=== PATIENT | male | born 1950 | race Caucasian/White ===

== ENCOUNTER → 2016-04-18 | Outpatient (CLI) | payer OTHER, MEDICARE ==
[~2016-04-18] MED LIST: CIPR-250 PO; GABA300C3 PO; NORC5TAB PO; OMEP20CA3 PO; PARO-39 PO; PRAD150C PO; TYLE325T5 PO; VITAPOW38 PO; Vitamin d OR; calcium OR; multivitamin OR; vitamin B12 OR
--- NOTE | 2016-04-18 15:30 | REP ---
MR LUMBAR SPINE WITHOUT AND WITH CONTRAST: HISTORY: Spondylosis. CONTRAST: ProHance 22 mL. COMPARISON: 06/12/2015. Decreased signal intensity on T2-weighted images is present in the L1-2 through L4-5 intervertebral discs. The discs are decreased in height. These findings are consistent with disc degeneration. A diffuse disc bulge is present at the L1-2 level. There is minimal compression of the thecal sac. The L1 nerves exit the neural foramina without compression. A diffuse disc bulge is present at the L2-3 level. There is minimal compression of the thecal sac. There is hypertrophy of the posterior articulating facets. The L2 nerves exit the neural foramina without compression. A left laminectomy defect is present. Enhancing scar tissue is present at the laminectomy site and in the left lateral aspect of the spinal canal. The scar tissue involves the left L3 nerve. A diffuse disc bugle is present at the L3-4 level. There is minimal compression of the thecal sac. There is hypertrophy of the posterior articulating facets. The L3 nerves exit the neural foramina without compression. A diffuse disc bulge is present at the L4-5 level. There is minimal compression of the thecal sac. There is hypertrophy of the posterior articulating facets. The L4 nerves exit the neural foramina without compression. There is no disc bulge or herniation at the L5-S1 level. The L5 nerves exit the neural foramina without compression. The left L5 and S1 nerves are conjoined. The conus medullaris is normal in appearance terminating at the level of the L1-2 intervertebral disc. A hemangioma is present in the L1 vertebral body. Increased signal intensity on T2-weighted images is present in the endplates of the L2 and 3 vertebral bodies. This represents degenerative change. IMPRESSION: 1. Diffuse disc bulges at the L1-2, L3-4, and L4-5 levels with minimal thecal sac compression. 2. Diffuse disc bulge at the L2-3 level with minimal thecal sac compression. A left laminectomy defect is present. Scar tissues involves the left L3 nerve. The postoperative change is a new finding. Signed by Evert Campa MD 04/18/2016 03:34 P
== END ==
LOC: M RAD 13:48
PROVIDERS: ATTEND Neurological Surgery
DX: M47.16 Other spondylosis with myelopathy, lumbar region (principal)

== ENCOUNTER → 2016-05-11 | Outpatient (CLI) | payer MEDICARE ==
--- NOTE | 2016-05-11 12:51 | REP ---
Clinical: Partial left retinal artery occlusion. Technique: Dutton scale and color Doppler evaluation using linear high frequency transducer Findings: Two-dimensional dutton scale and color images demonstrate normal arterial lumen with laminar flow and no appreciable narrowing. Color Doppler interrogation demonstrates normal arterial wave patterns and velocities with no significant spectral broadening. Normal flow direction is appreciated in the bilateral vertebral arteries. RIGHT (cm/s) LEFT (cm/s) ICA peak systolic velocity 45.2 47.8 ICA diastolic velocity 10.9 16.5 ECA peak systolic velocity 41.8 73.5 CCA peak systolic velocity 85.4 101.6 ICA/CCA ratio 0.5 0.4 Impression: No hemodynamically significant areas of narrowing or stenosis appreciated. Based on set standards narrowing falls within the normal range. Signed by Benjy Crenshaw MD 05/11/2016 12:43 P
== END ==
LOC: M RAD 10:29
PROVIDERS: ATTEND Ophthalmology
DX: H34.212 Partial retinal artery occlusion, left eye (principal)

== ENCOUNTER 2019-12-17 10:53 | Inpatient (IN) | payer MEDICARE ==
[2019-12-17] VITALS (7 sets, daily range): BP systolic 121–136; BP diastolic 58–65
[~2019-12-17] VITALS: Ht 167.6 cm; Wt 117.3 kg
[~2019-12-17 10:53] MED LIST changes: +GABA-843 PO; -GABA300C3 PO; +NORC1TAB7 PO; -NORC5TAB PO; +OMEP1CAP73 PO; -OMEP20CA3 PO; -PARO-39 PO; +PARO20TA4 PO; -PRAD150C PO; +PRAD150C6 PO
[2019-12-17 11:22] LABS: BASO % 0.2 % (0.0-1.0); EOS # 0.1 10^3/uL (0.0-0.5); EOS % 0.7 % (0.0-3.0); HEMATOCRIT 30.1 % (42.0-52.0); HEMOGLOBIN 8.9 g/dl (13.5-17.5); LYMPH # 0.7 10^3/uL (1.5-5.0); LYMPH % 7.8 % (24.0-44.0); MEAN CORPUSCULAR HEMOGLOBIN 25.6 pg (27.0-33.0); MEAN CORPUSCULAR HGB CONC 29.6 g/dl (32.0-36.5); MEAN CORPUSCULAR VOLUME 86.5 fl (80.0-96.0); MONO # 0.6 10^3/uL (0.0-0.8); MONO % 6.2 % (0.0-5.0); NEUTROPHILS # 7.7 10^3/uL (1.5-8.5); NEUTROPHILS % 84.4 % (36.0-66.0); PLATELET COUNT, AUTOMATED 269 10^3/uL (150-450); RED BLOOD COUNT 3.48 10^6/uL (4.30-6.10); WHITE BLOOD COUNT 9.1 10^3/uL (4.0-10.0)
--- NOTE | 2019-12-17 11:25 | REP ---
INDICATION: Syncope/near-syncope. COMPARISON: 06/09/2015. TECHNIQUE: Single frontal portable view of the chest is performed. FINDINGS: There is no acute infiltrate or pulmonary edema. Heart is upper limits of normal in size. There is calcification of the thoracic aorta. The mediastinal silhouette is otherwise unremarkable. IMPRESSION: No acute infiltrate. <Electronically signed by Laith Dutton > 12/17/19 [id number]
[2019-12-17] MEDS ORDERED: ATROPINE SULF 1MG/10ML SYRINGE (J0461) As Ordered ONE (11:32)
[2019-12-17 11:35] LABS: INR 1.77
[2019-12-17 11:36] LABS: PARTIAL THROMBOPLASTIN TIME 27.5 SECONDS (24.2-38.5)
[2019-12-17] MEDS ORDERED: DOBUTamine HCL 500,000 MCG in IV 1 EA IV SCH (11:45)
[2019-12-17] MEDS ORDERED: LR 1,000 ML IV SCH (11:45)
[2019-12-17] MEDS ORDERED: ISOS30TA4 PO (11:59)
[2019-12-17] MEDS ORDERED: XARE20TA PO (11:59)
[2019-12-17] MEDS ORDERED: ATOR40TA75 PO (11:59)
[2019-12-17] MEDS ORDERED: CLOP75TA2 PO (11:59)
[2019-12-17] MEDS ORDERED: METO1TAB32 PO (11:59)
[2019-12-17] MEDS ORDERED: NITR4TASL SL (11:59)
[2019-12-17] MEDS ORDERED: PARO20TA3 PO (11:59)
[2019-12-17] MEDS ORDERED: GABA-843 PO ×2 (11:59)
[2019-12-17] MEDS ORDERED: FLINCHW11 PO (11:59)
[2019-12-17] MEDS ORDERED: MEMA1TAB3 PO (11:59)
[2019-12-17] MEDS ORDERED: AMLO1TAB24 PO (11:59)
[2019-12-17] MEDS ORDERED: PANT20TA51 PO (11:59)
[2019-12-17 12:15] LABS: FREE T4 1.06 NG/DL (0.76-1.46); THYROID STIMULATING HORMONE 1.25 uIU/ML (0.358-3.740)
[2019-12-17] MEDS ORDERED: MIDAZOLAM INJ 2MG/2ML VIAL (J2250 PER 1MG) As Ordered ONE (13:30)
[2019-12-17] MEDS ORDERED: LIDOCAINE 2% 100MG/5ML SDV (FOR ANES.) As Ordered ONE (13:31)
[2019-12-17] MEDS ORDERED: fentaNYL 100 MCG/2 ML INJECTION (J3010) As Ordered ONE (13:31)
[2019-12-17] MEDS ORDERED: propofoL 500 MG/50 ML VIAL As Ordered ONE (13:31)
[2019-12-17] MEDS ORDERED: propofoL 200 MG/20 ML VIAL As Ordered ONE ×2 (13:32→16:04)
[2019-12-17] MEDS ORDERED: LIDOCAINE 1% SDV 30ML VIAL As Ordered ONE (15:10)
[2019-12-17] MEDS ORDERED: ceFAZolin 2 GM/D5W 50 ML IV BAG (J0690 PER 500MG) As Ordered ONE (15:10)
[2019-12-17] MEDS ORDERED: PHENYLephrine HCL 500 MCG/5 ML (100MCG/ML) SYRINGE (J2370) As Ordered ONE (15:50)
[2019-12-17] MEDS ORDERED: ACETAMINOPHEN TAB 650MG DOSE (2X325MG) PO PRN (16:15)
[2019-12-17] MEDS ORDERED: KETOROLAC 30 MG/ML 1ML VIAL IV PRN (16:15)
[2019-12-17] MEDS: LR 500 ML IV SCH ×4 (17:00→19:35)
[2019-12-17] MEDS ORDERED: ONDANSETRON 4MG/2ML VIAL As Ordered ONE (17:12)
--- NOTE | 2019-12-17 17:21 | REP ---
INDICATION: S/P PACEMAKER INSERTION. COMPARISON: 12/17/2019 at 11:12 a.m. TECHNIQUE: AP portable upright semi-erect chest. FINDINGS: There is a new single lead pacer over the left upper chest with skin lidia and the lead extending into the right ventricle. There is no effusion or acute infiltrate heart size exaggerated by lordotic AP portable technique. Lung parks without infiltrate effusion or evidence of edema. IMPRESSION: 1. Single lead pacer over the left upper chest without effusion or pneumothorax on the left side. Pacer lead tip in the right ventricle. 2. No cardiomegaly edema effusion or acute infiltrate. <Electronically signed by Senthil Mejia > 12/17/19 [id number]
[2019-12-17] MEDS ORDERED: ONDANSETRON 4MG/2ML VIAL IV PRN (17:30)
[2019-12-17] MEDS ORDERED: fentaNYL 100 MCG/2 ML INJECTION (J3010) IV PRN (17:30)
[2019-12-17 17:36] LABS: HEMATOCRIT 22.8 % (42.0-52.0)
[2019-12-17] MEDS ORDERED: GABAPENTIN 300 MG CAP PO PRN (17:45)
[2019-12-17 17:46] LABS: HEMOGLOBIN 6.9 g/dl (13.5-17.5)
--- NOTE | 2019-12-17 17:55 | HPEPDOC ---
General Date of Admission 12/17/19 Date of Service: Dec 17, 2019 Chief Complaint The patient is a 69-year-old male admitted with a reason for visit of Symptomatic Bradycardia. Source: Patient Exam Limitations: No limitations Timing/Duration: 4-6 hours Severity: Moderate History of Present Illness Patient is 69 years old male with past medical history of gastric bypass in 2009, atrial fibrillation, hypertension, hyperlipidemia, coronary artery diseases with stents placement 3 weeks ago was admitted to the hospital for pacemaker placement due to hemoglobin block and bradycardia of 30. Dr. Rolle performed procedure, after the procedure patient developed hematemesis. Patient was found to have hemoglobin of 8.9, hematocrit of 30.1. Patient was on the xarelto, aspirin and Plavix after stents placement. Home Medications Scheduled Amlodipine Besylate (Amlodipine Besylate) 5 Mg Tablet, 5 MG PO QHS, (Reported) Atorvastatin Calcium (Atorvastatin Calcium) 40 Mg Tablet, 40 MG PO QHS, (Reported) Clopidogrel Bisulfate (Clopidogrel) 75 Mg Tablet, 75 MG PO DAILY, (Reported) Gabapentin (Gabapentin) 300 Mg Capsule, 300 MG PO QHS, (Reported) Isosorbide Mononitrate (Isosorbide Mononitrate ER) 30 Mg Tab.er.24h, 30 MG PO DAILY, (Reported) Memantine HCl (Memantine HCl) 5 Mg Tablet, 5 MG PO BID, (Reported) Metoprolol Succinate (Metoprolol Succinate) 25 Mg Tab.er.24h, 12.5 MG PO QAM, (Reported) Pantoprazole Sodium (Pantoprazole Sodium) 20 Mg Tablet.dr, 20 MG PO QHS, (Reported) Paroxetine HCl (Paroxetine HCl) 20 Mg Tablet, 20 MG PO DAILY, (Reported) Pedi Multivit No.7/Folic Acid (Flintstones Tab Chew) 100 Mcg Tab.chew, 1 CHW PO DAILY, (Reported) Rivaroxaban (Xarelto) 20 Mg Tablet, 20 MG PO QHS, (Reported) Scheduled PRN Gabapentin (Gabapentin) 300 Mg Capsule, 300 MG PO DAILY PRN for PAIN, (Reported) Nitroglycerin (Nitrostat) 0.4 Mg Tab.subl, 0.4 MG SL NITRO PRN for CHEST PAIN, (Reported) Allergies Coded Allergies: No Known Allergies (Unverified , 12/17/19) Past Medical History Medical History gastric bypass in 2009, atrial fibrillation, hypertension, hyperlipidemia, coronary artery diseases with stents placement 3 weeks ago Surgical History 1. Gastric bypass in 2009. 2. Cholecystectomy in 2005. 3. Appendectomy in 2002. 4. Umbilical hernia repair in the . 5. Bilateral cataract surgery in 2014. 6. He has had multiple surgeries for cleft palate. Cardiac Stents placement in November 2019 Family History I personally reviewed family history and found not pertinent Social History * Smoker: Denies Alcohol: Denies Drugs: denies A-FIB/CHADSVASC A-FIB History Current/History of A-Fib/PAF?: Yes Current PO Anticoag Therapy: Yes Review of Systems Constitutional: Denies: Chills, Fever Eyes: Denies: Pain ENT: Denies: Head Aches Skin: Denies: Rash Pulmonary: Denies: Dyspnea, Cough Cardiovascular: Denies: Chest Pain, Palpitations Gastrointestinal: Reports: Nausea, Vomiting, Hematochezia Genitourinary: Denies: Dysuria Hematologic: Denies: Bruising Endocrine: Denies: Polydipsia, Polyphagia Musculoskeletal: Denies: Neck Pain Neurological: Denies: Weakness Psych: Reports: Mood Normal Physical Examination General Exam: Positive: Alert, Cooperative ENT Exam: Positive: Atraumatic Neck Exam: Positive: Supple; Negative: JVD Chest Exam: Positive: Clear to auscultation Heart Exam: Positive: Irregular Rhythm Telemetry: Positive: Atrial fibrillation Abdomen Exam: Positive: Normal bowel sounds Extremity Exam: Negative: Clubbing, Cyanosis Skin Exam: Positive: Nl turgor and temperature Neuro Exam: Positive: Cranial Nerves 3-12 NL Psych Exam: Positive: Mental status NL Vital Signs Vital Signs Date Time Temp Pulse Resp B/P (MAP) Pulse Ox O2 Delivery O2 Flow Rate FiO2 12/17/19 17:27 71 18 126/60 (82) 97 Nasal Cannula 3 12/17/19 17:00 97.4 Laboratory Data Labs 24H Laboratory Tests 2 12/17/19 11:08: Immature Granulocyte % (Auto) 0.7, Neutrophils (%) (Auto) 84.4H, Lymphocytes (%) (Auto) 7.8L, Monocytes (%) (Auto) 6.2H, Eosinophils (%) (Auto) 0.7, Basophils (%) (Auto) 0.2, Neutrophils # (Auto) 7.7, Lymphocytes # (Auto) 0.7L, Monocytes # (Auto) 0.6, Eosinophils # (Auto) 0.1, Basophils # (Auto) 0.0, Nucleated Red Blood Cells % (auto) 0.0, Magnesium Level 2.0, Thyroid Stimulating Hormone (TSH) 1.250, Free Thyroxine 1.06 12/17/19 11:12: Prothrombin Time 21.0H, Prothromb Time International Ratio 1.77, Activated Partial Thromboplast Time 27.5, Mix PTT Patient/Normal 1:1 12/17/19 11:13: POC Troponin I (Misc) 0.02 12/17/19 11:25: POC Glucose (Misc Panel) 122H, POC Sodium (Misc Panel) 141, POC Potassium (Misc Panel) 4.7, POC Chloride (Misc Panel) 106, POC Total CO2 (Misc Panel) 24.0, POC Blood Urea Nitrogen (Misc Panel 30H, POC Ionized Calcium (Misc Panel) 4.7, POC Creatinine (Misc Panel) 1.0, POC Hematocrit (Misc Panel) 31.0L 12/17/19 11:29: POC Lactate (Misc Panel) 1.46 12/17/19 11:52: Coronavirus (COVID-19)(PCR) NEGATIVE CBC/BMP Laboratory Tests 12/17/19 11:08 Assessment/Plan Patient is 69 years old male with past medical history of gastric bypass in 2009, atrial fibrillation, hypertension, hyperlipidemia, coronary artery diseases with stents placement 3 weeks ago was admitted to the hospital for pacemaker placement due to hemoglobin block and bradycardia of 30. Dr. Rolle performed procedure, after the procedure patient developed hematemesis. Patient was found to have hemoglobin of 8.9, hematocrit of 30.1. Patient was on the xarelto, aspirin and Plavix after stents placement. Problems (1) GI bleed Status: Acute Problem Text: Most likely secondary to triple therapy with xarelto, aspirin and Plavix H&H every 6 hours IV fluid 2 units of blood transfusion Nothing by mouth for now Aspirin, xarelto and Plavix on hold PPI IV (2) Lumbar radiculopathy Status: Acute Problem Text: Continue home meds (3) AV block Status: Acute Problem Text: placed Pacemaker Heart rate under control for now Telemetry (4) Permanent atrial fibrillation Status: Chronic Problem Text: Oral targeted anticoagulation on hold due to GI bleed Heart rate under control (5) Coronary artery disease Status: Chronic Problem Text: Status post cardiac stent placement 3 weeks ago Continue statin Aspirin, Plavix on hold due to acute GI bleed Appreciate/agree with rotary furnace operator consult Plan / VTE VTE Prophylaxis Ordered?: No VTE Exclusion Pharmacological: Active Bleeding CHANDNI BELTRAN DO Dec 17, 2019 17:54
[2019-12-17] MEDS ORDERED: NITROGLYCERIN 0.4 MG SUBL TABLET SL PRN (18:00)
[2019-12-17] MEDS: ATORVASTATIN 20 MG TAB PO SCH (21:00)
[2019-12-17] MEDS: GABAPENTIN 300 MG CAP PO SCH (21:00)
[2019-12-17] MEDS: PANTOPRAZOLE 40MG VIAL (C9113 PER 1) IV SCH (21:51)
[2019-12-17] MEDS: NS 1,000 ML IV SCH (21:51)
[2019-12-17 22:15] LABS: BASO % 0.2 % (0.0-1.0); EOS % 0.1 % (0.0-3.0); HEMATOCRIT 26.2 % (42.0-52.0); LYMPH # 1.1 10^3/uL (1.5-5.0); MEAN CORPUSCULAR HGB CONC 30.5 g/dl (32.0-36.5); MEAN CORPUSCULAR VOLUME 85.1 fl (80.0-96.0); MONO # 0.8 10^3/uL (0.0-0.8); MONO % 7.2 % (0.0-5.0); NEUTROPHILS # 8.9 10^3/uL (1.5-8.5); NEUTROPHILS % 81.9 % (36.0-66.0); PLATELET COUNT, AUTOMATED 220 10^3/uL (150-450); RED BLOOD COUNT 3.08 10^6/uL (4.30-6.10); WHITE BLOOD COUNT 10.9 10^3/uL (4.0-10.0)
[2019-12-17 22:47] LABS: ALBUMIN 2.6 GM/DL (3.2-5.2); ALT/SGPT 15 U/L (12-78); BILIRUBIN,TOTAL 1.2 MG/DL (0.2-1.0); BLOOD UREA NITROGEN 44 MG/DL (7-18); CALCIUM LEVEL 7.9 MG/DL (8.8-10.2); CARBON DIOXIDE LEVEL 25 MEQ/L (21-32); CHLORIDE LEVEL 112 MEQ/L (98-107); CREATININE FOR GFR 1.02 MG/DL (0.70-1.30); GLOMERULAR FILTRATION RATE > 60.0 (>49); GLUCOSE, FASTING 116 MG/DL (70-100); MAGNESIUM LEVEL 1.9 MG/DL (1.8-2.4); POTASSIUM SERUM 4.7 MEQ/L (3.5-5.1); SODIUM LEVEL 142 MEQ/L (136-145); TOTAL PROTEIN 5.4 GM/DL (6.4-8.2)
[2019-12-17] MEDS: ceFAZolin SOD 1 GM in D5W MINI-BAG PLUS 50 ML IV SCH (22:54)
[2019-12-18] VITALS (18 sets, daily range): BP systolic 119–178; BP diastolic 57–95
[2019-12-18 03:14] LABS: HEMATOCRIT 25.2 % (42.0-52.0); HEMOGLOBIN 7.7 g/dl (13.5-17.5)
[2019-12-18] MEDS: NS 1,000 ML IV SCH (05:09)
[2019-12-18] MEDS: ceFAZolin SOD 1 GM in D5W MINI-BAG PLUS 50 ML IV SCH ×2 (06:25→15:35)
--- NOTE | 2019-12-18 07:41 | CR.PDOC ---
General Surgery Consultation Date of Consultation 12/18/19 History and Physical CONSULT REPORT FOR: Dr. Rolle (cardiology), hospitalist service REASON FOR CONSULTATION: Patient is a 69 year old male who was found to have symptomatic bradycardia and had a pacemaker placed. While he was brought in the recovery room he had about 50 mls of hematemesis of (fresh blood and clots). He reports he was feeling "sick" the whole morning and felt better after he vomitted blood. He denies any prior episodes of similar symptoms. He has a history of gastric bypass about 5 years ago. He had an upper endoscopy done in 2016 showing some edema at the gastrojejunostomy but no ulcerations. He is maintained on aspirin, plavix and xarelto for his atrial fibrillation. HISTORY OF PRESENT ILLNESS: PAST MEDICAL HISTORY: 1. . PAST SURGICAL HISTORY: INCLUDES: 1. . PREVIOUS ANESTHESIA REACTIONS: ALLERGIES: Please see below. FAMILY HISTORY: . HOME MEDICATIONS: Please see below. REVIEW OF SYSTEMS: GENERAL: [Denies chills, reports weight gain, reports feeling febrile yesterday]. HEENT: [Denies blurred vision and double vision. Denies ear symptoms. Denies hoarseness]. NECK: Denies any neck pain]. CARDIOVASCULAR: [Denies chest pain and palpitations]. MUSCULOSKELETAL: [Denies arthralgias, back pain and thrombophlebitis]. SKIN: [Denies rash]. NEUROLOGIC: [Denies headache, stroke and transient ischemic attack]. PSYCHIATRIC: [Denies anxiety and depression]. ENDOCRINE: [Denies thyroid disease]. HEMATOLOGY/ONCOLOGY: [Denies bleeding or clotting disorder]. HEART: [Denies any chest pains, palpitations, paroxysmal dyspnea, orthopnea]. PULMONARY: [Denies chronic cough, dyspnea and wheezing]. GASTROINTESTINAL: [Denies rectal bleeding, family history of colon cancer, constipation, diarrhea, dysphagia, heartburn and jaundice]. GENITOURINARY: [Denies dysuria, frequency, hematuria and nocturia]. ENDOCRINE: [Denies polydipsia, polyphagia, polyuria, heat or cold intolerance]. INFECTIOUS: [Denies any recent upper respiratory tract infection, UTI, need for use of antibiotics]. NUTRITION: [Reports good appetite]. PHYSICAL EXAMINATION: VITALS SIGNS: Please see below. GENERAL APPEARANCE:[Patient seen, laying in bed, awake, alert, and oriented. Comfortable, in no acute distress]. SKIN: [Warm and moist]. HEENT: [Normocephalic, atraumatic. Margaret palpebral conjunctiva, anicteric sclerae. Lips and mucosa appear moist]. NECK: [Supple, no thyromegaly. No obvious jugular venous distention]. LUNGS: [Clear to auscultation bilaterally. No wheezing appreciated]. HEART: [No chest wall abnormalities. Regular rate and rhythm with no murmurs appreciated]. ABDOMEN: Abdomen is , soft, . [No hepatosplenomegaly. No umbilical or groin herniations, nondistended. No noticeable rebound or guarding. No grimacing with palpation. No rebound tenderness. No masses appreciated]. EXTREMITIES: [Extremities have no deformities. No edema identified] ANCILLARIES: . LABORATORY DATA: Please see below. IMAGING STUDIES: . IMPRESSION AND PLAN: hematemesis. Upper gastrointestinal bleeding gasric bypass status symptomatic bradycardia Patient received 3 u prbc overnight, hemodynamically stable. Will bring him to OR for diagnostic and possibly therapeutic upper gastrointestinal endoscopy. Vital Signs Vital Signs Date Time Temp Pulse Resp B/P (MAP) Pulse Ox O2 Delivery O2 Flow Rate FiO2 12/18/19 05:02 98.7 75 140/65 96 Nasal Cannula 3.0 12/18/19 04:00 16 I&Os I&O- Last 24 Hours up to 6 AM 12/18/19 06:00 Intake Total 2165 ml Output Total 1880 ml Balance 285 ml Laboratory Data Labs 24H Laboratory Tests 2 12/17/19 11:08: Immature Granulocyte % (Auto) 0.7, Neutrophils (%) (Auto) 84.4H, Lymphocytes (%) (Auto) 7.8L, Monocytes (%) (Auto) 6.2H, Eosinophils (%) (Auto) 0.7, Basophils (%) (Auto) 0.2, Neutrophils # (Auto) 7.7, Lymphocytes # (Auto) 0.7L, Monocytes # (Auto) 0.6, Eosinophils # (Auto) 0.1, Basophils # (Auto) 0.0, Nucleated Red Blood Cells % (auto) 0.0, Magnesium Level 2.0, Thyroid Stimulating Hormone (TSH) 1.250, Free Thyroxine 1.06 12/17/19 11:12: Prothrombin Time 21.0H, Prothromb Time International Ratio 1.77, Activated Partial Thromboplast Time 27.5, Mix PTT Patient/Normal 1:1 12/17/19 11:13: POC Troponin I (Misc) 0.02 12/17/19 11:25: POC Glucose (Misc Panel) 122H, POC Sodium (Misc Panel) 141, POC Potassium (Misc Panel) 4.7, POC Chloride (Misc Panel) 106, POC Total CO2 (Misc Panel) 24.0, POC Blood Urea Nitrogen (Misc Panel 30H, POC Ionized Calcium (Misc Panel) 4.7, POC Creatinine (Misc Panel) 1.0, POC Hematocrit (Misc Panel) 31.0L 12/17/19 11:29: POC Lactate (Misc Panel) 1.46 12/17/19 11:52: Coronavirus (COVID-19)(PCR) NEGATIVE 12/17/19 22:03: Immature Granulocyte % (Auto) 0.6, Neutrophils (%) (Auto) 81.9H, Lymphocytes (%) (Auto) 10.0L, Monocytes (%) (Auto) 7.2H, Eosinophils (%) (Auto) 0.1, Basophils (%) (Auto) 0.2, Neutrophils # (Auto) 8.9H, Lymphocytes # (Auto) 1.1L, Monocytes # (Auto) 0.8, Eosinophils # (Auto) 0.0, Basophils # (Auto) 0.0, Nucleated Red Blood Cells % (auto) 0.0, Anion Gap 5L, Glomerular Filtration Rate > 60.0, Calcium Level 7.9L, Magnesium Level 1.9, Total Bilirubin 1.2H, Aspartate Amino Transf (AST/SGOT) 17, Alanine Aminotransferase (ALT/SGPT) 15, Alkaline Phosphatase 52, Total Protein 5.4L, Albumin 2.6L, Albumin/Globulin Ratio 0.9 CBC/BMP Laboratory Tests 12/17/19 11:08 12/17/19 17:28 12/17/19 22:03 12/18/19 03:05 Home Medications Scheduled Amlodipine Besylate (Amlodipine Besylate) 5 Mg Tablet, 5 MG PO QHS, (Reported) Atorvastatin Calcium (Atorvastatin Calcium) 40 Mg Tablet, 40 MG PO QHS, (Reported) Clopidogrel Bisulfate (Clopidogrel) 75 Mg Tablet, 75 MG PO DAILY, (Reported) Gabapentin (Gabapentin) 300 Mg Capsule, 300 MG PO QHS, (Reported) Isosorbide Mononitrate (Isosorbide Mononitrate ER) 30 Mg Tab.er.24h, 30 MG PO DAILY, (Reported) Memantine HCl (Memantine HCl) 5 Mg Tablet, 5 MG PO BID, (Reported) Metoprolol Succinate (Metoprolol Succinate) 25 Mg Tab.er.24h, 12.5 MG PO QAM, (Reported) Pantoprazole Sodium (Pantoprazole Sodium) 20 Mg Tablet.dr, 20 MG PO QHS, (Reported) Paroxetine HCl (Paroxetine HCl) 20 Mg Tablet, 20 MG PO DAILY, (Reported) Pedi Multivit No.7/Folic Acid (Flintstones Tab Chew) 100 Mcg Tab.chew, 1 CHW PO DAILY, (Reported) Rivaroxaban (Xarelto) 20 Mg Tablet, 20 MG PO QHS, (Reported) Scheduled PRN Gabapentin (Gabapentin) 300 Mg Capsule, 300 MG PO DAILY PRN for PAIN, (Reported) Nitroglycerin (Nitrostat) 0.4 Mg Tab.subl, 0.4 MG SL NITRO PRN for CHEST PAIN, (Reported) Allergies Coded Allergies: No Known Allergies (Unverified , 12/17/19) BETH HURLEY MD Dec 18, 2019 07:41
--- NOTE | 2019-12-18 08:36 | REP ---
INDICATION: Post pacemaker. COMPARISON: Comparison chest x-ray December 17, 2019. TECHNIQUE: Two views.. FINDINGS: A unipolar pacemaker is again seen in the right heart view of the left side. Skin lidia seen adjacent to the power plant. There is no evidence of pneumothorax or hydrothorax. Cardiomegaly persists unchanged. The aorta is calcific and tortuous. Monitoring electrodes and oxygen delivery tubing is seen. No infiltrate or effusion is seen. IMPRESSION: Status post transvenous pacemaker insertion. No complication seen. Cardiomegaly.. <Electronically signed by Al Wolfe > 12/18/19 0814
[2019-12-18] MEDS: D5W/0.45% SODIUM CHLORIDE 1,000 ML IV SCH ×2 (08:47→18:56)
[2019-12-18] MEDS: PANTOPRAZOLE 40MG VIAL (C9113 PER 1) IV SCH ×2 (08:51→21:47)
[2019-12-18] MEDS: PARoxetine 20 MG TAB PO SCH (08:51)
[2019-12-18 09:04] LABS: BASO % 0.3 % (0.0-1.0); EOS # 0.1 10^3/uL (0.0-0.5); EOS % 0.5 % (0.0-3.0); HEMATOCRIT 27.5 % (42.0-52.0); HEMOGLOBIN 8.6 g/dl (13.5-17.5); LYMPH # 1.2 10^3/uL (1.5-5.0); LYMPH % 12.8 % (24.0-44.0); MEAN CORPUSCULAR HEMOGLOBIN 26.4 pg (27.0-33.0); MEAN CORPUSCULAR HGB CONC 31.3 g/dl (32.0-36.5); MEAN CORPUSCULAR VOLUME 84.4 fl (80.0-96.0); MONO # 0.9 10^3/uL (0.0-0.8); MONO % 9.7 % (0.0-5.0); NEUTROPHILS % 75.8 % (36.0-66.0); PLATELET COUNT, AUTOMATED 210 10^3/uL (150-450); RED BLOOD COUNT 3.26 10^6/uL (4.30-6.10); WHITE BLOOD COUNT 9.2 10^3/uL (4.0-10.0)
[2019-12-18 09:22] LABS: BLOOD UREA NITROGEN 32 MG/DL (7-18); CALCIUM LEVEL 8.1 MG/DL (8.8-10.2); CARBON DIOXIDE LEVEL 26 MEQ/L (21-32); CHLORIDE LEVEL 112 MEQ/L (98-107); CREATININE FOR GFR 0.88 MG/DL (0.70-1.30); GLOMERULAR FILTRATION RATE > 60.0 (>49); GLUCOSE, FASTING 90 MG/DL (70-100); POTASSIUM SERUM 4.1 MEQ/L (3.5-5.1); SODIUM LEVEL 143 MEQ/L (136-145)
--- NOTE | 2019-12-18 10:45 | IPNPDOC ---
Text Note Date of Service The patient was seen on 12/18/19. NOTE Subjective: Patient received 3 units of blood transfusion since last evening. Patient stated that he feels better. Patient continues to have bowel movement with blood. Objective: GENERAL APPEARANCE: NAD HEENT: no scleral icterus, no JVD, EOMI CARDIOVASCULAR: S1S2, pacemaker in place LUNGS: CTA ABDOMEN: soft & not tender w palpitation MUSCULOSKELETAL: no cyanosis, no swelling INTEGUMENT: no generalized palor NEUROLOGICAL: cranial nerve function from 2-12 intact intact, follows commands, speech not dysarthric Patient is 69 years old male with past medical history of gastric bypass in 2009, atrial fibrillation, hypertension, hyperlipidemia, coronary artery d iseases with stents placement 3 weeks ago was admitted to the hospital for pacemaker placement due to hemoglobin block and bradycardia of 30. Dr. Rolle performed procedure, after the procedure patient developed hematemesis. Patient was found to have hemoglobin of 8.9, hematocrit of 30.1. Patient was on the xarelto, aspirin and Plavix after stents placement. Problems (1) GI bleed Most likely secondary to triple therapy with xarelto, aspirin and Plavix H&H every 6 hours IV fluid Total 3 units of blood transfusion. Hemoglobin stable Nothing by mouth for now. Dr. Medina planned EGD today Aspirin, xarelto and Plavix on hold PPI IV (2) Lumbar radiculopathy Continue home meds (3) AV block placed Pacemaker Heart rate under control for now Telemetry (4) Permanent atrial fibrillation Oral targeted anticoagulation on hold due to GI bleed Heart rate under control (5) Coronary artery disease Status post cardiac stent placement 3 weeks ago Continue statin Aspirin, Plavix on hold due to acute GI bleed Appreciate/agree with leasing agent consult Felix VALLEJO, I+O Felix VALLEJO, I+O Laboratory Tests 12/17/19 11:08 12/17/19 17:28 12/17/19 22:03 12/18/19 03:05 12/18/19 08:40 Vital Signs Date Time Temp Pulse Resp B/P (MAP) Pulse Ox O2 Delivery O2 Flow Rate FiO2 12/18/19 10:00 63 92 Room Air 12/18/19 08:07 98.1 18 152/95 (114) 2.0 I&O- Last 24 Hours up to 6 AM 12/18/19 05:59 Intake Total 1665 ml Output Total 1880 ml Balance -215 ml CHANDNI BELTRAN DO Dec 18, 2019 10:45
--- NOTE | 2019-12-18 11:34 | ECGEPIP ---
[facility] - ED Test Date: 2019-12-17 Pat Name: BRUNO CADE Department: Room: - Gender: Male Director Of Digital Technology: RONALD : 1950 Requested By: JESSE MARINO Order Number: [id number] Reading MD: Renan Romero Measurements Intervals [place] Rate: 53 P: [place]: 0 QRS: 62 QRSD: 87 T: 51 QT: 421 QTc: 398 Interpretive Statements ATRIAL FIBRILLATION WITH SLOW VENTRICULAR RESPONSE SIMILAR TO 06/09/15 Electronically Signed on 12-18-2019 11:33:46 EST by Renan Romero
--- NOTE | 2019-12-18 13:05 | RO ---
DATE OF OPERATION: 12/17/2019 PREOPERATIVE DIAGNOSIS: High-grade atrioventricular (AV) block/chronic atrial fibrillation. POSTOPERATIVE DIAGNOSIS: High-grade atrioventricular (AV) block/chronic atrial fibrillation. PROCEDURE: Implantation of single-chamber ventricular demand pacemaker. IMPLANTING ANVILSMITH: Dr. Doroteo Rolle ANESTHESIOLOGIST: Dr. Helio Mitchell TYPE OF ANESTHESIA: Monitored local anesthesia. 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 Culver for chronic hypertensive heart disease complicated by abnormal EKG and permanent atrial fibrillation. Several months ago, he began having effort-related chest discomfort and underwent testing leading to cardiac catheterization proving high-grade single vessel coronary disease which was successfully stented three weeks ago. He has been on a combination of Xarelto, aspirin, and Plavix. Presents to the emergency room today by ambulance having been found collapsed from the toilet this morning. EMS at the scene recorded heart rates in the 30s per minute. Upon his arrival in our emergency room, he was alert and oriented with heart rate initially 63 beats per minute with blood pressure 155/70 but intermittently was dropping his rate into the low 40s and upper 30s. In the absence of any clear triggering mechanism, Dr. Serrano (covering for Dr. Culver) recommended referral to our pacemaker service. The patient had been NPO from the night before and had last taken his combination anticoagulant/antiplatelet therapy the night before. OTHER PAST MEDICAL HISTORY: Includes longstanding obesity, status post gastric bypass surgery 2009; prior gastritis with upper GI endoscopy March 2014 documenting a hiatal hernia with gastric bypass with small sized pouch, intact staple line with slight gastrojejunal erythema and swelling but no evidence of any bleeding. This pleasant, obese, late middle-aged male lay comfortably. Heart rate at the time of my examination was in the 60s and the regular blood pressure was 155/70 supine, respiratory rate was 16, O2 saturation was 99% on room air. He was afebrile. Weight: 259 pounds. Height: 66 inches. Appeared slightly pale but no icterus. Normal oral moisture. Trachea midline. Neck veins were 2-3 cm above the sternal angle. Normal carotid upstrokes with variable volume related to his arrhythmia. No bruits. Increased anteroposterior chest diameter with symmetrical air entry for both lung parks with no current abnormal adventitious sounds. Apical impulse not palpable. Heart sounds were variable because of his arrhythmia. He has an audible systolic ejection murmur that varied related to his arrhythmia. No diastolic murmur. His abdomen was soft and nontender with no obvious hepatosplenomegaly. Has pitting edema two-thirds up both lower legs with dilated superficial venules. Pedal pulses were symmetrical and palpable. Portable upright chest x-rays in the emergency room showed heart size upper limits of normal with some calcification of the thoracic aorta but normal pulmonary vasculature, clear lung parks with no acute infiltrate or pleural effusion. EKG showed underlying atrial fibrillation with controlled ventricular response averaging in the 60s. There were low voltages with persistent S-waves in v5 and v6 in keeping with his body habitus. No evidence of prior infarction. Subtle infra-apical ST scooping but no significant change from the past. Blood work showed a hemoglobin of 8.9 but the patient adamantly denied any recent GI bleeding including melena. White blood cell count and platelet counts were normal. PT/INR was elevated at 21/1.77. Normal PTT. Chemistry confirmed electrolyte balance with BUN of 30, creatinine of 1.0; random glucose was normal. Ultra sensitive TSH was normal at 1.25. Magnesium was normal at 2.0. Troponin-I level was negative. DESCRIPTION OF PROCEDURE: With the patient in a fasting state, having signed informed consent, and having received Ancef 2 grams IV premedication, he was taken to the operating theater. Numerous skin electrodes were applied to facilitate continuous electrocardiographic monitoring. The left subclavian region was prepped and draped in the usual fashion, and the skin was infiltrated with 1% Xylocaine. The left subclavian vein was catheterized using the micropuncture technique. A 5-cm linear incision was made several centimeters below and parallel to the left clavicle. Dissection was carried down to the level of the pectoralis fascia and a pocket was fashioned below the level of the incision line. A single bipolar, screw-in active fixation pacing lead was then positioned to the right ventricular apex under fluoroscopic and electrocardiographic control. The right ventricular lead ([employer], model number [id number], serial number [id number]) measurements were focal and simulation threshold of 1.0V/0.4 ms/impedance 650 ohms. The R wave amplitudes measured 12.0 mV. This lead was secured in position with a sleep suture at its insertion site. It was then connected to a single-chamber pulse generator ([employer], model number [id number], serial number [id number]) and appropriate VVI pacing was documented. The pulse generator was placed in the pocket and secured in position with a suture through the right upper-hand corner of the epoxy header. The subcutaneous tissues were approximated using a running chromic suture and the skin was closed using lidia. A dry dressing was applied and the patient was returned to the recovery room in good condition. Despite the patient's combination Xarelto, aspirin and Plavix, estimated blood loss was no more than 5-10 mL. No apparent complications in the operating room. Postoperative upright chest x-ray confirmed stable lead position with no pneumothorax. His postoperative EKG showed atrial fibrillation with a controlled ventricular response. His device appropriately sensing his spontaneous activity and currently inhibited. Within a short time of his arrival in the emergency room, patient had a bout of hematemesis with clot of at least 50 mL. In light of his combination of anticoagulant and antiplatelet therapy, precaution was taken ahead of time to arrange for blood bank typing and crossing. Associated with his hematemesis, his blood pressure dipped to 88/60. He responded well to a bolus of 500 mL of Ringer's lactate and we requested two units of packed red blood cells promptly. At this point, consultations were placed with general surgery - Dr. Medina - as well as the hospitalist service. Dr. Serrano was notified of his problems. The patient was transferred in a stable position to the intensive care unit for close observation. Dr. Medina and the hospitalist service will be caring for his medical problems. We will continue to check his pacemaker and have ordered Ancef 1 gram IV every 8 hours for three doses. MTDD
[2019-12-18] MEDS ORDERED: fentaNYL 100 MCG/2 ML INJECTION (J3010) As Ordered ONE (13:19)
[2019-12-18] MEDS ORDERED: LIDOCAINE 2% 100MG/5ML SDV (FOR ANES.) As Ordered ONE (13:19)
[2019-12-18] MEDS ORDERED: propofoL 200 MG/20 ML VIAL As Ordered ONE (13:19)
[2019-12-18] MEDS ORDERED: MIDAZOLAM 5MG/ML 1ML VIAL (J2250 PER 1MG) As Ordered ONE (13:19)
[2019-12-18] MEDS ORDERED: CETACAINE SPRAY 5GM As Ordered ONE (13:43)
[2019-12-18] MEDS ORDERED: EPINEPHrine 1MG/10ML SYRINGE 1.5IN As Ordered ONE (14:17)
[2019-12-18] MEDS ORDERED: SUCCINYLCHOLINE 100 MG/5 ML SYRINGE (J0330) As Ordered ONE (14:24)
[2019-12-18] MEDS ORDERED: ROCURONIUM BROMIDE 50 MG/5 ML VIAL As Ordered ONE (14:24)
[2019-12-18] MEDS ORDERED: dexameTHASONE 4 MG/ML 1ML VIAL (J1100 PER 1MG) As Ordered ONE (14:31)
[2019-12-18] MEDS ORDERED: ONDANSETRON 4MG/2ML VIAL As Ordered ONE (14:31)
[2019-12-18] MEDS ORDERED: SUGAMMADEX SODIUM 500 MG/5 ML VIAL (BRIDION) As Ordered ONE (14:36)
[2019-12-18] MEDS ORDERED: ceFAZolin 1GM VIAL (J0690 PER 500MG) As Ordered ONE (15:22)
[2019-12-18] MEDS ORDERED: LR 1,000 ML IV SCH (16:00)
[2019-12-18] MEDS ORDERED: ONDANSETRON 4MG/2ML VIAL IV PRN (16:00)
[2019-12-18] MEDS ORDERED: METOCLOPRAMIDE INJ 10MG/2ML VIAL (J2765 PER 1) IV PRN (16:00)
[2019-12-18] MEDS ORDERED: fentaNYL 100 MCG/2 ML INJECTION (J3010) IV PRN (16:00)
--- NOTE | 2019-12-18 16:53 | CR ---
DATE OF CONSULTATION: 12/17/2019 REFERRING PHYSICIAN: Dr. Allen REASON FOR CONSULTATION: Bradycardia and syncope. HISTORY OF PRESENT ILLNESS: Mr. Villa presented to emergency room by ambulance earlier today after he suffered near syncopal event at home. He woke up with the sensation of urgency, went to the bathroom and had a bowel movement; and after he stood up from toilet and was walking back towards his bedroom had near syncopal event. His called ambulance; and on arrival, he was found to be quite bradycardic with recorded heart rate in the 30s and underlying atrial fibrillation. On the way to the hospital, his condition stabilized; and while in the emergency room, he was running relatively bradycardic with heart rate around 50 beats per minute with atrial fibrillation. Then he had yet an another near syncope during which his heart rate slowed down into 30s. Subsequently, it was felt that bradycardia is likely responsible for his hypotension and he was taken to the OR by Dr. Rolle and a single chamber pacemaker was implanted. In the recovery period though, he had yet another near syncopal event; this time with pacemaker already in place. It was followed by hemoptysis or possibly emesis with a significant amount of blood. At this point, the patient admitted that this morning the bowel movement looked very dark to him. He cannot provide much additional details. His admission hemoglobin was 8.9 and dropped down to 6.9; and at this point, it became obvious that the near syncopal events were likely related to blood loss rather than bradycardia, even though it likely was contributing as well. When I saw the patient in the recovery room, he felt comfortable. He denies any chest discomfort. He denies any sensation of palpitations, denies any dyspnea. He has not noted any consistent melena, even though he does watch his bowel movements regularly. He denies any prior episodes of hematemesis or hemoptysis. PAST MEDICAL HISTORY: 1. Coronary artery disease. He had cardiac catheterization on November 24 and received drug-eluting stent to right coronary artery for single vessel CAD. He had low normal left ventricular systolic function and high LVEDP. 2. Hypertension. 3. Dyslipidemia. 4. Obstructive sleep apnea. 5. Chronic atrial fibrillation. 6. History of morbid obesity with history of bariatric surgery. 7. Gastroesophageal reflux disease (GERD). 8. Anxiety. 9. History of melanoma. SURGICAL HISTORY: Positive for appendectomy, bariatric surgery, cleft palate repair, and hernia repair and currently a pacemaker implant earlier today. SOCIAL HISTORY: The patient is , never smoked, as noted lives with his , no significant alcohol use. FAMILY HISTORY: His mother of cancer and father of kidney disease. REVIEW OF SYSTEMS: As per history of present illness, otherwise negative. He specifically denies any prior obvious bleeding events. He has not had any recent chest pains and coronary intervention. No prior history of syncope or near syncope. No fever, chills, nausea or vomiting. The rest as per history of present illness or negative. OUTPATIENT MEDICATIONS: Aspirin 81 mg a day, Plavix 75 mg a day, Xarelto 20 mg a day, Paxil 20 mg a day, Prilosec 20 mg a day, Toprol XL 12.5 mg a day, Namenda 5 mg daily, isosorbide mononitrate 50 mg daily, Neurontin 300 mg daily, vitamin D3, atorvastatin 40 mg daily and amlodipine 5 mg daily. PHYSICAL EXAMINATION: The patient is an obese, elderly man who appears approximately his age. On my examination, he was completely flat in bed, look comfortable. Denies any symptoms. Vital signs: Blood pressure 121/58, heart rate in 70s, atrial fibrillation with occasional pacing, saturation was 96% on 3 liters oxygen by nasal cannula. Weight was recorded in the emergency room of 117.3 kg. He was alert, oriented and appropriate. I did not appreciate any jugular venous pressure elevation. Lungs were reasonably clear. He had bandaged pacemaker site under his left clavicle with a sling on left upper extremity. Heart examination otherwise irregularly irregular rhythm. I did not appreciate any distinct murmur or gallop. Lungs were clear with good air movement. Abdomen obese, but soft without obvious tenderness. No peripheral edema Peripheral pulses palpable. Neurologically, he was intact. LABORATORY DATA: Complete blood count (CBC) on admission revealed hemoglobin 8.9 which subsequently dropped to 6.9, but at 10 o'clock shortly before my dictation. It is up again to 8.0 after transfusions. WBC count was 9.0 and platelet count 269,000. TSH 1.2, magnesium 2.0, INR 1.8. Chest x-ray: Otherwise for pacemaker placement, reveals appropriate position of the lead and no evidence for pneumothorax. ECG revealed atrial fibrillation with right bundle branch block, non-specific repolarization abnormalities. ASSESSMENT AND PLAN: Mr. Villa is a 69-year-old man who has recent history of intervention with drug-eluting stent to right coronary artery and chronic atrial fibrillation. He was on an outpatient basis on combination of aspirin, Plavix and Xarelto. Apparently, he presented with near syncope and was found to be simultaneously bradycardic, as well as having most likely GI bleed. I suspect peptic ulcer disease considering history of bariatric surgery. At this point, his antiplatelet medications and Xarelto will be held at least until tomorrow, and then it can be decided when to restart it. My recommendation would be to restart Plavix first, as soon as possible, while his hemoglobin stabilizes and possibly after endoscopy is performed and appropriate. The Xarelto can be held for several days until it is safe to restart anticoagulation with only single antiplatelet agent. Otherwise, his current medications can be continued. He received 2 units of blood and he can receive more if hemoglobin becomes unstable. Otherwise, I do not have any further recommendations. Obviously, he will be monitored overnight and complete blood count (CBC) will be followed closely. I spoke about the patient with Dr. Allen and I also spoke with Dr. Culver, who is his regular assistant media buyer and will see the patient in follow up tomorrow. VAUGHN
[2019-12-18] MEDS: SUCRALFATE 1 GM TAB PO SCH ×2 (17:15→21:47)
[2019-12-18 17:28] LABS: HEMATOCRIT 31.2 % (42.0-52.0); HEMOGLOBIN 9.8 g/dl (13.5-17.5)
[2019-12-18] MEDS ORDERED: lisinopriL 20 MG TAB PO ONE (19:00)
[2019-12-18 21:01] LABS: HEMATOCRIT 27.8 % (42.0-52.0); HEMOGLOBIN 8.4 g/dl (13.5-17.5)
[2019-12-18] MEDS: GABAPENTIN 300 MG CAP PO SCH (21:47)
[2019-12-18] MEDS: ATORVASTATIN 20 MG TAB PO SCH (21:47)
[2019-12-18] MEDS: amLODIPine 5 MG TAB PO SCH (21:50)
[2019-12-19 02:00] VITALS: BP 126/55
[2019-12-19 03:11] LABS: HEMOGLOBIN 7.9 g/dl (13.5-17.5)
[2019-12-19 03:36] VITALS: O2SAT 100
[2019-12-19] MEDS: D5W/0.45% SODIUM CHLORIDE 1,000 ML IV SCH ×3 (03:57→16:30)
[2019-12-19 06:00] VITALS: BP 124/57
[2019-12-19 06:26] LABS: BLOOD UREA NITROGEN 24 MG/DL (7-18); CALCIUM LEVEL 7.9 MG/DL (8.8-10.2); CARBON DIOXIDE LEVEL 28 MEQ/L (21-32); CHLORIDE LEVEL 113 MEQ/L (98-107); CREATININE FOR GFR 0.93 MG/DL (0.70-1.30); GLOMERULAR FILTRATION RATE > 60.0 (>49); GLUCOSE, FASTING 127 MG/DL (70-100); POTASSIUM SERUM 4.4 MEQ/L (3.5-5.1); SODIUM LEVEL 143 MEQ/L (136-145)
[2019-12-19] MEDS: lisinopriL 20 MG TAB PO SCH (09:00)
[2019-12-19] MEDS: PANTOPRAZOLE 40MG VIAL (C9113 PER 1) IV SCH ×2 (09:08→21:47)
[2019-12-19] MEDS: SUCRALFATE 1 GM TAB PO SCH ×4 (09:13→21:47)
[2019-12-19] MEDS: PARoxetine 20 MG TAB PO SCH (09:13)
[2019-12-19] MEDS: METOPROLOL SUCC *XL* 12.5MG PER 1/2 TAB (TopROL *XL*) PO SCH (09:18)
[2019-12-19 09:42] LABS: BASO % 0.1 % (0.0-1.0); EOS % 0.2 % (0.0-3.0); HEMOGLOBIN 8.7 g/dl (13.5-17.5); LYMPH # 1.1 10^3/uL (1.5-5.0); LYMPH % 9.1 % (24.0-44.0); MEAN CORPUSCULAR HEMOGLOBIN 26.3 pg (27.0-33.0); MEAN CORPUSCULAR VOLUME 87.6 fl (80.0-96.0); MONO # 0.5 10^3/uL (0.0-0.8); MONO % 4.1 % (0.0-5.0); NEUTROPHILS # 10.1 10^3/uL (1.5-8.5); NEUTROPHILS % 85.7 % (36.0-66.0); PLATELET COUNT, AUTOMATED 269 10^3/uL (150-450); RED BLOOD COUNT 3.31 10^6/uL (4.30-6.10); WHITE BLOOD COUNT 11.8 10^3/uL (4.0-10.0)
[2019-12-19 09:47] LABS: CALCIUM LEVEL 8.3 MG/DL (8.8-10.2); CREATININE FOR GFR 1.29 MG/DL (0.70-1.30); GLOMERULAR FILTRATION RATE 58.8 (>49); POTASSIUM SERUM 4.1 MEQ/L (3.5-5.1)
[2019-12-19 10:00] VITALS: BP 128/59
--- NOTE | 2019-12-19 11:31 | IPN ---
DATE: 12/19/2019 SUBJECTIVE: The patient had EGD yesterday that revealed a bleeding ulcer. He has been feeling well though. Since his last bowel movement that was yesterday, he denies having additional one. Denies any nausea. There has been no vomiting. He also denies any chest pain or shortness of breath. OBJECTIVE: VITAL SIGNS: Blood pressure 124/57. Heart rate has been in the 60s and 70s atrial fibrillation. He is afebrile. Oxygen saturation 100% on 1 L of oxygen by nasal cannula. Weight has not been recorded yet this morning. GENERAL APPEARANCE: He is alert, oriented, and appropriate. NECK: Jugular venous pressure (JVP) does not look high. LUNGS: Clear with good air movement. HEART: Reveals irregularly irregular rhythm without gallop, rub, or murmur. There is a dressing over his pacemaker in the left subclavian pocket. ABDOMEN: Obese, but soft without obvious tenderness. EXTREMITIES: Free of edema. Peripheral pulses are palpable. NEUROLOGIC: He is intact. LABORATORY DATA: His hemoglobin has been monitored throughout day and night. Yesterday he received a total of three units of packed red blood cells. At 5:20 yesterday afternoon, his hemoglobin was 9.8 then dipped down to 8.4 and then 7.9 this morning. He is scheduled to have another one at 9 o'clock this morning. Basic metabolic panel is essentially normal. ASSESSMENT AND PLAN: The patient is a 69-year-old man who has chronic atrial fibrillation and underwent intervention to the right coronary artery with a drug-eluting stent three weeks ago. He was on a combination of aspirin, Plavix, and Xarelto, and presented with a syncopal event that likely was a combination of bradycardia and gastrointestinal (GI) bleeding. Esophagogastroduodenoscopy (EGD) yesterday revealed a bleeding ulcer. Currently, he has been off anticoagulation and off antiplatelet agents second day. I am really worried, because his coronary stent was very recently, but because his hemoglobin is still dropping, I do not believe that we can restart Plavix yet. But once the hemoglobin stabilizes, it will be imperative to restart his Plavix as soon as possible. I am hopeful that we will be able to do it later today and/or tomorrow, but if his hemoglobin continues to drop, then we will to have no choice but to wait. I expressed this concern to the patient. I also stressed to him that he cannot flush any bowel movements, and he has to report every single bowel movement that he has to the nursing staff. He is eager to go home because he has been feeling well, but I explained to him that this is still a very unstable situation, and we will have to monitor him for at least a few more days. I will be off as of this afternoon and Dr. Culver will be covering the service. VAUGHN
--- NOTE | 2019-12-19 12:47 | ROOR ---
Patient Name: Christian Villa Procedure Date: 12/18/2019 12:32 PM Date of : 1950 Age: 69 Room: Main OR Gender: Male Note Status: Finalized Procedure: Upper GI endoscopy Indications: Hematemesis, Melena Providers: Vicente Medina MD Referring MD: 2. Inpatient 2. Inpatient Requesting Provider: Medicines: Monitored Anesthesia Care Complications: No immediate complications. Procedure: Pre-Anesthesia Assessment: - Prior to the procedure, a History and Physical was performed, and patient medications and allergies were reviewed. The patient is competent. The risks and benefits of the procedure and the sedation options and risks were discussed with the patient. All questions were answered and informed consent was obtained. Patient identification and proposed procedure were verified by the physician, the nurse and the cellophane worker in the procedure room. Mental Status Examination: alert and oriented. Airway Examination: normal oropharyngeal airway and neck mobility. Respiratory Examination: clear to auscultation. CV Examination: irregularly irregular rate and rhythm. Prophylactic Antibiotics: The patient does not require prophylactic antibiotics. Prior Anticoagulants: The patient has taken Xarelto (rivaroxaban), last dose was 2 days prior to procedure. ASA Grade Assessment: IV - A patient with severe systemic disease that is a constant threat to life. After reviewing the risks and benefits, the patient was deemed in satisfactory condition to undergo the procedure. The anesthesia plan was to use monitored anesthesia care (MAC). Immediately prior to administration of medications, the patient was re-assessed for adequacy to receive sedatives. The heart rate, respiratory rate, oxygen saturations, blood pressure, adequacy of pulmonary ventilation, and response to care were monitored throughout the procedure. The physical status of the patient was re-assessed after the procedure. The Endoscope was introduced through the mouth, and advanced to the efferent jejunal loop. The upper GI endoscopy was performed with moderate difficulty due to excessive bleeding. Successful completion of the procedure was aided by General Endotracheal anesthesia used. The patient tolerated the procedure fairly well. Findings: There is no endoscopic evidence of bleeding, areas of erosion or mucosal abnormalities in the entire esophagus. Localized moderate inflammation with hemorrhage characterized by congestion (edema), erosions and deep ulcerations was found in the gastric fundus. To stop active bleeding, one hemostatic clip was successfully placed (MR conditional). Bleeding worsened with clip as the tissues are quite friable around the ulcer. Area was successfully injected with 10 mL of a 1:10,000 solution of epinephrine for hemostasis. Estimated blood loss: 30 mL requiring treatment with epinephrine. A single diminutive sessile polyp with bleeding was found in the gastric fundus. For hemostasis, one hemostatic clip was successfully placed (MR conditional). Bleeding had stopped at the end of the procedure. The examined jejunum was normal. No signs of inflammation, ulcers at the small bowel side of gastrojejunostomy Impression: - Chronic gastritis with hemorrhage. Clip (MR conditional) was placed. Injected. - A single gastric polyp. Clip (MR conditional) was placed. - Normal examined jejunum. - No specimens collected. Recommendation: - Admit the patient to hospital [facility] for ongoing care. - Monitor for recurrent bleeding, Area is quite friable and irritated. May need per diem interpreter help if with recurrenct bleeding as ulcerated/inflamed area not amenable to clip placement. Vicente Medina MD Vicente Medina MD 12/19/2019 12:47:20 PM Electronically signed by Vicente Medina MD Number of Addenda: 0 Note Initiated On: 12/18/2019 12:32 PM Estimated Blood Loss: Estimated blood loss: 30 mL.
--- NOTE | 2019-12-19 13:29 | IPNPDOC ---
Text Note Date of Service The patient was seen on 12/19/19. NOTE Subjective: Patient stated that he is doing fine today, he didn't have bowel movements yet Objective: GENERAL APPEARANCE: NAD HEENT: no scleral icterus, no JVD, EOMI CARDIOVASCULAR: S1S2, pacemaker in place LUNGS: CTA ABDOMEN: soft & not tender w palpitation MUSCULOSKELETAL: no cyanosis, no swelling INTEGUMENT: no generalized palor NEUROLOGICAL: cranial nerve function from 2-12 intact intact, follows commands, speech not dysarthric Patient is 69 years old male with past medical history of gastric bypass in 2009, atrial fibrillation, hypertension, hyperlipidemia, coronary artery diseases with stents placement 3 weeks ago was admitted to the hospital for pacemaker placement due to hemoglobin block and bradycardia of 30. Dr. Rolle performed procedure, after the procedure patient developed hematemesis. Patient was found to have hemoglobin of 8.9, hematocrit of 30.1. Patient was on the xarelto, aspirin and Plavix after stents placement. Problems (1) GI bleed Most likely secondary to triple therapy with xarelto, aspirin and Plavix H&H every 6 hours Total 3 units of blood transfusion. Hemoglobin stable Dr. Medina performed EGD on 01/02. Patient was found to have Chronic gastritis with hemorrhage. Clip (MR conditional) was placed. Injected. - A single gastric polyp. Clip (MR conditional) was placed. Hemoglobin stable Aspirin, xarelto and Plavix on hold Continue with PPI IV (2) Lumbar radiculopathy Continue home meds (3) AV block placed Pacemaker Heart rate under control for now Telemetry (4) Permanent atrial fibrillation Oral targeted anticoagulation on hold due to GI bleed Heart rate under control (5) Coronary artery disease Status post cardiac stent placement 3 weeks ago Continue statin Aspirin, Plavix on hold due to acute GI bleed Appreciate/agree with nurse emergency room consult Acute blood loss anemia Secondary to GI bleed See above VS,Donibone, I+O VS, Fishbone, I+O Laboratory Tests 12/18/19 17:21 12/18/19 20:45 12/19/19 03:05 12/19/19 05:29 12/19/19 09:06 Vital Signs Date Time Temp Pulse Resp B/P (MAP) Pulse Ox O2 Delivery O2 Flow Rate FiO2 12/19/19 10:00 97.5 60 18 128/59 (82) 100 Room Air 12/19/19 06:00 1.0 I&O- Last 24 Hours up to 6 AM 12/19/19 06:00 Intake Total 3380 ml Output Total 1650 ml Balance 1730 ml CHANDNI BELTRAN DO Dec 19, 2019 13:29
[2019-12-19 14:00] VITALS: BP 130/59
[2019-12-19 15:34] LABS: HEMATOCRIT 25.9 % (42.0-52.0); HEMOGLOBIN 7.8 g/dl (13.5-17.5)
[2019-12-19 20:23] LABS: HEMATOCRIT 28.2 % (42.0-52.0); HEMOGLOBIN 8.3 g/dl (13.5-17.5)
[2019-12-19] MEDS: ATORVASTATIN 20 MG TAB PO SCH (21:47)
[2019-12-19] MEDS: GABAPENTIN 300 MG CAP PO SCH (21:47)
[2019-12-19] MEDS: amLODIPine 5 MG TAB PO SCH (21:48)
[2019-12-19 22:00] VITALS: BP 129/56
[2019-12-20] VITALS (15 sets, daily range): BP systolic 118–178; BP diastolic 53–154; O2SAT 96–98
--- NOTE | 2019-12-20 01:50 | ECGEPIP ---
[facility] Test Date: 2019-12-18 Pat Name: BRUNO CADE Department: Room: [place] [address] Gender: Male Payroll And Benefits Specialist: : 1950 Requested By: Doroteo Rolle Order Number: [id number] Reading MD: Jl Worley Measurements Intervals [place] Rate: 65 P: RI: 0 QRS: -3 QRSD: 103 T: -17 QT: 399 QTc: 415 Interpretive Statements ATRIAL FIBRILLATION Low QRS complex voltage in the limb leads Similar to tracing done 12-17-19 but with evidence of two paced beats Electronically Signed on 12-20-2019 1:49:45 EST by Jl Worley
[2019-12-20 02:37] LABS: HEMATOCRIT 24.1 % (42.0-52.0); HEMOGLOBIN 7.2 g/dl (13.5-17.5)
[2019-12-20] MEDS: D5W/0.45% SODIUM CHLORIDE 1,000 ML IV SCH ×2 (05:15→21:34)
[2019-12-20 05:40] LABS: HEMATOCRIT 25.6 % (42.0-52.0); HEMOGLOBIN 7.7 g/dl (13.5-17.5); MEAN CORPUSCULAR HEMOGLOBIN 26.6 pg (27.0-33.0); MEAN CORPUSCULAR HGB CONC 30.1 g/dl (32.0-36.5); MEAN CORPUSCULAR VOLUME 88.6 fl (80.0-96.0); PLATELET COUNT, AUTOMATED 225 10^3/uL (150-450); RED BLOOD COUNT 2.89 10^6/uL (4.30-6.10)
[2019-12-20 06:00] LABS: BLOOD UREA NITROGEN 27 MG/DL (7-18); CALCIUM LEVEL 7.9 MG/DL (8.8-10.2); CARBON DIOXIDE LEVEL 26 MEQ/L (21-32); CHLORIDE LEVEL 114 MEQ/L (98-107); CREATININE FOR GFR 1.12 MG/DL (0.70-1.30); GLOMERULAR FILTRATION RATE > 60.0 (>49); GLUCOSE, FASTING 109 MG/DL (70-100); MAGNESIUM LEVEL 2.1 MG/DL (1.8-2.4); POTASSIUM SERUM 4.3 MEQ/L (3.5-5.1); SODIUM LEVEL 144 MEQ/L (136-145)
[2019-12-20 08:22] LABS: HEMATOCRIT 28.3 % (42.0-52.0); HEMOGLOBIN 8.4 g/dl (13.5-17.5)
[2019-12-20] MEDS ORDERED: ISOVUE-300 61% 50ML VIAL As Ordered ONE ×3 (09:05→10:24)
[2019-12-20] MEDS ORDERED: LIDOCAINE 1% MDV 20ML VIAL As Ordered ONE (09:06)
[2019-12-20] MEDS ORDERED: fentaNYL 100 MCG/2 ML INJECTION (J3010) As Ordered ONE (09:36)
[2019-12-20] MEDS: SUCRALFATE 1 GM TAB PO SCH ×4 (10:47→21:32)
--- NOTE | 2019-12-20 10:55 | IPNPDOC ---
Text Note Date of Service The patient was seen on 12/20/19. NOTE Patient has another bloody bowel movement last night and his hemoglobin and h ematocrit dropped this morning although he remains hemodynamically stable. Patient denies any chest pain, shortness of breath, abdominal discomfort. His anticoagulation remains on hold. I have spoken to our interventional radiologist for possible angiogram and embolization of the bleeding vessel to the gastric pouch ulcer. My concern at this time is that he has a fresh cardiac stent and we should not be holding his antiplatelets for so long or else will clot. If we are not able to stop the rodríguez gema pouch bleeding, suggest transfer to higher level center that he may need revision of his gastric pouch from his gastric bypass to resect that the ulcer or a more advanced endoscopic skills for stopping the ulcer bleeding. VS,Fishbone, I+O VS, Fishbone, I+O Laboratory Tests 12/19/19 14:59 12/19/19 20:00 12/20/19 02:28 12/20/19 05:24 12/20/19 07:44 Vital Signs Date Time Temp Pulse Resp B/P (MAP) Pulse Ox O2 Delivery O2 Flow Rate FiO2 12/20/19 10:30 61 18 100 Nasal Cannula 2 12/20/19 09:23 97.8 12/20/19 06:00 149/75 (99) I&O- Last 24 Hours up to 6 AM 12/20/19 06:00 Intake Total 3020 ml Output Total 1700 ml Balance 1320 ml BETH HURLEY MD Dec 20, 2019 10:55
--- NOTE | 2019-12-20 11:38 | IPNPDOC ---
Text Note Date of Service The patient was seen on 12/20/19. NOTE Subjective: Patient developed bowel movement with blood. Patient denies any f ever, chills, chest pain or palpitations Objective: GENERAL APPEARANCE: NAD HEENT: no scleral icterus, no JVD, EOMI CARDIOVASCULAR: S1S2, pacemaker in place LUNGS: CTA ABDOMEN: soft & not tender w palpitation MUSCULOSKELETAL: no cyanosis, no swelling INTEGUMENT: no generalized palor NEUROLOGICAL: cranial nerve function from 2-12 intact intact, follows commands, speech not dysarthric Patient is 69 years old male with past medical history of gastric bypass in 2009, atrial fibrillation, hypertension, hyperlipidemia, coronary artery diseases with stents placement 3 weeks ago was admitted to the hospital for pacemaker placement due to hemoglobin block and bradycardia of 30. Dr. Rolle performed procedure, after the procedure patient developed hematemesis. Patient was found to have hemoglobin of 8.9, hematocrit of 30.1. Patient was on the xarelto, aspirin and Plavix after stents placement. Problems (1) GI bleed Most likely secondary to triple therapy with xarelto, aspirin and Plavix H&H every [address] Medina performed EGD on 01/02. Patient was found to have Chronic gastritis with hemorrhage. Clip (MR conditional) was placed. Injected. - A single gastric polyp. Clip (MR conditional) was placed. Hemoglobin stable Aspirin, xarelto and Plavix on hold Today patient developed bloody bowel movement. IR gastric arteriogram with possible embolization Continue with PPI IV (2) Lumbar radiculopathy Continue home meds (3) AV block placed Pacemaker Heart rate under control for now Telemetry (4) Permanent atrial fibrillation Oral targeted anticoagulation on hold due to GI bleed Heart rate under control (5) Coronary artery disease Status post cardiac stent placement 3 weeks ago Continue statin Aspirin, Plavix on hold due to acute GI bleed Appreciate/agree with chiller tender consult Acute blood loss anemia Secondary to GI bleed See above VS,Judithe, I+O VS, Judithe, I+O Laboratory Tests 12/19/19 14:59 12/19/19 20:00 12/20/19 02:28 12/20/19 05:24 12/20/19 07:44 Vital Signs Date Time Temp Pulse Resp B/P (MAP) Pulse Ox O2 Delivery O2 Flow Rate FiO2 12/20/19 11:05 63 18 99 Nasal Cannula 2 12/20/19 09:23 97.8 12/20/19 06:00 149/75 (99) I&O- Last 24 Hours up to 6 AM 12/20/19 06:00 Intake Total 3020 ml Output Total 1700 ml Balance 1320 ml CHANDNI BELTRAN DO Dec 20, 2019 11:38
--- NOTE | 2019-12-20 12:09 | POST-OPPD ---
Postoperative Procedure Note Date Of Procedure: Dec 20, 2019 Time Of Procedure: 12:08 PREOPERATIVE DIAGNOSIS:gastric ulcer. GI bleed refractory to clip. POSTOPERATIVE DIAGNOSIS: same FINDINGS: left gastric artery arises off celiac artery. Replaced left hepatic artery arises off left gastric artery. PROCEDURE: successful left gastric artery embolization with sparing of left hepatic artery. SURGEON: Corie ANESTHESIA: local ESTIMATED BLOOD LOSS: < 5 ml COMPLICATIONS: none POSTOPERATIVE CONDITION: stable NERIS BERMUDEZ MD Dec 20, 2019 12:09
[2019-12-20] MEDS: PANTOPRAZOLE 40MG VIAL (C9113 PER 1) IV SCH ×2 (13:43→21:32)
[2019-12-20] MEDS: PARoxetine 20 MG TAB PO SCH (13:43)
[2019-12-20] MEDS: lisinopriL 20 MG TAB PO SCH (13:44)
[2019-12-20] MEDS: METOPROLOL SUCC *XL* 12.5MG PER 1/2 TAB (TopROL *XL*) PO SCH (13:54)
[2019-12-20 14:24] LABS: HEMATOCRIT 25.8 % (42.0-52.0); HEMOGLOBIN 7.8 g/dl (13.5-17.5)
[2019-12-20] MEDS ORDERED: ACETAMINOPHEN TAB 650MG DOSE (2X325MG) PO ONE (17:30)
[2019-12-20] MEDS: GABAPENTIN 300 MG CAP PO SCH (21:32)
[2019-12-20] MEDS: ATORVASTATIN 20 MG TAB PO SCH (21:32)
[2019-12-20] MEDS: amLODIPine 5 MG TAB PO SCH (21:33)
[2019-12-21 06:00] VITALS: BP 138/72
[2019-12-21 06:50] LABS: HEMATOCRIT 28.8 % (42.0-52.0); HEMOGLOBIN 8.9 g/dl (13.5-17.5); MEAN CORPUSCULAR HEMOGLOBIN 27.4 pg (27.0-33.0); MEAN CORPUSCULAR HGB CONC 30.9 g/dl (32.0-36.5); MEAN CORPUSCULAR VOLUME 88.6 fl (80.0-96.0); PLATELET COUNT, AUTOMATED 226 10^3/uL (150-450); RED BLOOD COUNT 3.25 10^6/uL (4.30-6.10); WHITE BLOOD COUNT 9.4 10^3/uL (4.0-10.0)
[2019-12-21 07:11] LABS: BLOOD UREA NITROGEN 19 MG/DL (7-18); CALCIUM LEVEL 8.3 MG/DL (8.8-10.2); CARBON DIOXIDE LEVEL 27 MEQ/L (21-32); CHLORIDE LEVEL 114 MEQ/L (98-107); CREATININE FOR GFR 0.82 MG/DL (0.70-1.30); GLOMERULAR FILTRATION RATE > 60.0 (>49); GLUCOSE, FASTING 104 MG/DL (70-100); MAGNESIUM LEVEL 1.9 MG/DL (1.8-2.4); POTASSIUM SERUM 4.1 MEQ/L (3.5-5.1); SODIUM LEVEL 146 MEQ/L (136-145)
[2019-12-21] MEDS: PARoxetine 20 MG TAB PO SCH (09:36)
[2019-12-21] MEDS: SUCRALFATE 1 GM TAB PO SCH ×4 (09:36→21:45)
[2019-12-21] MEDS: PANTOPRAZOLE 40MG VIAL (C9113 PER 1) IV SCH ×2 (09:36→21:46)
[2019-12-21] MEDS: lisinopriL 20 MG TAB PO SCH (09:38)
[2019-12-21] MEDS: D5W/0.45% SODIUM CHLORIDE 1,000 ML IV SCH (10:06)
[2019-12-21] MEDS: METOPROLOL SUCC *XL* 12.5MG PER 1/2 TAB (TopROL *XL*) PO SCH (10:06)
[2019-12-21 14:00] VITALS: BP 117/58
--- NOTE | 2019-12-21 14:54 | IPNPDOC ---
Text Note Date of Service The patient was seen on 12/21/19. NOTE Subjective: No any acute events overnight. Patient developed few bowel movements with black stool. Objective: GENERAL APPEARANCE: NAD HEENT: no scleral icterus, no JVD, EOMI CARDIOVASCULAR: S1S2, pacemaker in place LUNGS: CTA ABDOMEN: soft & not tender w palpitation MUSCULOSKELETAL: no cyanosis, no swelling INTEGUMENT: no generalized palor NEUROLOGICAL: cranial nerve function from 2-12 intact intact, follows commands, speech not dysarthric Patient is 69 years old male with past medical history of gastric bypass in 2009, atrial fibrillation, hypertension, hyperlipidemia, coronary artery diseases with stents placement 3 weeks ago was admitted to the hospital for pacemaker placement due to hemoglobin block and bradycardia of 30. Dr. Rolle performed procedure, after the procedure patient developed hematemesis. Patient was found to have hemoglobin of 8.9, hematocrit of 30.1. Patient was on the xarelto, aspirin and Plavix after stents placement. Problems (1) GI bleed Most likely secondary to triple therapy with xarelto, aspirin and Plavix H&H every [address] Medina performed EGD on 01/02. Patient was found to have Chronic gastritis with hemorrhage. Clip (MR conditional) was placed. Injected. - A single gastric polyp. Clip (MR conditional) was placed. Hemoglobin stable IR gastric arteriogram with embolization was done on 12/20/19 Hemoglobin stable and improved I talked Dr. Culver, he recommended to start Plavix Continue with PPI IV (2) Lumbar radiculopathy Continue home meds (3) AV block placed Pacemaker Heart rate under control for now Telemetry (4) Permanent atrial fibrillation Oral targeted anticoagulation on hold due to GI bleed Heart rate under control (5) Coronary artery disease Status post cardiac stent placement 3 weeks ago Continue statin Plavix restarted Acute blood loss anemia Secondary to GI bleed See above VS,Fishbone, I+O VS, Fishbone, I+O Laboratory Tests 12/21/19 06:10 Vital Signs Date Time Temp Pulse Resp B/P (MAP) Pulse Ox O2 Delivery O2 Flow Rate FiO2 12/21/19 14:00 97.8 70 20 117/58 (77) 100 Room Air 12/20/19 12:06 2 I&O- Last 24 Hours up to 6 AM 12/21/19 05:59 Intake Total 1750 ml Output Total 1300 ml Balance 450 ml CHANDNI BELTRAN DO Dec 21, 2019 14:54
[2019-12-21] MEDS: CLOPIDOGREL 75 MG TAB PO SCH (16:46)
--- NOTE | 2019-12-21 16:47 | ECGEPIP ---
[facility] - ED Test Date: 2019-12-17 Pat Name: BRUNO CADE Department: Room: [place] [address] Gender: Male Range Rider: AIDAN : 1950 Requested By: Doroteo Rolle Order Number: [id number] Reading MD: Elsa Alvarez Measurements Intervals [place] Rate: 70 P: [place]: 0 QRS: -16 QRSD: 88 T: 1 QT: 375 QTc: 405 Interpretive Statements ATRIAL FIBRILLATION baseline artifact may affect interpretation ABNORMAL RHYTHM ECG INCREASED RATE 12/17/19 Electronically Signed on 12-21-2019 16:47:13 EST by Elsa Alvarez
[2019-12-21 17:00] VITALS: O2SAT 99
[2019-12-21] MEDS: ATORVASTATIN 20 MG TAB PO SCH (21:45)
[2019-12-21] MEDS: GABAPENTIN 300 MG CAP PO SCH (21:46)
[2019-12-21] MEDS: amLODIPine 5 MG TAB PO SCH (21:48)
[2019-12-21 22:00] VITALS: BP 122/58; O2SAT 99
[2019-12-22 06:00] VITALS: BP 152/71
[2019-12-22 06:57] LABS: HEMATOCRIT 28.4 % (42.0-52.0); HEMOGLOBIN 8.4 g/dl (13.5-17.5); MEAN CORPUSCULAR HEMOGLOBIN 26.7 pg (27.0-33.0); MEAN CORPUSCULAR HGB CONC 29.6 g/dl (32.0-36.5); MEAN CORPUSCULAR VOLUME 90.2 fl (80.0-96.0); PLATELET COUNT, AUTOMATED 235 10^3/uL (150-450); RED BLOOD COUNT 3.15 10^6/uL (4.30-6.10); WHITE BLOOD COUNT 7.5 10^3/uL (4.0-10.0)
[2019-12-22 07:11] LABS: BLOOD UREA NITROGEN 15 MG/DL (7-18); CALCIUM LEVEL 8.5 MG/DL (8.8-10.2); CARBON DIOXIDE LEVEL 28 MEQ/L (21-32); CHLORIDE LEVEL 112 MEQ/L (98-107); CREATININE FOR GFR 0.89 MG/DL (0.70-1.30); GLOMERULAR FILTRATION RATE > 60.0 (>49); GLUCOSE, FASTING 92 MG/DL (70-100); MAGNESIUM LEVEL 1.9 MG/DL (1.8-2.4); POTASSIUM SERUM 4.2 MEQ/L (3.5-5.1); SODIUM LEVEL 145 MEQ/L (136-145)
[2019-12-22] MEDS: PANTOPRAZOLE 40MG VIAL (C9113 PER 1) IV SCH ×2 (10:00→22:00)
[2019-12-22] MEDS: SUCRALFATE 1 GM TAB PO SCH ×4 (10:01→21:59)
[2019-12-22] MEDS: lisinopriL 20 MG TAB PO SCH (10:01)
[2019-12-22] MEDS: PARoxetine 20 MG TAB PO SCH (10:01)
[2019-12-22] MEDS: CLOPIDOGREL 75 MG TAB PO SCH (10:01)
[2019-12-22] MEDS: METOPROLOL SUCC *XL* 12.5MG PER 1/2 TAB (TopROL *XL*) PO SCH (10:03)
[2019-12-22 11:45] VITALS: O2SAT 97
--- NOTE | 2019-12-22 12:15 | IPNPDOC ---
Text Note Date of Service The patient was seen on 12/22/19. NOTE Subjective: No any acute events overnight. Patient did not have any bowel mov ements. No any signs of bleeding Objective: GENERAL APPEARANCE: NAD HEENT: no scleral icterus, no JVD, EOMI CARDIOVASCULAR: S1S2, pacemaker in place LUNGS: CTA ABDOMEN: soft & not tender w palpitation MUSCULOSKELETAL: no cyanosis, no swelling INTEGUMENT: no generalized palor NEUROLOGICAL: cranial nerve function from 2-12 intact intact, follows commands, speech not dysarthric Patient is 69 years old male with past medical history of gastric bypass in 2009, atrial fibrillation, hypertension, hyperlipidemia, coronary artery diseases with stents placement 3 weeks ago was admitted to the hospital for pacemaker placement due to hemoglobin block and bradycardia of 30. Dr. Rolle performed procedure, after the procedure patient developed hematemesis. Patient was found to have hemoglobin of 8.9, hematocrit of 30.1. Patient was on the xarelto, aspirin and Plavix after stents placement. Problems (1) GI bleed Most likely secondary to triple therapy with xarelto, aspirin and Plavix H&H every [address] Medina performed EGD on 01/02. Patient was found to have Chronic gastritis with hemorrhage. Clip (MR conditional) was placed. Injected. - A single gastric polyp. Clip (MR conditional) was placed. Hemoglobin stable IR gastric arteriogram with embolization was done on 12/20/[address] Culver, he recommended to start Plavix Continue with PPI IV (2) Lumbar radiculopathy Continue home meds (3) AV block placed Pacemaker Heart rate under control for now Telemetry (4) Permanent atrial fibrillation Oral targeted anticoagulation on hold due to GI bleed Heart rate under control (5) Coronary artery disease Status post cardiac stent placement 3 weeks ago Continue statin Plavix restarted Acute blood loss anemia Secondary to GI bleed See above VS,Fishbone, I+O VS, Fishbone, I+O Laboratory Tests 12/22/19 05:38 Vital Signs Date Time Temp Pulse Resp B/P (MAP) Pulse Ox O2 Delivery O2 Flow Rate FiO2 12/22/19 10:03 65 12/22/19 10:01 157/71 12/22/19 06:00 97.8 18 99 Room Air 12/20/19 12:06 2 I&O- Last 24 Hours up to 6 AM 12/22/19 06:00 Intake Total 1200 ml Output Total 1375 ml Balance -175 ml CHANDNI BELTRAN DO Dec 22, 2019 12:15
[2019-12-22 13:49] VITALS: BP 168/56
[2019-12-22 15:32] VITALS: BP 138/70
[2019-12-22] MEDS: ATORVASTATIN 20 MG TAB PO SCH (21:59)
[2019-12-22 22:00] VITALS: BP 167/56; O2SAT 100
[2019-12-22] MEDS: amLODIPine 5 MG TAB PO SCH (22:00)
[2019-12-22] MEDS: GABAPENTIN 300 MG CAP PO SCH (22:00)
[2019-12-23 00:15] VITALS: BP 169/74
[2019-12-23] MEDS ORDERED: amLODIPine 5 MG TAB PO ONE (00:30)
[2019-12-23 06:00] VITALS: BP 153/74
[2019-12-23 06:17] LABS: HEMATOCRIT 27.4 % (42.0-52.0); HEMOGLOBIN 8.3 g/dl (13.5-17.5); MEAN CORPUSCULAR HEMOGLOBIN 26.9 pg (27.0-33.0); MEAN CORPUSCULAR HGB CONC 30.3 g/dl (32.0-36.5); MEAN CORPUSCULAR VOLUME 88.7 fl (80.0-96.0); PLATELET COUNT, AUTOMATED 235 10^3/uL (150-450); RED BLOOD COUNT 3.09 10^6/uL (4.30-6.10); WHITE BLOOD COUNT 6.9 10^3/uL (4.0-10.0)
[2019-12-23 06:43] LABS: BLOOD UREA NITROGEN 17 MG/DL (7-18); CARBON DIOXIDE LEVEL 30 MEQ/L (21-32); CHLORIDE LEVEL 110 MEQ/L (98-107); CREATININE FOR GFR 0.84 MG/DL (0.70-1.30); GLOMERULAR FILTRATION RATE > 60.0 (>49); GLUCOSE, FASTING 92 MG/DL (70-100); POTASSIUM SERUM 4.1 MEQ/L (3.5-5.1); SODIUM LEVEL 145 MEQ/L (136-145)
[2019-12-23 06:44] LABS: CALCIUM LEVEL 8.6 MG/DL (8.8-10.2)
[2019-12-23] MEDS: amLODIPine 5 MG TAB PO SCH ×2 (07:10→21:40)
[2019-12-23 09:30] VITALS: O2SAT 98
[2019-12-23] MEDS: PANTOPRAZOLE 40MG VIAL (C9113 PER 1) IV SCH ×2 (09:54→21:40)
[2019-12-23] MEDS: PARoxetine 20 MG TAB PO SCH (09:54)
[2019-12-23] MEDS: CLOPIDOGREL 75 MG TAB PO SCH (09:55)
[2019-12-23] MEDS: SUCRALFATE 1 GM TAB PO SCH ×4 (09:55→21:39)
[2019-12-23] MEDS: METOPROLOL SUCC *XL* 25MG TAB (TopROL *XL*) PO SCH (09:57)
[2019-12-23] MEDS: lisinopriL 20 MG TAB PO SCH (09:57)
--- NOTE | 2019-12-23 10:08 | IPN ---
DATE: 12/18/2019 SUBJECTIVE: Mr. Christian Villa was seen in the evening of 12/18/2019. He was supine in bed in no acute distress and his nurse was at bedside. He denies any complaint of chest pain, shortness of breath, palpitations, orthopnea, or paroxysmal nocturnal dyspnea (PND). He denies any abdominal pain. He was initially admitted on 12/17/2019, with symptomatic sick sinus syndrome. He was markedly bradycardic. He had a permanent pacemaker implanted by Dr. Rolle on 12/17/2019, without any problems, but then developed gastrointestinal (GI) bleed. He was transfused three units of packed red blood cells and had gastroscopy done on 12/18/2019. According to the nurse, earlier today, he had one glenn stool. His gastroscopy revealed chronic gastritis with bleed and clip was placed. A simple gastric polyp was also noted. Otherwise, unremarkable. Prior to coming to the hospital, the patient was on aspirin, Plavix, and Xarelto. He recently had a drug-eluting stent implanted in the month of November to the right coronary artery (RCA). The left ventricular ejection fraction (LVEF) was normal. The plan was to stop the aspirin within four weeks. He has been on Xarelto for his underlying atrial fibrillation. OBJECTIVE: GENERAL APPEARANCE: The patient is alert and oriented, in no acute distress. VITAL SIGNS: Stable. Blood pressure when I saw him was noted to be 162/72 with a pulse of 75, respirations 18-20, and his maximum temperature was 98.3 degrees Fahrenheit with O2 saturation of 97% on 1 L nasal cannula. HEAD: Atraumatic. NECK: Supple without jugular venous distention (JVD). LUNGS: Did not reveal any wheezing or crackles. HEART: Revealed irregular heart sounds without gallops. The point of maximal impulse (PMI) is not displaced. There is no rub. ABDOMEN: Soft, obese, and nontender. EXTREMITIES: Revealed no pedal edema. NEUROLOGIC: Negative for focal deficits. LABORATORY DATA: CBC done earlier today revealed a hemoglobin of 9.8 with a hematocrit of 31.2. BMP on 12/18/2019, revealed a sodium of 143, potassium 4.1, chloride 112, CO2 of 26, BUN 32, creatinine 0.8, GFR more than 60, fasting glucose 90, calcium 8.1, and magnesium 2.0. ASSESSMENT/PLAN: Mr. Christian Villa appears to be stable, status post permanent pacemaker implantation for symptomatic bradycardia and status post transfusion of packed red blood cells for upper gastrointestinal (GI) bleed. He is planning to have blood work done tomorrow and if it remains stable, we will start him on his Plavix and we will hold on the aspirin for now, as well as the Xarelto, providing that there is no recurrence of bleeding. Otherwise, he appears to be stable. We will monitor closely his input and output to prevent congestive heart failure due to left ventricular diastolic dysfunction. I have decreased his IV fluids from 100 mL/hour to 80 mL/hour. He is planning to have his BMP done in the a.m. of 12/19/2019. VAUGHN
--- NOTE | 2019-12-23 10:29 | IRPN ---
[facility] IR Progress Note IR Progress Note DATE: Dec 23, 2019 FOLLOW-UP: Day 4 status post gastric artery embolization for gastric ulcer bleeding refractory to endoscopic clipping. Patient now has brown stools. No further melena. No hematemesis. No dizziness. Patient eating drinking well. No pain. Patient moving around. ON EXAMINATION: Vital signs temperature 90.8 pulse 61 blood pressure 153/74 sats 99 on room air. Abdomen: nondistended. Soft nontender. Right groin access site, soft. No palpable mass. No significant hematoma. Labs: 12/23/2019 hemoglobin 8.3 stable WBC 6.9 hematocrit 27.4 platelets 235 sodium 145 potassium 4.1 BUN 17 creatinine 0.84 GFR greater than 60 Medication: Plavix received yesterday IMPRESSION: 69-year-old male with history of gastric bypass and recent gastric ulcer refractory bleeding despite endoscopic clipping. Patient's bleeding has stopped post IR embolization. Patient will be followed up in clinic in 2 weeks. Thank you for this referral Allergies Coded Allergies: No Known Allergies (Unverified , 12/17/19) Current Medications Current Medications Medications (Trade) Dose Ordered Sig/Mack Route PRN Reason Start Time Stop Time Status Last Admin Dose Admin Acetaminophen (Tylenol Tab) 650 mg Q4HP PRN PO MILD PAIN or TEMP > 101 12/17/19 16:15 Amlodipine Besylate (Norvasc) 5 mg BID PO 12/23/19 07:00 12/23/19 07:10 Amlodipine Besylate (Norvasc) 5 mg QHS PO 12/18/19 21:00 12/23/19 06:51 DC 12/22/19 22:00 Atorvastatin Calcium (Lipitor) 40 mg QHS PO 12/17/19 21:00 12/22/19 21:59 Cefazolin Sodium 1 gm/Dextrose 50 ml @ 100 mls/hr Q8H IV 12/17/19 23:00 12/18/19 15:29 DC 12/18/19 15:35 Clopidogrel Bisulfate (PLAVix) 75 mg DAILY PO 12/21/19 09:00 12/23/19 09:55 Dextrose/Sodium Chloride 1,000 ml @ 80 mls/hr [id number] IV 12/18/19 19:00 12/21/19 12:25 DC 12/21/19 10:06 Dextrose/Sodium Chloride 1,000 ml @ 100 mls/hr Q10H IV 12/18/19 08:45 12/18/19 18:59 DC 12/18/19 18:56 Dobutamine HCl 634141 mcg/IV Miscellaneous Supplies 250 ml @ 17.16 mls/ hr [id number] IV 12/17/19 11:45 12/17/19 16:46 DC 12/17/19 11:42 Fentanyl Citrate (Sublimaze) 25 mcg Q5MP PRN IV PAIN LEVEL 5-10 12/17/19 17:30 12/17/19 18:30 DC Fentanyl Citrate (Sublimaze) 25 mcg Q5MP PRN IV PAIN LEVEL 5-10 12/18/19 16:00 12/18/19 17:00 DC Gabapentin (Neurontin) 300 mg DAILY PRN PO PAIN 12/17/19 17:45 Gabapentin (Neurontin) 300 mg QHS PO 12/17/19 21:00 12/22/19 22:00 Home Med (Med Rec Complete!) ASDIRECTED XX 12/17/19 12:00 12/17/19 12:01 DC Ketorolac Tromethamine (ToRADol) 30 mg Q6HP PRN IV MILD/MODERATE PAIN (PS 1-7) 12/17/19 16:15 12/17/19 17:04 DC Lactated Ringer's 500 ml @ 999 mls/hr Q31M IV 12/17/19 17:00 12/17/19 19:44 DC Lactated Ringer's 1,000 ml @ 100 mls/hr Q10H IV 12/18/19 16:00 12/18/19 17:00 DC Lactated Ringer's 1,000 ml @ 999 mls/hr Q1H1M IV 12/17/19 11:45 12/17/19 16:51 DC 12/17/19 11:43 Lisinopril (Prinivil) 20 mg DAILY PO 12/19/19 09:00 12/23/19 09:57 Metoclopramide HCl (REGLAN INJection) 10 mg Q6HP PRN IV NAUSEA OR VOMITING 12/18/19 16:00 12/18/19 17:00 DC Metoprolol Succinate (TopROL XL) 12.5 mg QAM PO 12/19/19 09:00 12/22/19 16:38 DC 12/22/19 10:03 Metoprolol Succinate (TopROL XL) 25 mg QAM PO 12/23/19 09:00 12/23/19 09:57 Nitroglycerin (Nitrostat (1/ 150)) 0.4 mg ASDIRECTED PRN SL CHEST PAIN 12/17/19 18:00 Ondansetron HCl (ZOFRAN INJection) 4 mg Q4HP PRN IV NAUSEA OR VOMITING 12/17/19 17:30 12/17/19 18:30 DC 12/17/19 17:20 Ondansetron HCl (ZOFRAN INJection) 4 mg Q4HP PRN IV NAUSEA OR VOMITING 12/18/19 16:00 12/18/19 17:00 DC Pantoprazole Sodium (Protonix) 40 mg BID IV 12/17/19 21:00 12/23/19 09:54 Paroxetine HCl (PAXil) 20 mg DAILY PO 12/18/19 09:00 12/23/19 09:54 Sodium Chloride 1,000 ml @ 100 mls/hr Q10H IV 12/17/19 17:27 12/18/19 08:39 DC 12/18/19 05:09 Sucralfate (Carafate) 1 gm QID PO 12/18/19 17:00 12/23/19 09:55 VS,Felix, I+O VS, Felix, I+O Laboratory Tests 12/23/19 05:42 Vital Signs Date Time Temp Pulse Resp B/P (MAP) Pulse Ox O2 Delivery O2 Flow Rate FiO2 12/23/19 09:57 65 12/23/19 09:57 152/71 12/23/19 06:00 98.0 20 99 Room Air 12/20/19 12:06 2 I&O- Last 24 Hours up to 6 AM 12/23/19 06:00 Intake Total 1220 ml Output Total 750 ml Balance 470 ml NERIS BERMUDEZ MD Dec 23, 2019 10:29
--- NOTE | 2019-12-23 12:16 | POST-OPPD ---
Postoperative Procedure Note Date Of Procedure: Dec 20, 2019 Time Of Procedure: 16:00 FULL PROCEDURE REPORT. IR Celiac artery catheterization and angiography. IR Superselective left gastric artery catheterization and angiography. Clinical Information:Gastric ulcer with bleeding and melena refractory to endoscopic clipping with ongoing transfusion requirements. Physician: Dr. Fontenot. Procedure: The patient was advised of the benefits, risks, and alternatives of the procedure and informed consent was obtained. A time out was performed with verification of the patient's name, MRN, site of procedure, and type of procedure to be performed. The patient was positioned in the supine position on the angiographic table. The site was prepped and draped in the usual sterile fashion. Moderate sedation was not performed. The physician spent 120 minutes of continuous [id number] time with the patient. A real time trader radiograph reveals endoscopically placed clip projecting over the GE junction. Lidocaine was used for local anesthesia. The right common femoral artery was accessed, under ultrasound guidance with a microintroducer set. A short 0.018" Ventura wire was inserted and the needle was exchanged for a 4 Fr microintroducer sheath. The guidewire and dilator were removed and a 0.035" Bentson wire was placed into abdominal aorta. A 5 Fr sheath was placed over the wire. A SOS catheter was then advanced over the wire under fluoroscopic guidance and used to catheterize the celiac artery. A celiac arteriogram was performed and this demonstrates patent celiac artery branching into common hepatic and splenic artery. Post gastroduodenal artery, the proper hepatic artery gives rise to main right hepatic artery. Patent left gastric artery arising off the celiac artery coursing towards the stomach. The catheter in conjunction with the wire was used to catheterize the left gastric artery. 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 Right gastric artery arising off the base of the left hepatic artery. Left gastric artery coursing to the region of the clips. A microcatheter and microwire were inserted through the diagnostic catheter and used to superselectively catheterize the left gastric artery. An arteriogram was performed and this demonstrates the origin of the replaced left hepatic artery coursing to the left hepatic lobe. The main branch of the left gastric artery is seen coursing to the region of the gastric clip. Catheter and wire were then used to superselectively catheterize the second-orde r branch of the left gastric artery sparing the replaced left hepatic artery. An arteriogram was performed and this demonstrates successful catheterization of the second order branch of the left gastric artery coursing to this endoscopically placed clip with sparing of the origin of the replaced right hepatic artery. 2 mm coil was then placed in this branch of the left gastric artery. The catheter was retracted back to the proximal left gastric artery and a post embolization follow-up arteriogram was performed and this demonstrates successful occlusion of this branch of the left gastric artery. There is preserved flow in the replaced left hepatic artery. The microcatheter in conjunction with the wire was used to superselectively catheterize the right gastric artery. An arteriogram was performed and this demonstrates a collateral from the proximal right gastric artery supplying the region of the endoscopic clip. Under fluoroscopy guidance, Gelfoam embolization was performed through this collateral branches. A 2 mm coil was placed in this collateral branch. Injection of contrast confirmed adequate embolization of this collateral branch. Catheter, wire and sheath were removed, pressure held and hemostasis achieved. A sterile dressing was applied to the site. The patient tolerated the procedure well and was returned to the PRU in stable condition. EBL: < 5 mL. Complications:None. Impression: 1. 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 2. Successful left gastric artery embolization with sparing of replaced left hepatic artery. 3. Patient to follow-up in IR clinic in 2 weeks. Thank you for this referral. Cc NERIS Almaguer MD Dec 23, 2019 12:16
[2019-12-23 14:00] VITALS: BP 152/71
--- NOTE | 2019-12-23 14:42 | IPN ---
DATE: 12/21/2019 SUBJECTIVE: Mr. Christian Villa was seen yesterday in the evening and also this morning. He was laying supine in bed, in no acute distress. He was initially admitted with high-grade heart block, symptomatic with near syncope and had a permanent pacemaker implanted on 12/17/2019. While he was better, he developed a lower GI bleed and had gastroscopy done that revealed chronic gastritis with bleeding and clip was placed, but he continues to have bleeding and he was brought back to the OR yesterday with Dr. Fontenot and the patient had embolization done of the left gastric artery. He was transfused another unit of packed red blood cells on 12/21/2019. He denies any chest pain, shortness of breath, or palpitations. He is looking forward to going home. He had one melena earlier today. He has no focal manifestation. OBJECTIVE: GENERAL APPEARANCE: The patient is alert and oriented, very pleasant. VITAL SIGNS: Earlier this morning revealed a blood pressure of 117/58 with a pulse of 70, respirations 20, and his maximum temperature was 97.8 degrees Fahrenheit with an oxygen saturation of 100% on room air. HEAD: Atraumatic. NECK: Supple without any jugular venous distention (JVD). LUNGS: Clear bilaterally to auscultation without any wheezing or crackles. HEART: Revealed irregular heart sounds without gallops. The point of maximal impulse (PMI) is not displaced. There is no rub. ABDOMEN: Soft, obesity, and nontender. EXTREMITIES: Revealed no pedal edema. NEUROLOGIC: Negative for focal deficits. LABORATORY DATA: CBC done today revealed a WBC of 9.4, hemoglobin 8.9, hematocrit 28.8, and platelets 226,000. Hemoglobin and hematocrit done on 12/20/2019 prior to his blood transfusion was 7.8 and 259 respectively. BMP done today revealed a sodium of 146, potassium 4.1, chloride 114, CO2 of 27, BUN 19, creatinine 0.82, GFR more than 60, fasting glucose 104, calcium 8.3, and magnesium 1.9. ASSESSMENT: Mr. Christian Villa seems to be stable from a cardiac standpoint even without his dual-antiplatelet therapy and his anticoagulation therapy. He had revascularization done for his coronary artery disease about one month ago, and he was discharged home on Plavix as well as aspirin, and he has been on Xarelto as anticoagulation therapy for his atrial fibrillation. The plan was to discontinue the aspirin after a month. He has not been taking them for almost a week and today, he will be restarted on the Plavix. We will not restart the aspirin. If he continues to be stable, we will restart his anticoagulation therapy when cleared by gastroenterology (GI) and interventional radiologist. Instead of Xarelto, I would prefer to discharge him on Eliquis, lower bleeding risk. It was a pleasure to participate in the care of Mr. Christian Villa for his underlying cardiac condition. I will continue to monitor along with you. The case was discussed earlier today with his hospitalist. VAUGHN
--- NOTE | 2019-12-23 16:17 | IPNPDOC ---
Text Note Date of Service The patient was seen on 12/23/19. NOTE Subjective: No any acute events overnight. Yesterday, patient have bowel move ments without blood Objective: GENERAL APPEARANCE: NAD HEENT: no scleral icterus, no JVD, EOMI CARDIOVASCULAR: S1S2, pacemaker in place LUNGS: CTA ABDOMEN: soft & not tender w palpitation MUSCULOSKELETAL: no cyanosis, no swelling INTEGUMENT: no generalized palor NEUROLOGICAL: cranial nerve function from 2-12 intact intact, follows commands, speech not dysarthric Patient is 69 years old male with past medical history of gastric bypass in 2009, atrial fibrillation, hypertension, hyperlipidemia, coronary artery diseases with stents placement 3 weeks ago was admitted to the hospital for pacemaker placement due to hemoglobin block and bradycardia of 30. Dr. Rolle performed procedure, after the procedure patient developed hematemesis. Patient was found to have hemoglobin of 8.9, hematocrit of 30.1. Patient was on the xarelto, aspirin and Plavix after stents placement. Problems (1) GI bleed Most likely secondary to triple therapy with xarelto, aspirin and Plavix H&H every [address] Medina performed EGD on 01/02. Patient was found to have Chronic gastritis with hemorrhage. Clip (MR conditional) was placed. Injected. - A single gastric polyp. Clip (MR conditional) was placed. Hemoglobin stable IR gastric arteriogram with embolization was done on 12/20/[address] Culver, he recommended to start Plavix Continue with PPI IV (2) Lumbar radiculopathy Continue home meds (3) AV block placed Pacemaker Heart rate under control for now Telemetry (4) Permanent atrial fibrillation Oral targeted anticoagulation on hold due to GI bleed Heart rate under control (5) Coronary artery disease Status post cardiac stent placement 3 weeks ago Continue statin Plavix restarted Acute blood loss anemia Secondary to GI bleed See above VS,Fishbone, I+O VS, Fishbone, I+O Laboratory Tests 12/23/19 05:42 Vital Signs Date Time Temp Pulse Resp B/P (MAP) Pulse Ox O2 Delivery O2 Flow Rate FiO2 12/23/19 09:57 65 12/23/19 09:57 152/71 12/23/19 06:00 98.0 20 99 Room Air 12/20/19 12:06 2 I&O- Last 24 Hours up to 6 AM 12/23/19 06:00 Intake Total 1220 ml Output Total 750 ml Balance 470 ml CHANDNI BELTRAN DO Dec 23, 2019 16:17
[2019-12-23] MEDS: ATORVASTATIN 20 MG TAB PO SCH (21:39)
[2019-12-23] MEDS: GABAPENTIN 300 MG CAP PO SCH (21:40)
[2019-12-23 22:00] VITALS: BP 150/78
[2019-12-24 00:08] VITALS: O2SAT 95
[2019-12-24 06:00] VITALS: BP 113/66
[2019-12-24 06:09] LABS: HEMOGLOBIN 7.9 g/dl (13.5-17.5); MEAN CORPUSCULAR HEMOGLOBIN 26.9 pg (27.0-33.0); MEAN CORPUSCULAR HGB CONC 30.4 g/dl (32.0-36.5); MEAN CORPUSCULAR VOLUME 88.4 fl (80.0-96.0); PLATELET COUNT, AUTOMATED 229 10^3/uL (150-450); RED BLOOD COUNT 2.94 10^6/uL (4.30-6.10); WHITE BLOOD COUNT 7.2 10^3/uL (4.0-10.0)
[2019-12-24 06:36] LABS: BLOOD UREA NITROGEN 16 MG/DL (7-18); CALCIUM LEVEL 8.3 MG/DL (8.8-10.2); CARBON DIOXIDE LEVEL 30 MEQ/L (21-32); CHLORIDE LEVEL 110 MEQ/L (98-107); GLOMERULAR FILTRATION RATE > 60.0 (>49); GLUCOSE, FASTING 99 MG/DL (70-100); POTASSIUM SERUM 3.8 MEQ/L (3.5-5.1); SODIUM LEVEL 144 MEQ/L (136-145)
[2019-12-24] MEDS: PANTOPRAZOLE 40MG VIAL (C9113 PER 1) IV SCH (08:20)
[2019-12-24] MEDS: CLOPIDOGREL 75 MG TAB PO SCH (08:23)
[2019-12-24] MEDS: SUCRALFATE 1 GM TAB PO SCH (08:23)
[2019-12-24] MEDS: METOPROLOL SUCC *XL* 25MG TAB (TopROL *XL*) PO SCH (08:23)
[2019-12-24 08:24] VITALS: BP 113/64
[2019-12-24] MEDS: amLODIPine 5 MG TAB PO SCH (08:24)
[2019-12-24] MEDS: lisinopriL 20 MG TAB PO SCH (08:24)
[2019-12-24] MEDS: PARoxetine 20 MG TAB PO SCH (08:24)
[2019-12-24 09:00] VITALS: O2SAT 96
[2019-12-24] MEDS ORDERED: IRON POLYSAC (NIFEREX) 150 MG CAP PO SCH (09:00)
--- NOTE | 2019-12-24 09:23 | IPN ---
DATE: 12/22/2019 SUBJECTIVE: Mr. Villa was seen earlier this morning, he was laying supine in bed, in no acute distress at rest. He said he feels great. He did not have any bowel movements today. There is no report of bleeding. He denies any chest pain, shortness of breath, palpitations, or orthopnea. There is no focal manifestation. Yesterday, we had restarted his Plavix/clopidogrel. OBJECTIVE: GENERAL: The patient is alert and oriented, in no acute distress at rest. VITAL SIGNS: When I saw him earlier today revealed a blood pressure of 152/71 with a pulse rate of 62, respirations 18, and his maximum temperature is 98.3 degrees Fahrenheit with an oxygen saturation of 99% on room air. He has a negative fluid balance of 595 mL. HEAD: Atraumatic. NECK: Supple. No jugular venous distention (JVD) appreciated. LUNGS: Did not reveal any wheezing or crackles. HEART: Revealed irregularly irregular heart sounds without gallops. The point of maximal impulse (PMI) is not displaced. There is no rub. I could not appreciate any murmurs. ABDOMEN: Soft and nontender. EXTREMITIES: Revealed no pedal edema. NEUROLOGIC: Negative for focal deficits. LABORATORY DATA: CBC done today revealed a WBC of 7.5, hemoglobin 8.4, hematocrit 28.4, and platelets 235,000. BMP revealed a sodium of 145, potassium 4.2, chloride 112, CO2 of 28, BUN 15, creatinine 0.89, GFR more than 60, fasting glucose 92, calcium 8.5, and magnesium 1.9. ASSESSMENT AND PLAN: 1. Mr. Christian Villa seems to be stable from a cardiac point of view, as well as gastrointestinal (GI) point of view. It does not seem that he is having any active bleed. His hemoglobin and hematocrit remain stable since yesterday and he has not passed any melena. We will continue to monitor him. If this remains stable, the bleeding, we can restart him on his novel oral anticoagulant (NOAC), but I would prefer to start him on Eliquis at 5 mg p.o. twice a day instead of the Xarelto. This will be discussed with his hospitalist. 2. History of coronary artery disease (CAD) and recent percutaneous transluminal coronary angioplasty (PTCA)/drug-eluting stent (EILEEN) about four weeks ago. He is back on his Plavix and the plan, as mentioned above, is to start his NOAC, but preferably Eliquis at 5 mg p.o. twice a day instead of the Xarelto. We will stay away from the aspirin. 3. Atrial fibrillation with underlying sick sinus syndrome, symptomatic and patient had a permanent pacemaker implanted on 12/17/2019. Will call Dr. Rolle upon discharge for follow-up on the surgical wound. Then, I will continue to monitor him at our device clinic in [place], [place]. 4. History of hypertension and today, I have increased his beta-gabriela up to 25 mg p.o. daily from 12.5 mg p.o. daily. 5. Hyperlipidemia, on a statin. 6. Obesity. The patient is aware of his body habitus. He is looking forward to losing a few pounds. It was a pleasure to participate in the care of Mr. Christian Villa for his underlying cardiac condition. I will continue to monitor him along with you. Dr. Serrano will probably see him tomorrow 12/23/2019. VAUGHN
--- NOTE | 2019-12-24 09:26 | IPN ---
DATE: 12/24/2019 SUBJECTIVE: Mr. Villa has been feeling well. He denies any chest pain, palpitations, or shortness of breath. He has been walking around without difficulty. He reported that he has normal brown colored stools. He has not had any melena since his initial presentation. OBJECTIVE: VITAL SIGNS: Blood pressure 113/66, but occasionally gets into 150s. He has been afebrile. Saturation 100% on room air. Heart rate from 60s to 70s mostly atrial fibrillation with occasional on-demand ventricular pacing. GENERAL: He is alert, oriented, and appropriate. The jugular venous pressure (JVP) is not high. LUNGS: Clear. HEART: Reveals irregular rhythm. No obvious gallop or rub is noted. There is a newly implanted pacemaker in the left subclavian pocket. The lidia look intact without any signs of infection. ABDOMEN: Obese, but soft. EXTREMITIES: Free of edema. NEUROLOGIC: He is intact. LABORATORY DATA: Basic metabolic panel is normal. CBC reveals hemoglobin 7.9, which is down slightly from 8.3 yesterday, and platelet count 229,000. ASSESSMENT AND PLAN: Mr. Villa is a 69-year-old man who has chronic atrial fibrillation and has been chronically on Xarelto. He also received two stents to the right coronary artery approximately four weeks ago. He presented with syncope that initially was felt to be bradycardia related, but it then became obvious that he had a gastrointestinal (GI) bleed and endoscopy revealed peptic ulcer disease. He received a total of four units of packed red blood cells and it appears that his hemoglobin has been relatively stable. Plavix was already restarted, but he has been off aspirin and Xarelto. He reports normal colored stools. Consequently, I do believe that it is likely okay to discharge the patient home with frequent monitoring of CBC. I will arrange for outpatient follow-up with Dr. Culver next week. I do not believe that he can be restarted on either aspirin or Xarelto yet because the bleeding risk is just too high. Otherwise, his chronic medications can be continued. VAUGHN
[2019-12-24] MEDS ORDERED: OMEP40CA97 PO (10:51)
[2019-12-24] MEDS ORDERED: SUCR1TA PO (10:51)
[2019-12-24] MEDS ORDERED: LISI-538 PO (10:52)
[2019-12-24] MEDS ORDERED: NIFE15CA PO (10:52)
[2019-12-24] MEDS ORDERED: METO1TAB32 PO (10:52)
[2019-12-24] MEDS ORDERED: FERR325T3 PO (11:05)
--- NOTE | 2019-12-24 16:31 | DS.PDOC ---
Discharge Summary General Date of Admission Dec 17, 2019 at 17:27 Date of Discharge 12/24/19 Discharge Summary PROCEDURES PERFORMED DURING STAY: [None]. ADMITTING DIAGNOSES: GI bleed AV block Permanent atrial fibrillation Coronary artery disease Acute blood loss anemia DISCHARGE DIAGNOSES: GI bleed AV block Permanent atrial fibrillation Coronary artery disease Acute blood loss anemia COMPLICATIONS/CHIEF COMPLAINT: Symptomatic Bradycardia. HISTORY OF PRESENT ILLNESS: Patient is 69 years old male with past medical history of gastric bypass in 2010, atrial fibrillation, hypertension, hyperlipidemia, coronary artery diseases with stents placement 3 weeks ago was admitted to the hospital for pacemaker placement due to hemoglobin block and bradycardia of 30. Dr. Rolle performed procedure, after the procedure patient developed hematemesis. Patient was found to have hemoglobin of 8.9, hematocrit of 30.1. Patient was on the xarelto, aspirin and Plavix after stents placement. HOSPITAL COURSE: During hospital stay following issues addressed (1) GI bleed Most likely secondary to triple therapy with xarelto, aspirin and Plavix H&H every [address] Medina performed EGD on 01/02. Patient was found to have Chronic gastritis with hemorrhage. Clip (MR conditional) was placed. Injected. - A single gastric polyp. Clip (MR conditional) was placed. Hemoglobin stable IR gastric arteriogram with embolization was done on 12/20/[address] Culver, he recommended to start Plavix Continue with PPI IV (2) Lumbar radiculopathy Continue home meds (3) AV block placed Pacemaker Heart rate under control for now Telemetry (4) Permanent atrial fibrillation Oral targeted anticoagulation on hold due to GI bleed Heart rate under control (5) Coronary artery disease Status post cardiac stent placement 3 weeks ago Continue statin Plavix restarted Acute blood loss anemia Secondary to GI bleed See above DISCHARGE MEDICATIONS: Please see below. ALLERGIES: Please see below. PHYSICAL EXAMINATION ON DISCHARGE: VITAL SIGNS: Please see below. GENERAL APPEARANCE: NAD HEENT: no scleral icterus, no JVD, EOMI CARDIOVASCULAR: S1S2, pacemaker in place LUNGS: CTA ABDOMEN: soft & not tender w palpitation MUSCULOSKELETAL: no cyanosis, no swelling INTEGUMENT: no generalized palor NEUROLOGICAL: cranial nerve function from 2-12 intact intact, follows commands, speech not dysarthric LABORATORY DATA: Please see below. PROGNOSIS: Fair ACTIVITY: [As tolerated]. Diet: Cardiac DISCHARGE PLAN: Follow-up with voltage regulator assembler, hydrocrane operator and PCP DISPOSITION: 01 Home, Self-Care. DISCHARGE CONDITION: [Stable]. TIME SPENT ON DISCHARGE: Greater than 40 minutes. Vital Signs/I&Os Vital Signs Date Time Temp Pulse Resp B/P (MAP) Pulse Ox O2 Delivery O2 Flow Rate FiO2 12/24/19 09:00 96 Room Air 12/24/19 08:24 68 113/64 12/24/19 06:00 97.6 17 12/20/19 12:06 2 I&O- Last 24 Hours up to 6 AM 12/24/19 05:59 Intake Total 1200 ml Output Total 1650 ml Balance -450 ml Laboratory Data Labs 24H Laboratory Tests 2 12/24/19 05:29: Nucleated Red Blood Cells % (auto) 0.0, Anion Gap 4L, Glomerular Filtration Rate > 60.0, Calcium Level 8.3L, Magnesium Level 2.0 CBC/BMP Laboratory Tests 12/24/19 05:29 Discharge Medications Scheduled Amlodipine Besylate (Amlodipine Besylate) 5 Mg Tablet, 5 MG PO QHS, (Reported) Atorvastatin Calcium (Atorvastatin Calcium) 40 Mg Tablet, 40 MG PO QHS, (Reported) Clopidogrel Bisulfate (Clopidogrel) 75 Mg Tablet, 75 MG PO DAILY, (Reported) Ferrous Sulfate (Ferrous Sulfate) 325 Mg Tablet.dr, 1 TAB PO BID Gabapentin (Gabapentin) 300 Mg Capsule, 300 MG PO QHS, (Reported) Isosorbide Mononitrate (Isosorbide Mononitrate ER) 30 Mg Tab.er.24h, 30 MG PO DAILY, (Reported) Lisinopril (Lisinopril) 20 Mg Tablet, 20 MG PO DAILY Memantine HCl (Memantine HCl) 5 Mg Tablet, 5 MG PO BID, (Reported) Metoprolol Succinate (Metoprolol Succinate) 25 Mg Tab.er.24h, 25 MG PO QAM Omeprazole (Omeprazole) 40 Mg Capsule.dr, 40 MG PO DAILY Paroxetine HCl (Paroxetine HCl) 20 Mg Tablet, 20 MG PO DAILY, (Reported) Pedi Multivit No.7/Folic Acid (Flintstones Tab Chew) 100 Mcg Tab.chew, 1 CHW PO DAILY, (Reported) Sucralfate (Sucralfate) 1 Gm Tablet, 1 GM PO QID Scheduled PRN Gabapentin (Gabapentin) 300 Mg Capsule, 300 MG PO DAILY PRN for PAIN, (Reported) Nitroglycerin (Nitrostat) 0.4 Mg Tab.subl, 0.4 MG SL NITRO PRN for CHEST PAIN, (Reported) Allergies Coded Allergies: No Known Allergies (Unverified , 12/17/19) CHANDNI BELTRAN DO Dec 24, 2019 16:31
== END 2019-12-24 13:15 | disposition home or self-care (01) | DRG 270 ==
LOC: EDBD 10:53 → M ED 10:53 → M SDC 10:54 → ENRESERV 11:57 → M ED INP 13:15 → M PCU 13:15 → M ICU 17:00 → M SDC 17:26 → M ICU 17:27 → M MSPAV 12-18 13:07
PROVIDERS: ADMIT Internal Medicine; ATTEND Internal Medicine
PROC: 0JH604Z Insertion of Pacemaker, Single Chamber into Chest Subcutaneous Tissue and Fascia, Open Approach (ICD-10-PCS; 2019-12-17)
PROC: 02HK3JZ Insertion of Pacemaker Lead into Right Ventricle, Percutaneous Approach (ICD-10-PCS; 2019-12-17)
PROC: 30233N1 Transfusion of Nonautologous Red Blood Cells into Peripheral Vein, Percutaneous Approach (ICD-10-PCS; 2019-12-17)
PROC: 0W3P8ZZ Control Bleeding in Gastrointestinal Tract, Via Natural or Artificial Opening Endoscopic (ICD-10-PCS; 2019-12-18)
PROC: B40BYZZ Plain Radiography of Other Intra-Abdominal Arteries using Other Contrast (ICD-10-PCS; 2019-12-20)
PROC: 04L Lower Arteries, Occlusion (ICD-10-PCS; principal; 2019-12-20 09:00)
DX: I49.5 Sick sinus syndrome (principal); K29.51 Unspecified chronic gastritis with bleeding; I48.21 Permanent atrial fibrillation; D68.32 Hemorrhagic disorder due to extrinsic circulating anticoagulants; I44.2 Atrioventricular block, complete; D62 Acute posthemorrhagic anemia; Z68.41 Body mass index [BMI] 40.0-44.9, adult; I10 Essential (primary) hypertension; E78.5 Hyperlipidemia, unspecified; F41.9 Anxiety disorder, unspecified; K21.9 Gastro-esophageal reflux disease without esophagitis; G47.33 Obstructive sleep apnea (adult) (pediatric); M54.16 Radiculopathy, lumbar region; K31.7 Polyp of stomach and duodenum; R55 Syncope and collapse; I25.10 Atherosclerotic heart disease of native coronary artery without angina pectoris; Z95.5 Presence of coronary angioplasty implant and graft; Z98.84 Bariatric surgery status; Z90.49 Acquired absence of other specified parts of digestive tract; Z98.41 Cataract extraction status, right eye; Z98.42 Cataract extraction status, left eye; Z79.02 Long term (current) use of antithrombotics/antiplatelets; Z79.01 Long term (current) use of anticoagulants; Z79.899 Other long term (current) drug therapy; Z85.820 Personal history of malignant melanoma of skin; Z20.828 Contact with and (suspected) exposure to other viral communicable diseases; E66.9 Obesity, unspecified

== ENCOUNTER 2019-12-31 10:13 | Inpatient (IN) | payer MEDICARE ==
[~2019-12-31] VITALS: Ht 167.6 cm; Wt 119.5 kg
[~2019-12-31 10:13] MED LIST changes: +AMLO1TAB24 PO; +ATOR40TA75 PO; +CLOP75TA2 PO; +FERR325T3 PO; +FLINCHW11 PO; +ISOS30TA4 PO; +LISI-538 PO; +MEMA1TAB3 PO; +METO1TAB32 PO; +NIFE15CA PO; +NITR4TASL SL; +OMEP40CA97 PO; +PANT20TA51 PO; +PARO20TA3 PO; +SUCR1TA PO; +XARE20TA PO
[2019-12-31] MEDS ORDERED: NS 1,000 ML IV ONE (11:30)
[2019-12-31] MEDS ORDERED: LISI-538 PO (11:53)
[2019-12-31] MEDS ORDERED: FERR1TAB8 PO (11:53)
[2019-12-31] MEDS ORDERED: SUCR1TAB56 PO (11:53)
[2019-12-31 11:56] LABS: BASO % 0.1 % (0.0-1.0); EOS # 0.1 10^3/uL (0.0-0.5); EOS % 1.3 % (0.0-3.0); HEMATOCRIT 28.8 % (42.0-52.0); HEMOGLOBIN 8.5 g/dl (13.5-17.5); LYMPH # 0.7 10^3/uL (1.5-5.0); LYMPH % 6.6 % (24.0-44.0); MEAN CORPUSCULAR HEMOGLOBIN 26.6 pg (27.0-33.0); MEAN CORPUSCULAR HGB CONC 29.5 g/dl (32.0-36.5); MEAN CORPUSCULAR VOLUME 90.3 fl (80.0-96.0); MONO # 0.9 10^3/uL (0.0-0.8); MONO % 8.5 % (0.0-5.0); NEUTROPHILS # 8.3 10^3/uL (1.5-8.5); NEUTROPHILS % 82.7 % (36.0-66.0); PLATELET COUNT, AUTOMATED 372 10^3/uL (150-450); RED BLOOD COUNT 3.19 10^6/uL (4.30-6.10); WHITE BLOOD COUNT 10.1 10^3/uL (4.0-10.0)
[2019-12-31] MEDS ORDERED: METO1TAB32 PO (11:56)
[2019-12-31] MEDS ORDERED: PANT40TA29 PO (11:56)
[2019-12-31 12:09] LABS: INR 1.11; PROTHROMBIN TIME 14.5 SECONDS (12.5-14.3)
[2019-12-31 12:26] LABS: ALBUMIN 3.3 GM/DL (3.2-5.2); ALT/SGPT 20 U/L (12-78); BILIRUBIN,DIRECT 0.2 MG/DL (0.0-0.2); BILIRUBIN,TOTAL 0.5 MG/DL (0.2-1.0); BLOOD UREA NITROGEN 17 MG/DL (7-18); CALCIUM LEVEL 8.9 MG/DL (8.8-10.2); CARBON DIOXIDE LEVEL 30 MEQ/L (21-32); CHLORIDE LEVEL 112 MEQ/L (98-107); CREATININE FOR GFR 1.06 MG/DL (0.70-1.30); GLOMERULAR FILTRATION RATE > 60.0 (>49); GLUCOSE, FASTING 97 MG/DL (70-100); LIPASE 79 U/L (73-393); POTASSIUM SERUM 4.1 MEQ/L (3.5-5.1); SODIUM LEVEL 145 MEQ/L (136-145); TOTAL PROTEIN 6.6 GM/DL (6.4-8.2)
[2019-12-31] MEDS ORDERED: ISOVUE-370 76% 100ML VIAL As Ordered ONE (12:51)
[2019-12-31] MEDS ORDERED: PANTOPRAZOLE 40MG VIAL (C9113 PER 1) IV ONE (13:15)
--- NOTE | 2019-12-31 13:26 | REP ---
INDICATION: shortness of breath COMPARISON: 12/18/2019. TECHNIQUE: PA/Lateral FINDINGS: Lungs: There is mild bibasilar atelectasis/infiltrate. Heart: There is mild cardiomegaly. Mediastinum: There is calcification of the thoracic aorta. The mediastinal silhouette is unchanged. Pleural angles: There small bilateral pleural effusions.. Bones and soft tissues: There are degenerative changes of the spine without compression deformity. There is a left single lead pacemaker again noted. IMPRESSION: Mild cardiomegaly. Mild bibasilar atelectasis/infiltrate with small bilateral effusions. <Electronically signed by Laith Dutton > 12/31/19 [id number]
[2019-12-31] MEDS: PANTOPRAZOLE SODIUM 40 MG in D5W 50 ML IV SCH ×2 (14:15→20:29)
[2019-12-31] MEDS ORDERED: NS 1,000 ML IV SCH (14:35)
[2019-12-31] MEDS ORDERED: ACETAMINOPHEN TAB 650MG DOSE (2X325MG) PO PRN (14:45)
--- NOTE | 2019-12-31 15:05 | REP ---
INDICATION: hx of internal bleeding, distension/abd pain COMPARISON: 02/08/2006. TECHNIQUE: CT Scan of the abdomen and pelvis was performed with intravenous administration of 100 cc of Isovue 370, without oral contrast. FINDINGS: Lung bases: There are small bilateral pleural effusions right greater than left. There adjacent bibasilar patchy densities compatible with bibasilar atelectasis/infiltrate. Liver: Normal Gallbladder: Prior cholecystectomy. Spleen: Normal. Adrenals: There is a 1.6 cm left adrenal adenoma unchanged since prior CT. Pancreas: Normal. Kidneys: Normal. Small and large bowel: Diverticula are noted of the left and sigmoid colon without acute diverticulitis. There has been prior gastric surgery. Free fluid: None. Abdominal aorta: No aneurysm or dissection. Adenopathy: None. Appendix: Prior appendectomy. Osseous structures: There are degenerative changes of the spine without compression deformity. Pelvis: No mass. IMPRESSION: Small bilateral pleural effusions with adjacent bibasilar atelectasis/infiltrate. No acute abnormalities in the abdomen or pelvis. <Electronically signed by Laith Dutton > 12/31/19 [id number]
[2019-12-31] MEDS ORDERED: LABETALOL 100MG/20ML VIAL IV STA ×2 (15:55→18:38)
[2019-12-31 17:03] VITALS: BP 154/68
--- NOTE | 2019-12-31 17:34 | HPEPDOC ---
General Date of Admission Dec 31, 2019 Date of Service: Dec 31, 2019 Attending Physician: CARLOTTA HIDALGO MD Chief Complaint The patient is a 69-year-old male admitted with a reason for visit of Gi Blee mainor. History of Present Illness Christian Villa is a 69 y/o male presenting with blood in his stool of 4 days duration. Patient's PMH is significant for a gastric bypass in 2009, atrial fibrillation, HTN, HLD, CAD with stent placement 4 weeks ago. Pt was recently admitted (12/17/19-12/24/19) in which a pacemaker was placed due to symptomatic bradycardia and an EGD was done which showed areas of erosion, localized moderate inflammation with hemorrhage and deep ulcerations in gastric fundus. Clip (MR conditional) was placed. An angiography with coiling of a gastric artery was also done during this admission for persistent bleed. Pt admits to dark stool starting 4 days ago progressing to black currently with bright red blood when wiping this morning. Pt states he suddenly felt weak at a doctor's appointment this morning which prompted his ED visit. He also admits to feeling faint, light headed, dizzy, blurry vision, SOB on exertion, and palpitations over the past few days. He notes he has had some leg swelling since his recent hospital discharge, but it has improved. Pt was found to have a hemoglobin of 8.5 and Hct of 28.8 on arrival to ED. Pt was given an IV Bolus of NS, Pantoprazole sodium 40mg IV, and 3 units of packed RBCs were ordered. Home Medications Scheduled Amlodipine Besylate (Amlodipine Besylate) 5 Mg Tablet, 5 MG PO QHS, (Reported) Atorvastatin Calcium (Atorvastatin Calcium) 40 Mg Tablet, 40 MG PO QHS, (Reported) Clopidogrel Bisulfate (Clopidogrel) 75 Mg Tablet, 75 MG PO DAILY, (Reported) Ferrous Sulfate (Ferrous Sulfate) 325 Mg Tablet, 325 MG PO DAILY, (Reported) Gabapentin (Gabapentin) 300 Mg Capsule, 300 MG PO QHS, (Reported) Lisinopril (Lisinopril) 20 Mg Tablet, 20 MG PO DAILY, (Reported) Memantine HCl (Memantine HCl) 5 Mg Tablet, 5 MG PO BID, (Reported) Metoprolol Succinate (Metoprolol Succinate) 25 Mg Tab.er.24h, 25 MG PO DAILY, (Reported) Pantoprazole Sodium (Pantoprazole Sodium) 40 Mg Tablet., 40 MG PO DAILY, (R eported) Paroxetine HCl (Paroxetine HCl) 20 Mg Tablet, 20 MG PO DAILY, (Reported) Pedi Multivit No.7/Folic Acid (Flintstones Tab Chew) 100 Mcg Tab.chew, 1 CHW PO DAILY, (Reported) Sucralfate (Sucralfate) 1 Gm Tablet, 1 GM PO ACHS, (Reported) Scheduled PRN Gabapentin (Gabapentin) 300 Mg Capsule, 300 MG PO DAILY PRN for PAIN, (Reported) Nitroglycerin (Nitrostat) 0.4 Mg Tab.subl, 0.4 MG SL NITRO PRN for CHEST PAIN, (Reported) Allergies Coded Allergies: No Known Allergies (Unverified , 12/17/19) Past Medical History Medical History Medical History: gastric bypass in 2009, atrial fibrillation, HTN, HLD, CAD with stent placement 4 weeks ago, symptomatic bradycardia requiring pacemaker implantation Surgical History Surgical History: Cardiac stents placed in Nov 2019 Gastric bypass in 2009 Cholecystectomy in 2005 Appendectomy in 2002 Umbilical hernia repair in Bilateral cataract surgery in 2014 Multiple surgeries for cleft palate Lower back surgery Family History Pt unable to recall full family hx. Father was on dialysis and mother had HTN. Social History Smoking - denies Alcohol - occasionally Recreational drug use - denies Marital - to and has 3 children Review of Systems Other systems Review of systems: General: Admits to 10lb weight gain since discharge from hospital last week. Denies fever, chills. . HEENT: Admits to blurry vision. Denies sinus congestion, sore throat, trouble swallowing, ear pain and ear drainage. Skin: Denies rashes or wounds. Lungs: Admits to SOB on standing and walking. Denies cough and wheezing. Cardiac: Admits to palpitations. Denies chest pain. GI: Admits to dark, black stool, bright red blood when wiping. Denies nausea, vomiting, constipation and diarrhea. : Denies dysuria, frequency or blood in urine. MSK: Admits to bilateral swelling of LE. Denies pain in joints. Neurological: Admits to lightheadedness, dizziness and blurry vision. Denies numbness or tingling in UE and LE, headaches. Physical Examination Other physical findings Physical examination: General exam: alert, oriented, cooperative and talkative. Skin: no rashes or wounds. ENT Exam: PERRL. conjunctival pallor noted. no scleral icterus noted. Cardiac: S1S2 RRR, no murmurs, rubs or gallops. Lungs: Clear to auscultation in all lung parks. No wheezing or rales appreciated. Abdomen: obese, soft and nontender to palpation. Bowel sounds heard in all 4 quadrants. MSK: bilateral +1 piting edema of LE up to the mid calf. no cyanosis. Neuro exam: alert and oriented x3, EOM intact, CN 2-12 intact. No dysarthria. Psych: normal mood and affect Vital Signs Vital Signs Date Time Temp Pulse Resp B/P (MAP) Pulse Ox O2 Delivery O2 Flow Rate FiO2 12/31/19 13:28 12/31/19 13:27 69 71 65 12/31/19 10:14 98.6 16 98 Room Air Laboratory Data Labs 24H Laboratory Tests 2 12/31/19 11:36: Immature Granulocyte % (Auto) 0.8, Neutrophils (%) (Auto) 82.7H, Lymphocytes (%) (Auto) 6.6L, Monocytes (%) (Auto) 8.5H, Eosinophils (%) (Auto) 1.3, Basophils (%) (Auto) 0.1, Neutrophils # (Auto) 8.3, Lymphocytes # (Auto) 0.7L, Monocytes # (Auto) 0.9H, Eosinophils # (Auto) 0.1, Basophils # (Auto) 0.0, Nucleated Red Blood Cells % (auto) 0.0, Prothrombin Time 14.5H, Prothromb Time International Ratio 1.11, Activated Partial Thromboplast Time 32.0, Anion Gap 3L, Glomerular Filtration Rate > 60.0, Calcium Level 8.9, Total Bilirubin 0.5, Direct Bilirubin 0.2, Aspartate Amino Transf (AST/SGOT) 13, Alanine Aminotransferase (ALT/SGPT) 20, Alkaline Phosphatase 96, Total Protein 6.6, Albumin 3.3, Albumin/Globulin Ratio 1.0, Lipase 79, Coronavirus (COVID-19)(PCR) NEGATIVE CBC/BMP Laboratory Tests 12/31/19 11:36 Assessment/Plan Assessment/Plan: Mr. Villa is a 69 year old male with PMH including gastric bypass, symptomatic bradycardia requiring a pacemaker placement 1 week ago, CAD requiring stent placement 4 weeks ago, atrial fibrillation, HTN, and HLD. Pt is presenting with dark red blood in stool suggesting an upper GI bleed. Pt admits to dizziness, lightheadedness, SOB on walking and standing, and palpitations. Pt is found to have hemoglobin of 8.4 and hematocrit of 28.8 on arrival to ED. 1. Suspected upper GI Bleed: - GI consulted (Dr. Sotomayor) for evaluation and possible EGD - NPO pending GI recommendations, IV maintenance fluids - trend H&H - Protonix drip initiated, oral carafate when diet is started 2. Acute symptomatic anemia on chronic iron deficient anemia - secondary to above suspected GI bleed - transfuse 3 units packed RBCs - continue ferrous sulfate 325 mg tablet BID for chronic iron deficient anemia 3. SOB, likely due to acute symptomatic anemia -expect improvement with PRBC transfusion -CXR showed mild cardiomegaly, mild bibasilar atelectasis/infiltrate with small bilateral effusions -continue to monitor for fluid overload while patient is on IV maintenance fluids 4. Afib w/ pacemaker -previously on Xarelto, discontinued during recent admission for GI bleed -hold metoprolol in the setting of acute GI bleed 5. CAD w/ stent placement - Recent stent placed approx 4 weeks ago at [facility] - continue clopidogrel bisulfate 75 mg PO daily - contraindicated to hold Plavix w/ history of recent stent placement 6. HTN - continue lisinopril 20mg tablet PO daily - continue amlodipine besylate 5 mg tablet PO QHS 7. HLD - continue Atorvastatin Calcium 40mg tablet PO QHS 8. Lumbar radiculopathy - hold gabapentin 9. Unspecified dementia - hold Memantine 10. Unspecified mood disorder: - hold Paroxetine DVT PROPHYLAXIS: TEDS & SCDS, no chemical prophylaxis due to GI bleed DISPOSITION: pending clinical improvement and GI evaluation Plan / VTE VTE Prophylaxis Ordered?: Yes GME ATTESTATION GME ATTESTATION My faculty preceptor for this patient encounter was physically present during the encounter and was fully available. All aspects of the patient interview, examination, medical decision making process, and medical care plan development were reviewed and approved by the faculty preceptor. The faculty preceptor is aware and concurs with the plan as stated in the body of this note and will attest to such by his/her cosignature. ATTENDING NOTE I, Carlotta Hidalgo, have independently examined this patient and performed my own physical exam, as well as reviewed the documentation and edited where necessary. I have discussed in detail with the resident / student the findings and plan of treatment as documented by the resident / student and edited their note. I agree with their findings and treatment plan and have edited their documentation. I will continue to follow the patient during this hospital stay. RONDA PETERS S-3 Dec 31, 2019 15:53 CARLEY ZACARIAS D.O. Dec 31, 2019 18:10 CARLOTTA HIDALGO MD Dec 31, 2019 18:18
[2019-12-31] MEDS ORDERED: amLODIPine 5 MG TAB PO SCH (17:45)
[2019-12-31 17:47] VITALS: BP 191/79
[2019-12-31] MEDS: lisinopriL 20 MG TAB PO SCH (18:04)
[2019-12-31] MEDS: amLODIPine 5 MG TAB PO SCH (18:04)
[2019-12-31 18:32] VITALS: BP 207/80
[2019-12-31 19:55] VITALS: BP 190/82
[2019-12-31 20:00] VITALS: BP 190/82
[2019-12-31] MEDS: ATORVASTATIN 20 MG TAB PO SCH (20:29)
[2019-12-31] MEDS: SUCRALFATE 1 GM TAB PO SCH (20:29)
--- NOTE | 2019-12-31 21:09 | ECGEPIP ---
[facility] - ED Test Date: 2019-12-31 Pat Name: BRUNO CADE Department: Room: - Gender: Male Medical Transcription Supervisor: savita : 1950 Requested By: KAREY Kendrick PA-C Order Number: [id number] Reading MD: Jl Worley Measurements Intervals [place] Rate: 63 P: [place]: 0 QRS: -72 QRSD: 169 T: 74 QT: 437 QTc: 448 Interpretive Statements ELECTRONIC VENTRICULAR PACEMAKER underlying rhythm is atrial fibrillation as previous noted in 12-18-19 tracing Electronically Signed on 12-31-2019 21:08:42 EST by Jl Worley
[2019-12-31] MEDS: IPRATROPIUM 0.5MG/ALBUTEROL 2.5MG INH SOL UD 3ML (DUONEB) NEB PRN (23:22)
[2019-12-31 23:28] LABS: HEMATOCRIT 30.2 % (42.0-52.0)
[2020-01-01] VITALS (9 sets, daily range): BP systolic 138–195; BP diastolic 68–91
[2020-01-01] MEDS: PANTOPRAZOLE SODIUM 40 MG in D5W 50 ML IV SCH ×3 (01:39→11:51)
[2020-01-01 06:07] LABS: HEMATOCRIT 30.4 % (42.0-52.0); HEMOGLOBIN 9.3 g/dl (13.5-17.5); MEAN CORPUSCULAR HEMOGLOBIN 27.2 pg (27.0-33.0); MEAN CORPUSCULAR HGB CONC 30.6 g/dl (32.0-36.5); MEAN CORPUSCULAR VOLUME 88.9 fl (80.0-96.0); PLATELET COUNT, AUTOMATED 344 10^3/uL (150-450); RED BLOOD COUNT 3.42 10^6/uL (4.30-6.10); WHITE BLOOD COUNT 10.2 10^3/uL (4.0-10.0)
[2020-01-01 06:34] LABS: BLOOD UREA NITROGEN 11 MG/DL (7-18); CALCIUM LEVEL 8.4 MG/DL (8.8-10.2); CARBON DIOXIDE LEVEL 26 MEQ/L (21-32); CHLORIDE LEVEL 110 MEQ/L (98-107); CREATININE FOR GFR 0.95 MG/DL (0.70-1.30); GLOMERULAR FILTRATION RATE > 60.0 (>49); GLUCOSE, FASTING 93 MG/DL (70-100); MAGNESIUM LEVEL 1.9 MG/DL (1.8-2.4); POTASSIUM SERUM 3.7 MEQ/L (3.5-5.1); SODIUM LEVEL 142 MEQ/L (136-145)
[2020-01-01] MEDS: SUCRALFATE 1 GM TAB PO SCH ×4 (07:59→20:38)
[2020-01-01] MEDS: CLOPIDOGREL 75 MG TAB PO SCH (08:02)
[2020-01-01] MEDS: lisinopriL 20 MG TAB PO SCH (08:02)
[2020-01-01] MEDS: FERROUS SULFATE 325MG TAB PO SCH (08:02)
[2020-01-01] MEDS: IPRATROPIUM 0.5MG/ALBUTEROL 2.5MG INH SOL UD 3ML (DUONEB) NEB PRN ×3 (08:06→22:21)
[2020-01-01] MEDS ORDERED: FUROSEMIDE 20MG/2ML VIAL (J1940) IV ONE (08:30)
--- NOTE | 2020-01-01 11:05 | HPEPDOC ---
[facility] Medical History & Physical Date of Admission Dec 31, 2019 Date of Service: Dec 31, 2019 Attending Physician: CARLOTTA HIDALGO MD History and Physical CHIEF COMPLAINT: short of breath, lightheaded, blood in stool HISTORY OF PRESENT ILLNESS: Christian Villa is a 69 y/o male presenting with blood in his stool of 4 days duration. Patient's PMH is significant for a gastric bypass in 2009, atrial fibrillation, HTN, HLD, CAD with stent placement 4 weeks ago. Pt was recently admitted (12/17/19-12/24/19) in which a pacemaker was placed due to symptomatic bradycardia and an EGD was done which showed areas of erosion, localized moderate inflammation with hemorrhage and deep ulcerations in gastric fundus. Clip (MR conditional) was placed. An angiography with coiling of a gastric artery was also done during this admission for persistent bleed. Pt admits to dark stool starting 4 days ago progressing to black currently with bright red blood when wiping this morning. Pt states he suddenly felt weak at a doctor's appointment this morning which prompted his ED visit. He also admits to feeling faint, light headed, dizzy, blurry vision, SOB on exertion, and palpitations over the past few days. He notes he has had some leg swelling since his recent hospital discharge, but it has improved. Pt was found to have a hemoglobin of 8.5 and Hct of 28.8 on arrival to ED. Pt was given an IV Bolus of NS, Pantoprazole sodium 40mg IV, and 3 units of packed RBCs were ordered. PAST MEDICAL HISTORY: 1. Atrial fibrillation s/p pacemaker for symptomatic bradycardia 2. HTN 3. HLD 4. CAD with stent placement 4 weeks ago PAST SURGICAL HISTORY: 1. Cardiac stents placed in Nov 2019 2. Gastric bypass in 2009 3. Cholecystectomy in 2005 4. Appendectomy in 2002 5. Umbilical hernia repair in 1989 6. Bilateral cataract surgery in 2014 7. Multiple surgeries for cleft palate 8. Lower back surgery SOCIAL HISTORY: Smoking - denies Alcohol - occasionally Recreational drug use - denies Marital - to and has 3 children FAMILY HISTORY: Pt unable to recall full family hx. Father was on dialysis and mother had HTN. ALLERGIES: Please see below. REVIEW OF SYSTEMS: CONSTITUTIONAL: Admits to 10lb weight gain since discharge from hospital last week. Denies fever, chills. HEENT: Admits to blurry vision. Denies sinus congestion, sore throat, trouble swallowing, ear pain and ear drainage. CARDIOVASCULAR: Admits to palpitations. Denies chest pain. RESPIRATORY: Admits to SOB on standing and walking. Denies cough and wheezing. GASTROINTESTINAL: Admits to dark, black stool, bright red blood when wiping. D enies nausea, vomiting, constipation and diarrhea. GENITOURINARY: Denies dysuria, frequency or blood in urine. SKIN: Denies rashes or wounds. MUSCULOSKELETAL: Admits to bilateral swelling of LE. Denies pain in joints. NEUROLOGICAL: Admits to lightheadedness, dizziness and blurry vision. Denies numbness or tingling in UE and LE, headaches. PSYCHIATRIC: Denies change in mood. HOME MEDICATIONS: Please see below. PHYSICAL EXAMINATION: VITAL SIGNS: see below GENERAL APPEARANCE: alert, oriented, cooperative and talkative. HEENT: PERRL. conjunctival pallor noted. no scleral icterus noted. CARDIOVASCULAR: S1S2 RRR, no murmurs, rubs or gallops. LUNGS: Clear to auscultation in all lung parks. No wheezing or rales appreciated. ABDOMEN: obese, soft and nontender to palpation. Bowel sounds heard in all 4 quadrants. MUSCULOSKELETAL: moves all four extremities spontaneously EXTREMITIES: bilateral +1 piting edema of LE up to the mid calf. no cyanosis. SKIN: no rashes or wounds. NEUROLOGICAL: alert and oriented x3, EOM intact, CN 2-12 intact. No dysarthria. PSYCHIATRIC: normal mood and affect LABORATORY DATA: See below. MICROBIOLOGY: Please see below. ASSESSMENT: Mr. Villa is a 69 year old male with PMH including gastric bypass, symptomatic bradycardia requiring a pacemaker placement 1 week ago, CAD requiring stent placement 4 weeks ago, atrial fibrillation, HTN, and HLD. Pt is presenting with dark red blood in stool suggesting an upper GI bleed. Pt admits to dizziness, lightheadedness, SOB on walking and standing, and palpitations. Pt is found to have hemoglobin of 8.4 and hematocrit of 28.8 on arrival to ED. PLAN: 1. Suspected upper GI Bleed: - GI consulted (Dr. Sotomayor) for evaluation and possible EGD - NPO pending GI recommendations, IV maintenance fluids - trend H&H - Protonix drip initiated, oral carafate when diet is started 2. Acute symptomatic anemia on chronic iron deficient anemia - secondary to above suspected GI bleed - transfuse 3 units packed RBCs - continue ferrous sulfate 325 mg tablet BID for chronic iron deficient anemia 3. SOB, likely due to acute symptomatic anemia -expect improvement with PRBC transfusion -CXR showed mild cardiomegaly, mild bibasilar atelectasis/infiltrate with small bilateral effusions -continue to monitor for fluid overload while patient is on IV maintenance fluids 4. Afib w/ pacemaker -previously on Xarelto, discontinued during recent admission for GI bleed -hold metoprolol in the setting of acute GI bleed 5. CAD w/ stent placement - Recent stent placed approx 4 weeks ago at [facility] - continue clopidogrel bisulfate 75 mg PO daily - contraindicated to hold Plavix w/ history of recent stent placement 6. HTN - continue lisinopril 20mg tablet PO daily - continue amlodipine besylate 5 mg tablet PO QHS 7. HLD - continue Atorvastatin Calcium 40mg tablet PO QHS 8. Lumbar radiculopathy - hold gabapentin 9. Unspecified dementia - hold Memantine 10. Unspecified mood disorder: - hold Paroxetine DVT PROPHYLAXIS: TEDS & SCDS, no chemical prophylaxis due to GI bleed DISPOSITION: pending clinical improvement and GI evaluation Vital Signs Vital Signs Date Time Temp Pulse Resp B/P (MAP) Pulse Ox O2 Delivery O2 Flow Rate FiO2 01/01/20 10:24 98.6 60 20 163/72 Room Air 01/01/20 07:46 98 Laboratory Data Labs 24H Laboratory Tests 2 12/31/19 11:36: Immature Granulocyte % (Auto) 0.8, Neutrophils (%) (Auto) 82.7H, Lymphocytes (%) (Auto) 6.6L, Monocytes (%) (Auto) 8.5H, Eosinophils (%) (Auto) 1.3, Basophils (%) (Auto) 0.1, Neutrophils # (Auto) 8.3, Lymphocytes # (Auto) 0.7L, Monocytes # (Auto) 0.9H, Eosinophils # (Auto) 0.1, Basophils # (Auto) 0.0, Nucleated Red Blood Cells % (auto) 0.0, Prothrombin Time 14.5H, Prothromb Time International Ratio 1.11, Activated Partial Thromboplast Time 32.0, Anion Gap 3L, Glomerular Filtration Rate > 60.0, Calcium Level 8.9, Total Bilirubin 0.5, Direct Bilirubin 0.2, Aspartate Amino Transf (AST/SGOT) 13, Alanine Aminotransferase (ALT/SGPT) 20, Alkaline Phosphatase 96, Total Protein 6.6, Albumin 3.3, Albumin/Globulin Ratio 1.0, Lipase 79, Coronavirus (COVID-19)(PCR) NEGATIVE 01/01/20 05:36: Nucleated Red Blood Cells % (auto) 0.0, Anion Gap 6L, Glomerular Filtration Rate > 60.0, Calcium Level 8.4L, Magnesium Level 1.9 CBC/BMP Laboratory Tests 12/31/19 11:36 12/31/19 23:22 01/01/20 05:36 Home Medications Scheduled Amlodipine Besylate (Amlodipine Besylate) 5 Mg Tablet, 5 MG PO QHS Atorvastatin Calcium (Atorvastatin Calcium) 40 Mg Tablet, 40 MG PO QHS Clopidogrel Bisulfate (Clopidogrel) 75 Mg Tablet, 75 MG PO DAILY Ferrous Sulfate (Ferrous Sulfate) 325 Mg Tablet, 325 MG PO DAILY Gabapentin (Gabapentin) 300 Mg Capsule, 300 MG PO QHS Lisinopril (Lisinopril) 20 Mg Tablet, 20 MG PO DAILY Memantine HCl (Memantine HCl) 5 Mg Tablet, 5 MG PO BID Metoprolol Succinate (Metoprolol Succinate) 25 Mg Tab.er.24h, 25 MG PO DAILY Pantoprazole Sodium (Pantoprazole Sodium) 40 Mg Tablet.dr, 40 MG PO DAILY Paroxetine HCl (Paroxetine HCl) 20 Mg Tablet, 20 MG PO DAILY Pedi Multivit No.7/Folic Acid (Flintstones Tab Chew) 100 Mcg Tab.chew, 1 CHW PO DAILY Sucralfate (Sucralfate) 1 Gm Tablet, 1 GM PO ACHS Scheduled PRN Gabapentin (Gabapentin) 300 Mg Capsule, 300 MG PO DAILY PRN for PAIN Nitroglycerin (Nitrostat) 0.4 Mg Tab.subl, 0.4 MG SL NITRO PRN for CHEST PAIN Allergies Coded Allergies: No Known Allergies (Unverified , 12/17/19) A-FIB/CHADSVASC A-FIB History Current/History of A-Fib/PAF?: Yes Current PO Anticoag Therapy: No Treatment Treatment ordered: Holding Other Reason Anticoagulant not given: Current bleeding GME ATTESTATION GME ATTESTATION My faculty preceptor for this patient encounter was physically present during the encounter and was fully available. All aspects of the patient interview, examination, medical decision making process, and medical care plan development were reviewed and approved by the faculty preceptor. The faculty preceptor is aware and concurs with the plan as stated in the body of this note and will attest to such by his/her cosignature. ATTENDING NOTE I, Carlotta Hidalgo, have independently examined this patient and performed my own physical exam, as well as reviewed the documentation and edited where necessary. I have discussed in detail with the resident / student the findings and plan of treatment as documented by the resident / student and edited their note. I agree with their findings and treatment plan and have edited their documentation. I will continue to follow the patient during this hospital stay. CARLEY ZACARIAS D.O. Jan 01, 2020 11:05 CARLOTTA HIDALGO MD Jan 01, 2020 12:31
--- NOTE | 2020-01-01 12:44 | IPNPDOC ---
Text Note Date of Service The patient was seen on 01/01/20. NOTE SUBJECTIVE: Mr. Villa was seen and examined at bedside this morning. He was sitting up on the edge of the bed and had just received a nebulizer treatment. Pt states that he had a rough night in which he was short of breath the entire night. He was given oxygen which improved his symptoms. Pt admits to shortness of breath, coughing clear sputum and edema in bilateral LE. Pt denies dizziness, lightheadedness, fever, and chills. Pt had a BM this morning which was not bloody. Pt appears anxious about condition and was counselled on the plan moving forward. OBJECTIVE: VITALS: SEE BELOW GENERAL: Patient is sitting on edge of bed. No respiratory distress noted. Alert and oriented. HEENT: PERRL. No scleral icterus noted. CV: S1S2 RRR, no murmurs, rubs or gallops. LUNGS: Clear to auscultation in all lung parks. No wheezing or rales appreciated. ABDOMEN: Obese, soft and nontender to palpation. Bowel sounds heard in all 4 quadrants. EXTREMITIES: bilateral 2+ pitting edema of LE up to mid calf. No cyanosis. PSYCH: normal mood and affect NEURO: alert and oriented x3, EOM intact. CN 2-12 intact. No dysarthria. ASSESSMENT/PLAN: Mr. Villa is a 69 year old male with PMH including gastric bypass, symptomatic bradycardia requiring a pacemaker placement 1 week ago, CAD requiring stent placement 4 weeks ago, atrial fibrillation, HTN, HLD. Pt presented to ED after feeling faint at a doctors appointment and admitting to dark red blood in stool. 1.Suspected upper GI Bleed: -EGD not indicated as per GI consultation (Dr. Sotomayor). No evidence of GI bleed currently. -Trend H&H -Discontinued Protonix drip, start on Protonix 40mg IV BID, likely transition to oral tomorrow if no recurrent bleeding -Continue Carafate 1 GM PO DAILY -Advance to full liquid diet today. Continue to advance diet as tolerated. -PT evaluation and treatment 2.Acute symptomatic anemia on chronic iron deficient anemia -Symptomatically improved this morning status post 1 unit PRBCs -Transfuse an additional unit of blood. -Continue ferrous sulfate 325mg tablet BID for chronic iron deficient anemia. 3. SOB, likely due to acute symptomatic anemia vs fluid overload -Furosemide IV 20 mg given due to increased swelling in bilateral LE and persistent dyspnea -Transfuse an additional unit of blood. Continue to monitor for fluid overload. -Expect improvement with Lasix therapy and another unit of blood. -CXR on admission showed mild cardiomegaly, mild bibasilar atelectasis/infiltrate with small bilateral effusions. 4.Afib w/ pacemaker -Previously on Xarelto, discontinued during recent admission for GI bleed -Restart metoprolol succinate 25mg daily 5.CAD w/ stent placement -Recent stent placed approx. 4 weeks ago at [facility] -Continue clopidogrel bisulfate 75mg PO daily -Contraindicated to hold Plavix w/ history of recent stent placement 6.HTN -BP 207/80 last night and was given 2 doses of IV Labetalol 5mg, BP now stable 163/72 -Continue Lisinopril 20mg tablet PO daily -Continue amlodipine besylate 5mg tablet PO QHS -Restart metoprolol succinate 25mg daily 7.HLD -Continue Atorvastatin Calcium 40mg table PO QHS 8.Lumbar radiculopathy -Hold gabapentin 9.Unspecified dementia -Hold memantine 10.Unspecified mood disorder -Hold Paroxetine DVT PROPHYLAXIS: TEDS & SCDS, no chemical prophylaxis due to GI bleed. DISPOSITION: pending clinical improvement, PT/OT eval, possible discharge in the next 24-48 hours VS,Fishbone, I+O VS, Fishbone, I+O Laboratory Tests 12/31/19 11:36 12/31/19 23:22 01/01/20 05:36 Vital Signs Date Time Temp Pulse Resp B/P (MAP) Pulse Ox O2 Delivery O2 Flow Rate FiO2 01/01/20 10:24 98.6 60 20 163/72 Room Air 01/01/20 07:46 98 I&O- Last 24 Hours up to 6 AM 01/01/20 06:00 Intake Total 1800 ml Output Total 750 ml Balance 1050 ml GME ATTESTATION GME ATTESTATION My faculty preceptor for this patient encounter was physically present during the encounter and was fully available. All aspects of the patient interview, examination, medical decision making process, and medical care plan development were reviewed and approved by the faculty preceptor. The faculty preceptor is aware and concurs with the plan as stated in the body of this note and will attest to such by his/her cosignature. ATTENDING NOTE I, Carlotta Hidalgo, have independently examined this patient and performed my own physical exam, as well as reviewed the documentation and edited where necessary. I have discussed in detail with the resident / student the findings and plan of treatment as documented by the resident / student and edited their note. I agree with their findings and treatment plan and have edited their documentation. I will continue to follow the patient during this hospital stay. CARLEY ZACARIAS D.O. Jan 01, 2020 11:07 CARLOTTA HIDALGO MD Jan 01, 2020 12:44
[2020-01-01] MEDS: ATORVASTATIN 20 MG TAB PO SCH (20:38)
[2020-01-01] MEDS: amLODIPine 5 MG TAB PO SCH (20:39)
[2020-01-01] MEDS: PANTOPRAZOLE 40MG VIAL (C9113 PER 1) IV SCH (20:39)
[2020-01-02] VITALS: BP 142/70
[2020-01-02 04:00] VITALS: BP 134/76
[2020-01-02 05:51] LABS: HEMATOCRIT 34.7 % (42.0-52.0); HEMOGLOBIN 10.5 g/dl (13.5-17.5); MEAN CORPUSCULAR HEMOGLOBIN 26.9 pg (27.0-33.0); MEAN CORPUSCULAR HGB CONC 30.3 g/dl (32.0-36.5); PLATELET COUNT, AUTOMATED 351 10^3/uL (150-450); WHITE BLOOD COUNT 7.7 10^3/uL (4.0-10.0)
[2020-01-02 06:07] LABS: BLOOD UREA NITROGEN 9 MG/DL (7-18); CALCIUM LEVEL 8.5 MG/DL (8.8-10.2); CARBON DIOXIDE LEVEL 29 MEQ/L (21-32); CHLORIDE LEVEL 110 MEQ/L (98-107); CREATININE FOR GFR 1.01 MG/DL (0.70-1.30); GLOMERULAR FILTRATION RATE > 60.0 (>49); GLUCOSE, FASTING 96 MG/DL (70-100); MAGNESIUM LEVEL 2.1 MG/DL (1.8-2.4); POTASSIUM SERUM 3.4 MEQ/L (3.5-5.1); SODIUM LEVEL 144 MEQ/L (136-145)
[2020-01-02] MEDS: IPRATROPIUM 0.5MG/ALBUTEROL 2.5MG INH SOL UD 3ML (DUONEB) NEB PRN ×2 (07:11→10:58)
[2020-01-02] MEDS ORDERED: POTASSIUM CHLORIDE 10 MEQ SR TABLET PO ONE (07:45)
[2020-01-02 08:00] VITALS: BP 202/90
[2020-01-02] MEDS: PANTOPRAZOLE 40MG VIAL (C9113 PER 1) IV SCH (08:05)
[2020-01-02 08:07] VITALS: BP 202/90
[2020-01-02] MEDS: SUCRALFATE 1 GM TAB PO SCH ×2 (08:07→11:09)
[2020-01-02] MEDS: CLOPIDOGREL 75 MG TAB PO SCH (08:07)
[2020-01-02] MEDS: FERROUS SULFATE 325MG TAB PO SCH (08:07)
[2020-01-02] MEDS: lisinopriL 20 MG TAB PO SCH (08:07)
[2020-01-02] MEDS ORDERED: METOPROLOL SUCC *XL* 25MG TAB (TopROL *XL*) PO SCH (09:00)
[2020-01-02] MEDS ORDERED: PANT40TA29 PO (10:10)
[2020-01-02] MEDS ORDERED: FUROSEMIDE 20MG/2ML VIAL (J1940) IV ONE (10:45)
[2020-01-02 12:00] VITALS: BP 170/74
[2020-01-02] MEDS ORDERED: FURO20TA2 PO (15:02)
--- NOTE | 2020-01-02 15:05 | DS.PDOC ---
Discharge Summary General Date of Admission Dec 31, 2019 at 15:01 Date of Discharge December Attending Physician: CARLOTTA HIDALGO MD Specialist/Consultants Involve: MYLA LACKEY MD Discharge Summary PROCEDURES PERFORMED DURING STAY: None. ADMITTING DIAGNOSES: 1. Suspected upper GI bleed 2. Acute symptomatic anemia on chronic iron deficient anemia 3. SOB, likely due to acute symptomatic anemia 4. Afib w/ pacemaker 5. CAD w/ stent placement 6. HTN 7. HLD 8. Lumbar radiculopathy 9. Unspecified dementia 10. Unspecified mood disorder DISCHARGE DIAGNOSES: 1. Suspected upper GI bleed 2. Acute symptomatic anemia on chronic iron deficient anemia 3. SOB, likely due to acute symptomatic anemia vs. fluid overload 4. Afib w/ pacemaker 5. CAD w/ stent placement 6. HTN 7. HLD 8. Lumbar radiculopathy 9. Unspecified dementia 10. Unspecified mood disorder 11. Acute blood loss anemia 12. Obesity, BMI 42 COMPLICATIONS/CHIEF COMPLAINT: Suspected GI Bleed, SOB HISTORY OF PRESENT ILLNESS: Christian Villa is a 69 y/o male presenting with blood in his stool of 4 days duration. Patients PMH is significant for a gastric bypass in 2009, atrial fibrillation w/ pacemaker, HTN, HLD, and CAD with stent placement 4 weeks ago. Pt was recently admitted (12/17/19-12/24/19) in which a pacemaker was placed due to symptomatic bradycardia and an EGD was done which showed areas of erosion, localized moderate inflammation with hemorrhage and deep ulcerations in gastric fundus. Clip (MR conditional) was placed. An angiography with coiling of a gastric artery was also done during this admission for persistent bleed. Pt admits to dark stool starting 4 days ago progressing to black currently with bright red blood when wiping this morning. Pt states he suddenly felt weak at a doctors appointment this morning which prompted his ED visit. He also admits to feeling faint, light headed, dizzy, blurry vision, SOB on exertion, and palpitation over the past few days. He notes he has had some leg swelling since his recent hospital discharge, but it has improved. Pt was found to have a hemoglobin of 8.5 and Hct of 28.8 on arrival to ED. Pt was given an IV Bolus of NS, Pantoprazole sodium 40 mg IV, and 3 units of paced RBCs were ordered. HOSPITAL COURSE: Patient was admitted to the hospital and a GI consultation was placed to evaluate for suspected GI bleed. CXR on admission showed mild cardiomegaly, mild bibasilar atelectasis/infiltrate with small bilateral effusions and CT abdomen on admission showed no acute abnormalities in abdomen or pelvis. Per GI recommendation (Dr. Lackey), EGD was not indicated as there is no evidence of a GI bleed currently. He was initially started on Protonix drip and later changed to Protonix 40 mg IV BID. Full liquid diet and all oral home medications were started at this time. On hospital day #2, the patient was experiencing increased SOB and edema in bilateral LE. He was given IV Furosemide 20 mg and a second unit of packed RBCs. Hemoglobin and Hematocrit were monitored which improved after both units of blood to hemoglobin of 10.5 and hematocrit of 34.7. Patient reports much improvement from presenting symptoms of dizziness and shortness of breath. Patient was found to be stable and discharge home on oral Lasix 20mg daily and increased dose of Pantoprazole 40mg BID with GI follow-up with Dr. Lackey. DISCHARGE MEDICATIONS: Please see below. ALLERGIES: Please see below. PHYSICAL EXAMINATION ON DISCHARGE: VITAL SIGNS: Please see below. GENERAL: Patient is sitting in chair. No respiratory distress noted. Alert and oriented. HEENT: PERRL. No scleral icterus noted. NECK: No lymphadenopathy present. CARDIOVASCULAR EXAMINATION: S1S2 RRR, no murmurs, rubs or gallops. ABDOMINAL EXAMINATION: Obese, soft and nontender to palpation. Bowel sounds heard in all 4 quadrants. EXTREMITIES: Bilateral 2+ pitting edema of LE up to mid calf. No cyanosis. SKIN: No rashes or wounds. NEUROLOGICAL EXAMINATION: EOM intact. CN 2-12 intact. No dysarthria. PSYCHIATRIC EXAMINATION: alert and oriented x3, normal mood and affect. LABORATORY DATA: please see below. IMAGING: - CXR 12/31/19: Mild cardiomegaly. Mild bibasilar atelectasis/infiltrate with small bilateral effusions. - CT Abdomen/Pelvis 12/31/19: Small bilateral pleural effusions with adjacent bibasilar atelectasis/infiltrate. No acute abnormalities in the abdomen or pelvis. PROGNOSIS: Fair ACTIVITY: [As tolerated] DIET: Regular diet. DISCHARGE PLAN/DISPOSITION: Home with outpatient GI follow-up. DISCHARGE INSTRUCTIONS: 1. Follow-up with your PCP in 7-10 days. 2. Follow up with , GI, in 1 week. 3. Take all your medications as prescribed. 4. If your symptoms return or your condition worsens, please call your PCP or return to the ED for further evaluation. ITEMS TO FOLLOWUP ON OUTPATIENT: None DISCHARGE CONDITION: [Stable] TIME SPENT ON DISCHARGE: 35 minutes. Vital Signs/I&Os Vital Signs Date Time Temp Pulse Resp B/P (MAP) Pulse Ox O2 Delivery O2 Flow Rate FiO2 01/02/20 12:00 97.8 81 19 170/74 (106) 94 Room Air I&O- Last 24 Hours up to 6 AM 01/02/20 06:00 Intake Total 1840 ml Output Total 3375 ml Balance -1535 ml Laboratory Data Labs 24H Laboratory Tests 2 01/02/20 05:15: Nucleated Red Blood Cells % (auto) 0.0, Anion Gap 5L, Glomerular Filtration Rate > 60.0, Calcium Level 8.5L, Magnesium Level 2.1 CBC/BMP Laboratory Tests 01/02/20 05:15 Discharge Medications Scheduled Amlodipine Besylate (Amlodipine Besylate) 5 Mg Tablet, 5 MG PO QHS, (Reported) Atorvastatin Calcium (Atorvastatin Calcium) 40 Mg Tablet, 40 MG PO QHS, (Reported) Clopidogrel Bisulfate (Clopidogrel) 75 Mg Tablet, 75 MG PO DAILY, (Reported) Ferrous Sulfate (Ferrous Sulfate) 325 Mg Tablet, 325 MG PO DAILY, (Reported) Furosemide (Furosemide) 20 Mg Tablet, 1 TAB PO DAILY Gabapentin (Gabapentin) 300 Mg Capsule, 300 MG PO QHS, (Reported) Lisinopril (Lisinopril) 20 Mg Tablet, 20 MG PO DAILY, (Reported) Memantine HCl (Memantine HCl) 5 Mg Tablet, 5 MG PO BID, (Reported) Metoprolol Succinate (Metoprolol Succinate) 25 Mg Tab.er.24h, 25 MG PO DAILY, (Reported) Pantoprazole Sodium (Pantoprazole Sodium) 40 Mg Tablet.dr, 40 MG PO BID Paroxetine HCl (Paroxetine HCl) 20 Mg Tablet, 20 MG PO DAILY, (Reported) Pedi Multivit No.7/Folic Acid (Flintstones Tab Chew) 100 Mcg Tab.chew, 1 CHW PO DAILY, (Reported) Sucralfate (Sucralfate) 1 Gm Tablet, 1 GM PO ACHS, (Reported) Scheduled PRN Gabapentin (Gabapentin) 300 Mg Capsule, 300 MG PO DAILY PRN for PAIN, (Reported) Nitroglycerin (Nitrostat) 0.4 Mg Tab.subl, 0.4 MG SL NITRO PRN for CHEST PAIN, (Reported) Allergies Coded Allergies: No Known Allergies (Unverified , 12/17/19) GME ATTESTATION GME ATTESTATION My faculty preceptor for this patient encounter was physically present during the encounter and was fully available. All aspects of the patient interview, examination, medical decision making process, and medical care plan development were reviewed and approved by the faculty preceptor. The faculty preceptor is aware and concurs with the plan as stated in the body of this note and will attest to such by his/her cosignature. ATTENDING NOTE I, Carlotta Hidalgo, have independently examined this patient and performed my own physical exam, as well as reviewed the documentation and edited where necessary. I have discussed in detail with the resident / student the findings and plan of treatment as documented by the resident / student and edited their note. I agree with their findings and treatment plan and have edited their documentation. I will continue to follow the patient during this hospital stay. Time spent on discharge 35 minutes DIPAK ZACARIAS MD Jan 02, 2020 15:05 CARLOTTA HIDALGO MD Jan 02, 2020 15:55
== END 2020-01-02 15:09 | disposition home or self-care (01) | DRG 378 ==
LOC: M ED 10:13 → M ED INP 15:01 → ENRESERV 15:13 → M PCU 16:55
PROVIDERS: ADMIT Internal Medicine; ATTEND Internal Medicine
PROC: 30233N1 Transfusion of Nonautologous Red Blood Cells into Peripheral Vein, Percutaneous Approach (ICD-10-PCS; principal; 2019-12-31)
DX: K92.2 Gastrointestinal hemorrhage, unspecified (principal); D62 Acute posthemorrhagic anemia; Z68.41 Body mass index [BMI] 40.0-44.9, adult; I48.91 Unspecified atrial fibrillation; F03.90 Unspecified dementia, unspecified severity, without behavioral disturbance, psychotic disturbance, mood disturbance, and anxiety; I10 Essential (primary) hypertension; E78.5 Hyperlipidemia, unspecified; F39 Unspecified mood [affective] disorder; I25.10 Atherosclerotic heart disease of native coronary artery without angina pectoris; M54.16 Radiculopathy, lumbar region; D50.9 Iron deficiency anemia, unspecified; E66.9 Obesity, unspecified; Z95.5 Presence of coronary angioplasty implant and graft; Z95.0 Presence of cardiac pacemaker; Z98.84 Bariatric surgery status; Z90.49 Acquired absence of other specified parts of digestive tract; Z98.41 Cataract extraction status, right eye; Z98.42 Cataract extraction status, left eye; Z79.02 Long term (current) use of antithrombotics/antiplatelets; Z79.899 Other long term (current) drug therapy; Z20.828 Contact with and (suspected) exposure to other viral communicable diseases

== ENCOUNTER 2020-07-07 07:42 | Emergency (ER) | payer MEDICARE ==
[~2020-07-07] VITALS: Ht 167.6 cm; Wt 113.6 kg
[2020-07-07 07:42] VITALS: BP 185/81
[~2020-07-07 07:42] MED LIST changes: +ASPI81CH33 PO; +CALC1TAB30 PO; +FERR1TAB8 PO; +FURO20TA2 PO; +GABA-282 PO; -GABA-843 PO; +GLYCCAP PO; +ISOS1TAB35 PO; -ISOS30TA4 PO; -LISI-538 PO; +LISI20TA33 PO; +NOXI1TAB PO; +PANT40TA29 PO; +SUCR1TAB56 PO; +THERTAB52 PO
[2020-07-07] MEDS ORDERED: PERCOCET 5MG/325MG TAB PO ONE (08:35)
--- NOTE | 2020-07-07 08:45 | REP ---
INDICATION: trauma COMPARISON: None. TECHNIQUE: AP, lateral, bilateral oblique and sunrise views. FINDINGS: Osteopenia and advanced tricompartmental osteoarthritic degenerative changes are appreciated. Overlying soft tissue swelling noted. Small effusion cannot be excluded. No obvious acute fracture or dislocation.. IMPRESSION: 1. Osteopenia and advanced degenerative changes. 2. Soft tissue/prepatellar swelling. 3. No obvious acute fracture or dislocation. <Electronically signed by Benjy Crenshaw > 07/07/20 [id number]
[2020-07-07 09:17] LABS: HEMATOCRIT 44.3 % (42.0-52.0); HEMOGLOBIN 14.3 g/dl (13.5-17.5); MEAN CORPUSCULAR HEMOGLOBIN 30.5 pg (27.0-33.0); MEAN CORPUSCULAR HGB CONC 32.3 g/dl (32.0-36.5); MEAN CORPUSCULAR VOLUME 94.5 fl (80.0-96.0); PLATELET COUNT, AUTOMATED 230 10^3/uL (150-450); RED BLOOD COUNT 4.69 10^6/uL (4.30-6.10); WHITE BLOOD COUNT 10.2 10^3/uL (4.0-10.0)
[2020-07-07] MEDS ORDERED: ROLLMIS8 XX (10:37)
== END 2020-07-07 10:49 | disposition home or self-care (01) ==
LOC: M ED 07:42
DX: M25.061 Hemarthrosis, right knee (principal); W17.89XA Other fall from one level to another, initial encounter; Y92.9 Unspecified place or not applicable; Y93.9 Activity, unspecified; Y99.9 Unspecified external cause status; I10 Essential (primary) hypertension; I48.91 Unspecified atrial fibrillation; Z79.01 Long term (current) use of anticoagulants; Z79.82 Long term (current) use of aspirin; Z79.899 Other long term (current) drug therapy

== ENCOUNTER → 2020-11-11 | Outpatient (CLI) | payer MEDICARE ==
[~2020-11-11] MED LIST changes: +ACET32TAB PO; +CYAN500T14 PO; +D31000TA2 PO; +OMEP40CA4 PO; -OMEP40CA97 PO; +ROLLMIS8 XX
== END ==
LOC: M LABSMTC 11:47
PROVIDERS: ATTEND Anesthesiology
DX: Z01.818 Encounter for other preprocedural examination (principal); Z11.52 Encounter for screening for COVID-19

== ENCOUNTER 2020-11-16 06:57 | Day surgery (SDC) | payer MEDICARE ==
[~2020-11-16] VITALS: Ht 165.1 cm; Wt 124.3 kg
[~2020-11-16 06:57] MED LIST changes: +NS 1,000 ML IV ONE
[2020-11-16] MEDS ORDERED: LIDOCAINE 2% 100MG/5ML SDV (FOR ANES.) As Ordered ONE (07:19)
[2020-11-16] MEDS ORDERED: fentaNYL 100 MCG/2 ML INJECTION (J3010) As Ordered ONE (07:19)
[2020-11-16] MEDS ORDERED: propofoL 500 MG/50 ML VIAL As Ordered ONE (07:19)
--- NOTE | 2020-11-16 08:55 | ROOR ---
Patient Name: Christian Villa Procedure Date: 11/16/2020 8:02 AM Date of : 1950 Age: 70 Room: [facility] Gender: Male Note Status: Finalized Procedure: Upper GI endoscopy Indications: Follow-up of ulcer of the GI tract Providers: Dustin Sotomayor MD Referring MD: Rich Paige MD Requesting Provider: Medicines: Monitored Anesthesia Care Complications: No immediate complications. Procedure: Pre-Anesthesia Assessment: - Prior to the procedure, a History and Physical was performed, and patient medications and allergies were reviewed. The patient is competent. The risks and benefits of the procedure and the sedation options and risks were discussed with the patient. All questions were answered and informed consent was obtained. Patient identification and proposed procedure were verified by the physician, the nurse and the anesthesiologist in the procedure room. Mental Status Examination: alert and oriented. Airway Examination: normal oropharyngeal airway and neck mobility. Respiratory Examination: clear to auscultation. CV Examination: normal. Prophylactic Antibiotics: The patient does not require prophylactic antibiotics. Prior Anticoagulants: The patient has taken Xarelto (rivaroxaban), last dose was 2 days prior to procedure. ASA Grade Assessment: III - A patient with severe systemic disease. After reviewing the risks and benefits, the patient was deemed in satisfactory condition to undergo the procedure. The anesthesia plan was to use monitored anesthesia care (MAC). Immediately prior to administration of medications, the patient was re-assessed for adequacy to receive sedatives. The heart rate, respiratory rate, oxygen saturations, blood pressure, adequacy of pulmonary ventilation, and response to care were monitored throughout the procedure. The physical status of the patient was re-assessed after the procedure. The Endoscope was introduced through the mouth, and advanced to the second part of duodenum. The upper GI endoscopy was accomplished without difficulty. The patient tolerated the procedure well. Findings: The examined esophagus was normal. The Z-line was irregular and was found 41 cm from the incisors. Scattered moderate inflammation characterized by friability and granularity was found in the gastric body. Biopsies were taken with a cold forceps for Helicobacter pylori testing. Verification of patient identification for the specimen was done by the physician and nurse using the patient's name, date and medical record number. Estimated blood loss was minimal. Evidence of an antrectomy and gastrojejunostomy were found in the gastric body. This was characterized by healthy appearing mucosa. The examined jejunum was normal. Impression: - Normal esophagus. - Z-line irregular, 41 cm from the incisors. - Gastritis. Biopsied. - An antrectomy and gastrojejunostomy was found, characterized by healthy appearing mucosa. - Normal examined jejunum. Recommendation: - Patient has a contact number available for emergencies. The signs and symptoms of potential delayed complications were discussed with the patient. Return to normal activities tomorrow. Written discharge instructions were provided to the patient. - High fiber diet and Post gastric bypass diet (small frequent meals and avoid fatty/ fried foods). - Continue present medications. - Follow an antireflux regimen. - Await pathology results. - Telephone GI clinic for pathology results in 2 weeks. - Return to primary care physician. - Return to GI clinic if persistent symptoms or new symptoms. Procedure Code(s): --- Professional --- 06475, Esophagogastroduodenoscopy, flexible, transoral; with biopsy, single or multiple Diagnosis Code(s): --- Professional --- K22.8, Other specified diseases of esophagus K29.70, Gastritis, unspecified, without bleeding Z90.3, Acquired absence of stomach [part of] Z98.0, Intestinal bypass and anastomosis status K28.9, Gastrojejunal ulcer, unspecified as acute or chronic, without hemorrhage or perforation CPT copyright 2019 [employer]. All rights reserved. The codes documented in this report are preliminary and upon rendering equipment tender review may be revised to meet current compliance requirements. Dustin Sotomayor MD Dustin Sotomayor MD 11/16/2020 8:54:38 AM Electronically signed by Dustin Sotomayor MD Number of Addenda: 0 Note Initiated On: 11/16/2020 8:02 AM Estimated Blood Loss: Estimated blood loss: none.
--- NOTE | 2020-11-16 08:59 | ROOR ---
Patient Name: Christian Villa Procedure Date: 11/16/2020 8:03 AM Date of : 1950 Age: 70 Room: [facility] Gender: Male Note Status: Finalized Procedure: Colonoscopy Indications: Screening for colorectal malignant neoplasm Providers: Dustin Sotomayor MD Referring MD: Rich Paige MD Requesting Provider: Medicines: Monitored Anesthesia Care Complications: No immediate complications. Procedure: Pre-Anesthesia Assessment: - Prior to the procedure, a History and Physical was performed, and patient medications and allergies were reviewed. The patient is competent. The risks and benefits of the procedure and the sedation options and risks were discussed with the patient. All questions were answered and informed consent was obtained. Patient identification and proposed procedure were verified by the physician, the nurse and the anesthesiologist in the procedure room. Mental Status Examination: alert and oriented. Airway Examination: normal oropharyngeal airway and neck mobility. Respiratory Examination: clear to auscultation. CV Examination: normal. Prophylactic Antibiotics: The patient does not require prophylactic antibiotics. Prior Anticoagulants: The patient has taken Xarelto (rivaroxaban), last dose was 2 days prior to procedure. ASA Grade Assessment: III - A patient with severe systemic disease. After reviewing the risks and benefits, the patient was deemed in satisfactory condition to undergo the procedure. The anesthesia plan was to use monitored anesthesia care (MAC). Immediately prior to administration of medications, the patient was re-assessed for adequacy to receive sedatives. The heart rate, respiratory rate, oxygen saturations, blood pressure, adequacy of pulmonary ventilation, and response to care were monitored throughout the procedure. The physical status of the patient was re-assessed after the procedure. The Colonoscope was introduced through the anus and advanced to the terminal ileum, with identification of the appendiceal orifice and IC valve. The colonoscopy was performed without difficulty. The patient tolerated the procedure well. The quality of the bowel preparation was good and good except the ascending colon was fair. The terminal ileum, ileocecal valve, appendiceal orifice, and rectum were photographed. Scope insertion time was 2 minutes. Scope withdrawal time was 9 minutes. The total duration of the procedure was 12 minutes. Findings: The perianal and digital rectal examinations were normal. The terminal ileum appeared normal. Multiple sessile polyps were found in the recto-sigmoid colon, transverse colon and ascending colon. The polyps were 3 to 10 mm in size. These polyps were removed with a cold snare. Resection and retrieval were complete. Verification of patient identification for the specimen was done by the physician and nurse using the patient's name, date and medical record number. Estimated blood loss was minimal. Multiple small-mouthed diverticula were found in the sigmoid colon. There was no evidence of diverticular bleeding. Non-bleeding external and internal hemorrhoids were found during retroflexion. The hemorrhoids were large. Impression: - The examined portion of the ileum was normal. - Multiple 3 to 10 mm polyps at the recto-sigmoid colon, in the transverse colon and in the ascending colon, removed with a cold snare. Resected and retrieved. - Mild diverticulosis in the sigmoid colon. There was no evidence of diverticular bleeding. - Non-bleeding external and internal hemorrhoids. Recommendation: - Patient has a contact number available for emergencies. The signs and symptoms of potential delayed complications were discussed with the patient. Return to normal activities tomorrow. Written discharge instructions were provided to the patient. - High fiber diet and Post gastric surgery diet (small frequent meals and avoid fatty/ fried foods). - Continue present medications. - Await pathology results. - Resume Xarelto (rivaroxaban) at prior dose today. - Await pathology results. - Repeat colonoscopy in 1 year because the bowel preparation was suboptimal and for surveillance of multiple polyps. - Telephone GI clinic for pathology results in 2 weeks. - Return to GI clinic if persistent symptoms or new symptoms. - Return to primary care physician. Procedure Code(s): --- Professional --- 07920, Colonoscopy, flexible; with removal of tumor(s), polyp(s), or other lesion(s) by snare technique Diagnosis Code(s): --- Professional --- Z12.11, Encounter for screening for malignant neoplasm of colon K64.8, Other hemorrhoids K63.5, Polyp of colon K57.30, Diverticulosis of large intestine without perforation or abscess without bleeding CPT copyright 2019 [employer]. All rights reserved. The codes documented in this report are preliminary and upon narrow gauge engineer review may be revised to meet current compliance requirements. Dustin Sotomayor MD Dustin Sotomayor MD 11/16/2020 8:59:05 AM Electronically signed by Dustin Sotomayor MD Number of Addenda: 0 Note Initiated On: 11/16/2020 8:03 AM Estimated Blood Loss: Estimated blood loss was minimal.
[2020-11-16 09:05] VITALS: BP 141/65
== END 2020-11-16 09:25 | disposition home or self-care (01) ==
LOC: M OPP 06:57
PROVIDERS: ATTEND Internal Medicine Gastroenterology
DX: Z12.11 Encounter for screening for malignant neoplasm of colon (principal); Z80.0 Family history of malignant neoplasm of digestive organs; D12.6 Benign neoplasm of colon, unspecified; K57.30 Diverticulosis of large intestine without perforation or abscess without bleeding; K64.8 Other hemorrhoids; K22.89 Other specified disease of esophagus; K29.70 Gastritis, unspecified, without bleeding; Z90.3 Acquired absence of stomach [part of]; Z98.0 Intestinal bypass and anastomosis status; K28.9 Gastrojejunal ulcer, unspecified as acute or chronic, without hemorrhage or perforation; Z95.5 Presence of coronary angioplasty implant and graft; Z95.0 Presence of cardiac pacemaker; Z79.84 Long term (current) use of oral hypoglycemic drugs; Z79.899 Other long term (current) drug therapy
CPT/HCPCS: 43239; 45385; 88305; J3010

== ENCOUNTER → 2022-06-21 | Outpatient (CLI) | payer MEDICARE ==
[~2022-06-21] MED LIST changes: +CLOT10TR; -D31000TA2 PO; +GABA-1171 PO; +LISI10TA22 PO; -NS 1,000 ML IV ONE; +PERI12LIQ; +PRED5TA PO; +VITA100093 PO; +ZYTI250T PO
== END ==
LOC: M ONCR 10:24
PROVIDERS: ATTEND General Practice
DX: C61 Malignant neoplasm of prostate (principal); N52.9 Male erectile dysfunction, unspecified; I10 Essential (primary) hypertension; F32.A Depression, unspecified; I48.91 Unspecified atrial fibrillation; Z98.84 Bariatric surgery status; F41.9 Anxiety disorder, unspecified; Z95.0 Presence of cardiac pacemaker; Z80.0 Family history of malignant neoplasm of digestive organs; Z84.1 Family history of disorders of kidney and ureter; Z77.090 Contact with and (suspected) exposure to asbestos; Z77.098 Contact with and (suspected) exposure to other hazardous, chiefly nonmedicinal, chemicals; Z79.01 Long term (current) use of anticoagulants; Z79.899 Other long term (current) drug therapy; Z88.8 Allergy status to other drugs, medicaments and biological substances; Z79.818 Long term (current) use of other agents affecting estrogen receptors and estrogen levels

== ENCOUNTER 2022-06-28 13:44 | Outpatient (RCR) | payer MEDICARE ==
[2022-07-18] MEDS ORDERED: ZYTI250T PO (10:41)
== END 2022-07-13 ==
LOC: M ONCR 13:44
PROVIDERS: ATTEND General Practice
DX: C61 Malignant neoplasm of prostate (principal)

== ENCOUNTER → 2022-08-01 | Outpatient (CLI) | payer MEDICARE ==
[~2022-08-01] MED LIST changes: +AMLO1TAB25 PO; +AMOX875T2 PO; +AZIT-10 PO; +BENZ1LOZ9 PO; -CLOT10TR; +CLOT10TR PO; +FURO40TA2 PO; +METF-838 PO; -PERI12LIQ; +PERI12LIQ PO; +POTA-165 PO
== END ==
LOC: M RAD 15:28
PROVIDERS: ATTEND General Practice
DX: C61 Malignant neoplasm of prostate (principal); Z95.0 Presence of cardiac pacemaker

== ENCOUNTER 2022-08-02 10:46 | Inpatient (IN) | payer MEDICARE ==
[~2022-08-02] VITALS: Ht 167.6 cm; Wt 124.7 kg
[~2022-08-02 10:46] MED LIST changes: -AMLO1TAB25 PO; -AMOX875T2 PO; -BENZ1LOZ9 PO; -METF-838 PO; -POTA-165 PO
[2022-08-02] MEDS ORDERED: PIPERACILLIN/TAZOBACTAM SOD 4.5 GM in D5W MINI-BAG PLUS 50 ML IV ONE (11:25)
[2022-08-02] MEDS ORDERED: dexAMETHasone 20MG/5ML VIAL IV ONE (11:25)
[2022-08-02] MEDS ORDERED: ISOVUE-370 76% 100ML VIAL As Ordered ONE (11:46)
[2022-08-02 11:53] LABS: BASO % 0.1 % (0.0-1.0); EOS % 0.2 % (0.0-3.0); HEMATOCRIT 42.3 % (42.0-52.0); HEMOGLOBIN 13.9 g/dl (13.5-17.5); LYMPH # 0.4 10^3/uL (1.5-5.0); LYMPH % 3.6 % (24.0-44.0); MEAN CORPUSCULAR HEMOGLOBIN 29.8 pg (27.0-33.0); MEAN CORPUSCULAR HGB CONC 32.9 g/dl (32.0-36.5); MEAN CORPUSCULAR VOLUME 90.8 fl (80.0-96.0); MONO # 0.9 10^3/uL (0.0-0.8); MONO % 8.6 % (2.0-8.0); NEUTROPHILS # 8.6 10^3/uL (1.5-8.5); PLATELET COUNT, AUTOMATED 149 10^3/uL (150-450); RED BLOOD COUNT 4.66 10^6/uL (4.30-6.10); WHITE BLOOD COUNT 9.9 10^3/uL (4.0-10.0)
[2022-08-02 12:08] LABS: ABG BASE EXCESS 3.5 (-2.0-2.0); ABG HCO3 25.3 MMOL/L (22.0-26.0); ABG PARTIAL PRESSURE O2 89.5 mmHg (75.0-100.0); ABG STANDARD HCO3 27.6 MMOL/L. (22.0-26.0); ABG TOTAL CO2 26.2 MMOL/L (23.0-31.0); ABG pH (ARTERIAL) 7.544 UNITS (7.350-7.450)
[2022-08-02 12:18] LABS: CPK CREATINE PHOSPHOKINASE 74 U/L (46-171)
[2022-08-02 12:19] LABS: ALBUMIN 3.6 G/DL (3.2-5.2); ALKALINE PHOSPHATASE 103 U/L (46-116); ALT/SGPT 22 U/L (7.0-40); AST/SGOT 20 U/L (<34); BILIRUBIN,DIRECT 0.6 MG/DL (<0.4); BILIRUBIN,TOTAL 1.5 MG/DL (0.3-1.2); BLOOD UREA NITROGEN 15 MG/DL (9-23); CALCIUM LEVEL 8.5 MG/DL (8.3-10.6); CARBON DIOXIDE LEVEL 34 MMOL/L (20-31); CHLORIDE LEVEL 101 MMOL/L (98-107); CK-MB VALUE MASS < 1.0 NG/ML (<3.6); CREATININE FOR GFR 1.08 MG/DL (0.70-1.30); GLOMERULAR FILTRATION RATE > 60.0 (>42); GLUCOSE, FASTING 126 MG/DL (74-106); MB/CK RELATIVE INDEX 1.35 (< OR =4); POTASSIUM SERUM 3.1 MMOL/L (3.5-5.1); SODIUM LEVEL 143 MMOL/L (136-145)
[2022-08-02 12:23] LABS: THYROXINE (T4) 10.5 UG/DL (4.5-10.9)
[2022-08-02 12:24] LABS: THYROID STIMULATING HORMONE 0.767 uIU/ML (0.55-4.78)
[2022-08-02] MEDS ORDERED: KCL 10MEQ/100ML SWI (KRUN) 10 MEQ in IV 1 EA IV ONE (12:55)
[2022-08-02 13:35] LABS: CK-MB VALUE MASS < 1.0 NG/ML (<3.6)
[2022-08-02 13:39] LABS: MAGNESIUM LEVEL 1.8 MG/DL (1.8-2.4)
[2022-08-02 13:40] LABS: CPK CREATINE PHOSPHOKINASE 71 U/L (46-171)
[2022-08-02] MEDS ORDERED: VANCOMYCIN HCL 1,000 MG, VIAL MATE ADAPTER 1 EACH in D5W 250 ML IV SCH (14:40)
[2022-08-02] MEDS ORDERED: ALBUTEROL SULFATE 2.5MG/0.5ML INH NEB SOLN NEB PRN (14:40)
[2022-08-02 15:36] LABS: PROCALCITONIN 0.14
[2022-08-02] MEDS ORDERED: MED REC IN PROGRESS XX SCH (15:50)
[2022-08-02 16:30] VITALS: BP 163/73; TEMP 97.7; O2SAT 96
[2022-08-02] MEDS ORDERED: VANCOMYCIN HCL 1,000 MG, VIAL MATE ADAPTER 1 EACH in D5W 250 ML IV ONE ×7 (17:00→18:00)
[2022-08-02] MEDS ORDERED: HOME MED LIST COMPLETE! XX SCH (17:25)
[2022-08-02] MEDS ORDERED: RIVAROXABAN 20MG TAB (XARELTO) PO SCH (18:00)
[2022-08-02] MEDS: PANTOPRAZOLE 40MG VIAL IV SCH (18:14)
[2022-08-02] MEDS: PIPERACILLIN/TAZOBACTAM SOD 4.5 GM in D5W MINI-BAG PLUS 50 ML IV SCH ×2 (18:14→23:57)
[2022-08-02 19:00] VITALS: O2SAT 94
[2022-08-02] MEDS ORDERED: PIPERACILLIN/TAZOBACTAM SOD 3.375 GM in D5W MINI-BAG PLUS 50 ML IV SCH (20:00)
[2022-08-02] MEDS: VANCOMYCIN HCL 1,000 MG, VIAL MATE ADAPTER 1 EACH in D5W 250 ML IV SCH (20:24)
[2022-08-02] MEDS: methylPREDNISolone 125MG 2ML VIAL IV SCH (20:24)
[2022-08-02 20:27] VITALS: BP 137/66; TEMP 97.3; O2SAT 95
[2022-08-02 21:00] VITALS: O2SAT 93
[2022-08-02 22:00] VITALS: BP 93/47; O2SAT 93
[2022-08-02 23:00] VITALS: O2SAT 94
[2022-08-03] VITALS (18 sets, daily range): BP systolic 107–179; BP diastolic 52–80; TEMP 97–98.2; O2SAT 90–99
[2022-08-03] MEDS: methylPREDNISolone 125MG 2ML VIAL IV SCH (03:31)
[2022-08-03 05:26] LABS: BASO % 0.1 % (0.0-1.0); HEMOGLOBIN 14.2 g/dl (13.5-17.5); LYMPH # 0.3 10^3/uL (1.5-5.0); LYMPH % 2.4 % (24.0-44.0); MEAN CORPUSCULAR HEMOGLOBIN 29.6 pg (27.0-33.0); MEAN CORPUSCULAR VOLUME 89.6 fl (80.0-96.0); MONO # 0.4 10^3/uL (0.0-0.8); MONO % 3.6 % (2.0-8.0); NEUTROPHILS # 9.8 10^3/uL (1.5-8.5); NEUTROPHILS % 93.2 % (36.0-66.0); PLATELET COUNT, AUTOMATED 156 10^3/uL (150-450); WHITE BLOOD COUNT 10.5 10^3/uL (4.0-10.0)
[2022-08-03 05:53] LABS: BLOOD UREA NITROGEN 23 MG/DL (9-23); CALCIUM LEVEL 8.8 MG/DL (8.3-10.6); CARBON DIOXIDE LEVEL 32 MMOL/L (20-31); CHLORIDE LEVEL 100 MMOL/L (98-107); CREATININE FOR GFR 1.08 MG/DL (0.70-1.30); GLOMERULAR FILTRATION RATE > 60.0 (>42); GLUCOSE, FASTING 177 MG/DL (74-106); MAGNESIUM LEVEL 1.9 MG/DL (1.8-2.4); POTASSIUM SERUM 3.2 MMOL/L (3.5-5.1); SODIUM LEVEL 141 MMOL/L (136-145)
[2022-08-03] MEDS: PIPERACILLIN/TAZOBACTAM SOD 4.5 GM in D5W MINI-BAG PLUS 50 ML IV SCH ×3 (05:54→17:19)
[2022-08-03] MEDS: KCL 10MEQ/100ML SWI (KRUN) 10 MEQ in IV 1 EA IV SCH ×6 (07:42→17:28)
[2022-08-03] MEDS: VANCOMYCIN HCL 1,000 MG, VIAL MATE ADAPTER 1 EACH in D5W 250 ML IV SCH ×2 (08:37→20:33)
[2022-08-03] MEDS: PANTOPRAZOLE 40MG VIAL IV SCH (08:37)
[2022-08-03] MEDS ORDERED: PARoxetine 20MG TABLET PO SCH (09:00)
[2022-08-03] MEDS ORDERED: GABAPENTIN 100 MG CAP PO SCH (09:00)
[2022-08-03] MEDS ORDERED: FUROSEMIDE 40 MG TAB PO SCH (09:00)
[2022-08-03] MEDS ORDERED: METOPROLOL SUCC *XL* 12.5MG PER 1/2 TAB (TopROL *XL*) PO SCH (09:00)
[2022-08-03] MEDS ORDERED: MEMANTINE 5MG TABLET (NAMENDA) PO SCH (09:00)
[2022-08-03] MEDS ORDERED: MORPHINE 2 MG/ML 1ML VIAL IV STA (10:10)
[2022-08-03] MEDS ORDERED: MORPHINE 2 MG/ML 1ML VIAL As Ordered ONE (10:12)
[2022-08-03] MEDS ORDERED: amLODIPine 5 MG TAB PO SCH ×2 (10:40→21:00)
[2022-08-03 12:04] LABS: BLOOD UREA NITROGEN 25 MG/DL (9-23); CALCIUM LEVEL 8.6 MG/DL (8.3-10.6); CARBON DIOXIDE LEVEL 32 MMOL/L (20-31); CHLORIDE LEVEL 100 MMOL/L (98-107); CREATININE FOR GFR 1.12 MG/DL (0.70-1.30); GLOMERULAR FILTRATION RATE > 60.0 (>42); GLUCOSE, FASTING 215 MG/DL (74-106); POTASSIUM SERUM 3.1 MMOL/L (3.5-5.1); SODIUM LEVEL 139 MMOL/L (136-145)
[2022-08-03] MEDS ORDERED: FURO40TA2 PO (12:10)
[2022-08-03] MEDS ORDERED: FURO20TA2 PO (12:17)
[2022-08-03] MEDS ORDERED: hydrALAZINE 20MG/ML 1ML VIAL IV PRN (13:45)
[2022-08-03] MEDS ORDERED: LR 1,000 ML IV SCH (13:45)
[2022-08-03] MEDS ORDERED: HEPARIN SOD (PORCINE) 5000UNITS/ML 1ML VIAL/SYRINGE SQ SCH (14:00)
[2022-08-03] MEDS: methylPREDNISolone 40MG 1ML VIAL IV SCH (16:05)
[2022-08-03] MEDS: ENOXAPARIN 120MG/0.8ML SYRINGE SC SCH (17:17)
[2022-08-03] MEDS ORDERED: hydrALAZINE 20MG/ML 1ML VIAL IV ONE (17:50)
[2022-08-03] MEDS ORDERED: ATORVASTATIN 20 MG TAB PO SCH (21:00)
[2022-08-04] VITALS (12 sets, daily range): BP systolic 143–192; BP diastolic 67–93; TEMP 97–97.9; O2SAT 94–99
[2022-08-04] MEDS: PIPERACILLIN/TAZOBACTAM SOD 4.5 GM in D5W MINI-BAG PLUS 50 ML IV SCH ×2 (00:07→05:49)
[2022-08-04] MEDS: hydrALAZINE 20MG/ML 1ML VIAL IV PRN (00:18)
[2022-08-04] MEDS: methylPREDNISolone 40MG 1ML VIAL IV SCH (03:39)
[2022-08-04 04:47] LABS: HEMATOCRIT 42.4 % (42.0-52.0); HEMOGLOBIN 14.2 g/dl (13.5-17.5); MEAN CORPUSCULAR HEMOGLOBIN 30.2 pg (27.0-33.0); MEAN CORPUSCULAR HGB CONC 33.5 g/dl (32.0-36.5); MEAN CORPUSCULAR VOLUME 90.2 fl (80.0-96.0); PLATELET COUNT, AUTOMATED 225 10^3/uL (150-450); WHITE BLOOD COUNT 14.7 10^3/uL (4.0-10.0)
[2022-08-04 05:18] LABS: BLOOD UREA NITROGEN 31 MG/DL (9-23); CALCIUM LEVEL 9.7 MG/DL (8.3-10.6); CARBON DIOXIDE LEVEL 32 MMOL/L (20-31); CHLORIDE LEVEL 100 MMOL/L (98-107); CREATININE FOR GFR 1.18 MG/DL (0.70-1.30); GLOMERULAR FILTRATION RATE > 60.0 (>42); GLUCOSE, FASTING 169 MG/DL (74-106); MAGNESIUM LEVEL 2.2 MG/DL (1.8-2.4); POTASSIUM SERUM 3.8 MMOL/L (3.5-5.1); SODIUM LEVEL 140 MMOL/L (136-145)
[2022-08-04] MEDS: ENOXAPARIN 120MG/0.8ML SYRINGE SC SCH ×2 (05:49→17:42)
[2022-08-04] MEDS: PANTOPRAZOLE 40MG VIAL IV SCH (08:30)
[2022-08-04] MEDS: VANCOMYCIN HCL 1,000 MG, VIAL MATE ADAPTER 1 EACH in D5W 250 ML IV SCH (08:30)
[2022-08-04] MEDS ORDERED: ENTER DRUG NAME HERE (PATIENT'S OWN MED) PO SCH (09:00)
[2022-08-04] MEDS ORDERED: amLODIPine 5 MG TAB PO SCH (09:00)
[2022-08-04] MEDS ORDERED: VARIBAR NECTAR 40% w/v 240ML SUSP BTL As Ordered ONE (10:45)
[2022-08-04] MEDS ORDERED: VARIBAR PUDDING 40% w/v 230ML TUBE As Ordered ONE (10:45)
[2022-08-04] MEDS ORDERED: E-Z-PAQUE 96% w/w SUSP 176GM BTL As Ordered ONE (10:45)
[2022-08-04] MEDS ORDERED: BARIUM SULFATE 700 MG TABLET (E-Z-DISK) As Ordered ONE (10:45)
[2022-08-04] MEDS: ATORVASTATIN 20 MG TAB PO SCH (13:51)
[2022-08-04] MEDS: AUGMENTIN 875 MG TAB PO SCH ×2 (13:51→20:24)
[2022-08-04] MEDS: MEMANTINE 5MG TABLET (NAMENDA) PO SCH (13:51)
[2022-08-04] MEDS: predniSONE 20 MG TAB PO SCH (13:51)
[2022-08-04] MEDS: GABAPENTIN 100 MG CAP PO SCH ×2 (13:51→20:23)
[2022-08-04] MEDS: PARoxetine 10MG/5ML SUSP ORAL SYRINGE *DRAW UP EXACT DOSE PO SCH (13:51)
[2022-08-04] MEDS: SUCRALFATE 1 GM TAB PO SCH ×2 (13:52→20:24)
[2022-08-04] MEDS: METOPROLOL TART 12.5 MG PER 1/2 TAB PO SCH ×2 (13:52→20:23)
[2022-08-04] MEDS ORDERED: METOPROLOL SUCC *XL* 12.5MG PER 1/2 TAB (TopROL *XL*) PO SCH (21:00)
[2022-08-05] VITALS: BP_SYST 158; BP_SYST 161; BP_DIAS 80; BP_DIAS 85; TEMP 97; O2SAT 97
[2022-08-05 01:45] VITALS: O2SAT 88
[2022-08-05 01:50] VITALS: O2SAT 99
[2022-08-05] MEDS: hydrALAZINE 20MG/ML 1ML VIAL IV PRN (03:58)
[2022-08-05 04:00] VITALS: BP 163/74; TEMP 97.2; O2SAT 100
[2022-08-05 05:25] LABS: HEMATOCRIT 43.8 % (42.0-52.0); HEMOGLOBIN 14.4 g/dl (13.5-17.5); MEAN CORPUSCULAR HEMOGLOBIN 29.6 pg (27.0-33.0); MEAN CORPUSCULAR HGB CONC 32.9 g/dl (32.0-36.5); MEAN CORPUSCULAR VOLUME 89.9 fl (80.0-96.0); PLATELET COUNT, AUTOMATED 208 10^3/uL (150-450); RED BLOOD COUNT 4.87 10^6/uL (4.30-6.10); WHITE BLOOD COUNT 11.9 10^3/uL (4.0-10.0)
[2022-08-05 05:28] LABS: MAGNESIUM LEVEL 2.4 MG/DL (1.8-2.4)
[2022-08-05 07:12] LABS: CALCIUM LEVEL 9.1 MG/DL (8.3-10.6); CREATININE FOR GFR 1.36 MG/DL (0.70-1.30); GLOMERULAR FILTRATION RATE 54.8 (>42); POTASSIUM SERUM 3.4 MMOL/L (3.5-5.1)
[2022-08-05 08:00] VITALS: BP 154/66; TEMP 97.8; O2SAT 95
[2022-08-05] MEDS: GABAPENTIN 100 MG CAP PO SCH (08:47)
[2022-08-05] MEDS: PARoxetine 10MG/5ML SUSP ORAL SYRINGE *DRAW UP EXACT DOSE PO SCH (08:47)
[2022-08-05] MEDS: MEMANTINE 5MG TABLET (NAMENDA) PO SCH (08:47)
[2022-08-05] MEDS: AUGMENTIN 875 MG TAB PO SCH (08:47)
[2022-08-05] MEDS: predniSONE 20 MG TAB PO SCH (08:48)
[2022-08-05] MEDS: ATORVASTATIN 20 MG TAB PO SCH (08:48)
[2022-08-05] MEDS: SUCRALFATE 1 GM TAB PO SCH (08:48)
[2022-08-05] MEDS: METOPROLOL TART 12.5 MG PER 1/2 TAB PO SCH (08:48)
[2022-08-05] MEDS ORDERED: PANTOPRAZOLE 40MG TAB (PROTONIX) PO SCH (09:00)
[2022-08-05] MEDS ORDERED: FUROSEMIDE 20 MG TAB PO SCH (09:00)
[2022-08-05] MEDS ORDERED: PARoxetine 20MG TABLET PO SCH (09:00)
[2022-08-05 09:27] LABS: HEMOGLOBIN A1c 6.3 % (4.0-6.0)
[2022-08-05] MEDS ORDERED: PRED5TA PO (10:55)
[2022-08-05] MEDS ORDERED: BENZ1LOZ9 PO (10:55)
[2022-08-05] MEDS ORDERED: AMOX875T2 PO (10:55)
[2022-08-05] MEDS ORDERED: AMLO1TAB25 PO (10:55)
[2022-08-05] MEDS ORDERED: METF-838 PO (10:58)
[2022-08-05] MEDS ORDERED: POTA-165 PO (10:58)
[2022-08-05] MEDS ORDERED: POTASSIUM CHLORIDE 10MEQ SR TABLET PO ONE (11:00)
[2022-08-05 12:21] VITALS: BP 132/64
[2022-08-05] MEDS ORDERED: RIVAROXABAN 20MG TAB (XARELTO) PO SCH (18:00)
== END 2022-08-05 13:07 | disposition home or self-care (01) | DRG 153 ==
LOC: M ED 10:46 → M ED INP 14:39 → ENRESERV 15:22 → M ICU 16:15
PROVIDERS: ADMIT Internal Medicine; ATTEND Internal Medicine
PROC: 0CJS8ZZ Inspection of Larynx, Via Natural or Artificial Opening Endoscopic (ICD-10-PCS; principal; 2022-08-02)
DX: J36 Peritonsillar abscess (principal); I50.22 Chronic systolic (congestive) heart failure; I48.20 Chronic atrial fibrillation, unspecified; Z68.41 Body mass index [BMI] 40.0-44.9, adult; I25.10 Atherosclerotic heart disease of native coronary artery without angina pectoris; Z85.46 Personal history of malignant neoplasm of prostate; Z92.3 Personal history of irradiation; Z92.21 Personal history of antineoplastic chemotherapy; E66.9 Obesity, unspecified; G47.33 Obstructive sleep apnea (adult) (pediatric); Z90.49 Acquired absence of other specified parts of digestive tract; Z95.0 Presence of cardiac pacemaker; Z79.01 Long term (current) use of anticoagulants; Z79.899 Other long term (current) drug therapy; R07.89 Other chest pain; Z95.5 Presence of coronary angioplasty implant and graft; I11.0 Hypertensive heart disease with heart failure; R13.10 Dysphagia, unspecified; F32.A Depression, unspecified; E87.6 Hypokalemia

== ENCOUNTER → 2022-08-12 | Outpatient (RCR) | payer MEDICARE ==
[~2022-08-12] MED LIST changes: +AMLO1TAB25 PO; +AMOX875T2 PO; +BENZ1LOZ9 PO; +METF-838 PO; +POTA-165 PO
== END ==
LOC: M ONCR 07-18 15:06
PROVIDERS: ATTEND General Practice
DX: C61 Malignant neoplasm of prostate (principal)

== ENCOUNTER 2022-08-30 14:52 | Outpatient (RCR) | payer MEDICARE ==
[2022-09-12] MEDS ORDERED: ZYTI250T PO (08:16)
== END 2022-09-12 ==
LOC: M ONCR 14:52
PROVIDERS: ATTEND General Practice
DX: C61 Malignant neoplasm of prostate (principal)

== ENCOUNTER → 2022-10-31 | Outpatient (CLI) | payer MEDICARE ==
[~2022-10-31] MED LIST changes: +FURO40TA2
[2022-10-31 17:32] LABS: BLOOD UREA NITROGEN 27 MG/DL (9-23); CALCIUM LEVEL 8.8 MG/DL (8.3-10.6); CARBON DIOXIDE LEVEL 35 MMOL/L (20-31); CHLORIDE LEVEL 102 MMOL/L (98-107); CREATININE FOR GFR 1.15 MG/DL (0.70-1.30); GLOMERULAR FILTRATION RATE > 60.0 (>42); GLUCOSE, FASTING 124 MG/DL (74-106); POTASSIUM SERUM 3.9 MMOL/L (3.5-5.1); SODIUM LEVEL 144 MMOL/L (136-145)
== END ==
LOC: M WUC 10:49
PROVIDERS: ATTEND Physician Assistant
DX: I10 Essential (primary) hypertension (principal)

== ENCOUNTER → 2022-11-30 | Outpatient (CLI) | payer MEDICARE | LOC: M ONCR 12:51 | PROVIDERS: ATTEND Radiology Radiation Oncology | DX: C61 Malignant neoplasm of prostate (principal); R53.1 Weakness; M54.50 Low back pain, unspecified; Z71.2 Person consulting for explanation of examination or test findings; Z92.3 Personal history of irradiation; Z77.090 Contact with and (suspected) exposure to asbestos; Z77.098 Contact with and (suspected) exposure to other hazardous, chiefly nonmedicinal, chemicals; Z79.01 Long term (current) use of anticoagulants; Z79.52 Long term (current) use of systemic steroids; Z79.818 Long term (current) use of other agents affecting estrogen receptors and estrogen levels; Z79.84 Long term (current) use of oral hypoglycemic drugs; Z79.899 Other long term (current) drug therapy; Z88.8 Allergy status to other drugs, medicaments and biological substances ==

== ENCOUNTER → 2023-01-26 | Outpatient (CLI) | payer MEDICARE ==
[~2023-01-26] MED LIST changes: +GASTROGRAFIN SOLUTION 30ML As Ordered ONE
== END ==
LOC: M RAD 08:43
PROVIDERS: ATTEND Nurse Practitioner
DX: C61 Malignant neoplasm of prostate (principal)
CPT/HCPCS: 70470; 71260; 74018; 74177; Q9963; Q9967

== ENCOUNTER → 2023-01-26 | Outpatient (CLI) | payer MEDICARE ==
[~2023-01-26] MED LIST changes: -GASTROGRAFIN SOLUTION 30ML As Ordered ONE; +ISOVUE-370 76% 100ML VIAL As Ordered ONE
== END ==
LOC: M RAD 08:46
PROVIDERS: ATTEND Urology
DX: N20.0 Calculus of kidney (principal)

== ENCOUNTER 2023-02-24 11:46 | Emergency (ER) | payer MEDICARE ==
[~2023-02-24] VITALS: Ht 167.6 cm; Wt 123.2 kg
[~2023-02-24 11:46] MED LIST changes: -ISOVUE-370 76% 100ML VIAL As Ordered ONE
[2023-02-24] MEDS ORDERED: NORCO, ANEXSIA 5/325MG TABLET (HYDROcodone/ACETAMINOPHEN) PO ONE (12:15)
[2023-02-24 12:58] LABS: BASO % 0.2 % (0.0-1.0); EOS % 0.3 % (0.0-3.0); HEMATOCRIT 39.6 % (42.0-52.0); HEMOGLOBIN 12.7 g/dl (13.5-17.5); LYMPH # 0.4 10^3/uL (1.5-5.0); LYMPH % 4.8 % (24.0-44.0); MEAN CORPUSCULAR HEMOGLOBIN 29.5 pg (27.0-33.0); MEAN CORPUSCULAR HGB CONC 32.1 g/dl (32.0-36.5); MEAN CORPUSCULAR VOLUME 91.9 fl (80.0-96.0); MONO # 0.8 10^3/uL (0.0-0.8); MONO % 9.6 % (2.0-8.0); NEUTROPHILS # 7.3 10^3/uL (1.5-8.5); NEUTROPHILS % 84.6 % (36.0-66.0); PLATELET COUNT, AUTOMATED 257 10^3/uL (150-450); RED BLOOD COUNT 4.31 10^6/uL (4.30-6.10); WHITE BLOOD COUNT 8.6 10^3/uL (4.0-10.0)
[2023-02-24 13:24] LABS: CK-MB VALUE MASS < 1.0 NG/ML (<3.6)
[2023-02-24 13:25] LABS: LIPASE 36 U/L (12-53)
[2023-02-24 13:27] LABS: ALBUMIN 3.7 G/DL (3.2-5.2); ALKALINE PHOSPHATASE 83 U/L (46-116); ALT/SGPT 30 U/L (7.0-40); AST/SGOT 39 U/L (<34); BILIRUBIN,DIRECT 0.1 MG/DL (<0.4); BILIRUBIN,TOTAL 0.5 MG/DL (0.3-1.2); BLOOD UREA NITROGEN 40 MG/DL (9-23); CALCIUM LEVEL 9.1 MG/DL (8.3-10.6); CARBON DIOXIDE LEVEL 36 MMOL/L (20-31); CHLORIDE LEVEL 100 MMOL/L (98-107); CREATININE FOR GFR 1.31 MG/DL (0.70-1.30); GLOMERULAR FILTRATION RATE 57.3 (>42); GLUCOSE, FASTING 142 MG/DL (74-106); POTASSIUM SERUM 4.1 MMOL/L (3.5-5.1); SODIUM LEVEL 142 MMOL/L (136-145)
[2023-02-24 13:28] LABS: FREE T4 1.16 NG/DL (0.89-1.76)
[2023-02-24 13:31] LABS: CPK CREATINE PHOSPHOKINASE 77 U/L (46-171); MB/CK RELATIVE INDEX 1.29 (< OR =4)
[2023-02-24] MEDS ORDERED: MORPHINE 4 MG/ML 1ML VIAL IV ONE (13:40)
[2023-02-24 14:27] LABS: CK-MB VALUE MASS < 1.0 NG/ML (<3.6)
[2023-02-24 14:30] LABS: CPK CREATINE PHOSPHOKINASE 58 U/L (46-171); MB/CK RELATIVE INDEX 1.72 (< OR =4)
[2023-02-24 15:00] VITALS: BP 127/60; TEMP 97.6; O2SAT 94
== END 2023-02-24 15:24 | disposition home or self-care (01) ==
LOC: M ED 11:46 → EDBD 11:46 → M ED 15:24
DX: M79.602 Pain in left arm (principal); R55 Syncope and collapse; I48.91 Unspecified atrial fibrillation; I10 Essential (primary) hypertension; K21.9 Gastro-esophageal reflux disease without esophagitis; Z87.442 Personal history of urinary calculi; Z85.46 Personal history of malignant neoplasm of prostate; F41.9 Anxiety disorder, unspecified; F32.9 Major depressive disorder, single episode, unspecified; Z79.01 Long term (current) use of anticoagulants; Z88.8 Allergy status to other drugs, medicaments and biological substances; Z79.51 Long term (current) use of inhaled steroids; Z79.52 Long term (current) use of systemic steroids; Z79.84 Long term (current) use of oral hypoglycemic drugs

== ENCOUNTER → 2023-04-26 | Outpatient (REF) | payer MEDICARE ==
[~2023-04-26] MED LIST changes: +ANUS2.5C2 PR; +ANUS2.5C2 TOP; +FURO20TA2; +POTA-150
[2023-04-26 17:51] LABS: APPEARANCE, URINE CLEAR (CLEAR); BACTERIA, URINE AUTO NEGATIVE (NEGATIVE); BILIRUBIN, URINE AUTO NEGATIVE (NEGATIVE); BLOOD, URINE BLOOD NEGATIVE (NEGATIVE); COLOR, URINE YELLOW (YELLOW); GLUCOSE, URINE (UA) AUTO NEGATIVE (NEGATIVE); KETONE, URINE AUTO NEGATIVE (NEGATIVE); LEUKOCYTE ESTERASE, URINE AUTO NEGATIVE (NEGATIVE); MUCUS, URINE SMALL (NEGATIVE); NITRITE, URINE AUTO NEGATIVE (NEGATIVE); PROTEIN, URINE AUTO NEGATIVE (NEGATIVE); RBC, URINE AUTO 0 /HPF (0-3); SPECIFIC GRAVITY URINE AUTO 1.011 (1.002-1.035); SQUAMOUS EPITHELIAL CELL UR AU 0 /HPF (0-6); UROBILINOGEN, URINE AUTO 0.2 mg/dL (0.0-2.0); WBC, URINE AUTO 1 /HPF (0-3)
== END ==
LOC: M SMT 17:19
PROVIDERS: ATTEND Urology
DX: R30.0 Dysuria (principal)

== ENCOUNTER → 2023-04-28 | Outpatient (CLI) | payer MEDICARE | LOC: M LAB 12:15 → M RAD 12:15 | PROVIDERS: ATTEND Urology | DX: N20.0 Calculus of kidney (principal) ==

== ENCOUNTER → 2023-05-19 | Outpatient (REF) | payer MEDICARE ==
[2023-05-19 18:01] LABS: HEMATOCRIT 39.4 % (42.0-52.0); HEMOGLOBIN 12.5 g/dl (13.5-17.5); MEAN CORPUSCULAR HEMOGLOBIN 29.6 pg (27.0-33.0); MEAN CORPUSCULAR HGB CONC 31.7 g/dl (32.0-36.5); MEAN CORPUSCULAR VOLUME 93.1 fl (80.0-96.0); PLATELET COUNT, AUTOMATED 233 10^3/uL (150-450); RED BLOOD COUNT 4.23 10^6/uL (4.30-6.10); WHITE BLOOD COUNT 7.2 10^3/uL (4.0-10.0)
[2023-05-19 18:33] LABS: BLOOD UREA NITROGEN 28 MG/DL (9-23); CALCIUM LEVEL 9.2 MG/DL (8.3-10.6); CARBON DIOXIDE LEVEL 31 MMOL/L (20-31); CHLORIDE LEVEL 106 MMOL/L (98-107); CREATININE FOR GFR 1.13 MG/DL (0.70-1.30); GLOMERULAR FILTRATION RATE > 60.0 (>42); GLUCOSE, FASTING 199 MG/DL (74-106); SODIUM LEVEL 139 MMOL/L (136-145)
== END ==
LOC: M LABWUC 17:28
PROVIDERS: ATTEND Internal Medicine Gastroenterology
DX: K86.89 Other specified diseases of pancreas (principal)

== ENCOUNTER → 2023-06-14 | Outpatient (CLI) | payer MEDICARE | LOC: M ONCR 10:04 | PROVIDERS: ATTEND General Practice | DX: C61 Malignant neoplasm of prostate (principal); Z71.2 Person consulting for explanation of examination or test findings; Z79.01 Long term (current) use of anticoagulants; Z79.52 Long term (current) use of systemic steroids; Z79.84 Long term (current) use of oral hypoglycemic drugs; Z79.899 Other long term (current) drug therapy; Z79.818 Long term (current) use of other agents affecting estrogen receptors and estrogen levels; Z77.090 Contact with and (suspected) exposure to asbestos; Z77.098 Contact with and (suspected) exposure to other hazardous, chiefly nonmedicinal, chemicals; Z88.8 Allergy status to other drugs, medicaments and biological substances; Z92.3 Personal history of irradiation ==

== ENCOUNTER → 2023-09-12 | Outpatient (CLI) | payer MEDICARE | LOC: M RAD 09:19 | PROVIDERS: ATTEND Dietitian, Registered | DX: C61 Malignant neoplasm of prostate (principal) | CPT/HCPCS: 78306; A9503 ==

== ENCOUNTER → 2023-09-14 | Outpatient (CLI) | payer MEDICARE ==
[~2023-09-14] MED LIST changes: +GASTROGRAFIN SOLUTION 30ML As Ordered ONE; +ISOVUE-370 76% 100ML VIAL As Ordered ONE
== END ==
LOC: M RAD 12:15
PROVIDERS: ATTEND Dietitian, Registered
DX: C61 Malignant neoplasm of prostate (principal); K86.89 Other specified diseases of pancreas
CPT/HCPCS: 71260; 74177; Q9963; Q9967

== ENCOUNTER → 2023-12-20 | Outpatient (CLI) | payer MEDICARE ==
[~2023-12-20] MED LIST changes: +GABA-1172 PO; -GABA-282 PO; -GASTROGRAFIN SOLUTION 30ML As Ordered ONE; -ISOVUE-370 76% 100ML VIAL As Ordered ONE
== END ==
LOC: M ONCR 10:25
PROVIDERS: ATTEND General Practice
DX: C61 Malignant neoplasm of prostate (principal); R53.81 Other malaise; Z79.52 Long term (current) use of systemic steroids; Z79.818 Long term (current) use of other agents affecting estrogen receptors and estrogen levels; Z79.84 Long term (current) use of oral hypoglycemic drugs; Z79.899 Other long term (current) drug therapy; Z77.090 Contact with and (suspected) exposure to asbestos; Z77.098 Contact with and (suspected) exposure to other hazardous, chiefly nonmedicinal, chemicals; Z92.3 Personal history of irradiation

== ENCOUNTER 2024-05-01 07:04 | Emergency (ER) | payer MEDICARE ==
[~2024-05-01] VITALS: Ht 167.6 cm; Wt 125.8 kg
[~2024-05-01 07:04] MED LIST changes: +BUPR150T12; +KPHOS50TA PO
[2024-05-01] MEDS: MORPHINE 4 MG/ML 1ML VIAL IV ONE (09:24)
[2024-05-01 09:26] LABS: BASO % 0.2 % (0.0-1.0); EOS # 0.3 10^3/uL (0.0-0.5); EOS % 3.1 % (0.0-3.0); HEMATOCRIT 38.1 % (42.0-52.0); LYMPH # 0.5 10^3/uL (1.5-5.0); MEAN CORPUSCULAR HEMOGLOBIN 28.4 pg (27.0-33.0); MEAN CORPUSCULAR HGB CONC 31.5 g/dl (32.0-36.5); MEAN CORPUSCULAR VOLUME 90.1 fl (80.0-96.0); MONO # 0.7 10^3/uL (0.0-0.8); MONO % 7.8 % (2.0-8.0); NEUTROPHILS # 7.3 10^3/uL (1.5-8.5); NEUTROPHILS % 82.1 % (36.0-66.0); PLATELET COUNT, AUTOMATED 269 10^3/uL (150-450); RED BLOOD COUNT 4.23 10^6/uL (4.30-6.10); WHITE BLOOD COUNT 8.8 10^3/uL (4.0-10.0)
[2024-05-01 09:54] LABS: BLOOD UREA NITROGEN 20 MG/DL (9-23); CARBON DIOXIDE LEVEL 30 MMOL/L (20-31); CHLORIDE LEVEL 104 MMOL/L (98-107); CK-MB VALUE MASS < 1.0 NG/ML (<3.6); CREATININE FOR GFR 0.96 MG/DL (0.70-1.30); GLOMERULAR FILTRATION RATE > 60.0 (>42); GLUCOSE, FASTING 125 MG/DL (74-106); POTASSIUM SERUM 3.7 MMOL/L (3.5-5.1); SODIUM LEVEL 144 MMOL/L (136-145)
[2024-05-01 09:59] LABS: CPK CREATINE PHOSPHOKINASE 63 U/L (46-171); MB/CK RELATIVE INDEX 1.58 (< OR =4)
[2024-05-01] MEDS: LIDOCAINE 5% (LIDODERM) PATCH TD ONE (10:34)
[2024-05-01 10:47] VITALS: TEMP 97.6
[2024-05-01] MEDS ORDERED: LIDO5DIS41 TOP (12:03)
[2024-05-01] MEDS ORDERED: PERCOCET PO (12:03)
[2024-05-01 12:04] VITALS: BP 192/79; O2SAT 95
== END 2024-05-01 13:09 | disposition home or self-care (01) ==
LOC: M ED 07:04
DX: M54.12 Radiculopathy, cervical region (principal); J06.9 Acute upper respiratory infection, unspecified; S46.011A Strain of muscle(s) and tendon(s) of the rotator cuff of right shoulder, initial encounter; Y92.9 Unspecified place or not applicable; Y93.9 Activity, unspecified; Y99.9 Unspecified external cause status; I25.2 Old myocardial infarction; I10 Essential (primary) hypertension; G47.33 Obstructive sleep apnea (adult) (pediatric); F41.9 Anxiety disorder, unspecified; F32.A Depression, unspecified; Z85.46 Personal history of malignant neoplasm of prostate; Z88.8 Allergy status to other drugs, medicaments and biological substances; Z79.01 Long term (current) use of anticoagulants; Z79.84 Long term (current) use of oral hypoglycemic drugs; Z79.899 Other long term (current) drug therapy

== ENCOUNTER → 2024-07-02 | Outpatient (CLI) | payer MEDICARE ==
[~2024-07-02] MED LIST changes: -CLOT10TR PO; +CLOT10TR11 PO; +LIDO1ADH93 TOP; +LISI2.5T9; +PERCOCET PO
[2024-07-02 11:52] LABS: HEMOGLOBIN A1c 6.1 % (4.0-6.0)
== END ==
LOC: M ONCR 09:51
PROVIDERS: ATTEND General Practice
DX: C61 Malignant neoplasm of prostate (principal); H53.8 Other visual disturbances; R20.2 Paresthesia of skin; R53.1 Weakness; Z77.098 Contact with and (suspected) exposure to other hazardous, chiefly nonmedicinal, chemicals; Z79.84 Long term (current) use of oral hypoglycemic drugs; Z79.899 Other long term (current) drug therapy; Z88.8 Allergy status to other drugs, medicaments and biological substances; Z92.3 Personal history of irradiation; Z92.29 Personal history of other drug therapy
CPT/HCPCS: 36415; 83036; G0463

== ENCOUNTER 2025-01-14 10:19 | Inpatient (IN) | payer MEDICARE ==
[~2025-01-14] VITALS: Ht 172.7 cm; Wt 126.6 kg
[~2025-01-14 10:19] MED LIST changes: -BUPR150T12; +BUPR150T12 PO; -FURO40TA2; -POTA-150; +POTA-150 PO; +QUET1TAB17 PO
[2025-01-14 12:38] LABS: BASO # 0.0 10^3/uL (0.0-0.2); BASO % 0.2 % (0.0-1.0); EOS # 0.0 10^3/uL (0.0-0.5); EOS % 0.1 % (0.0-3.0); LYMPH # 0.7 10^3/uL (1.5-5.0); LYMPH % 5.1 % (24.0-44.0); MONO # 1.0 10^3/uL (0.0-0.8); MONO % 7.3 % (2.0-8.0); NEUTROPHILS # 11.5 10^3/uL (1.5-8.5); NEUTROPHILS % 86.7 % (36.0-66.0); PLATELET COUNT, AUTOMATED 252 10^3/uL (150-450)
[2025-01-14 13:11] LABS: ESTIMATED AVERAGE GLUCOSE 137.0 MG/DL (60-110)
[2025-01-14 13:13] LABS: CALCIUM LEVEL 8.8 MG/DL (8.3-10.6); CARBON DIOXIDE LEVEL 31.0 MMOL/L (20-31); CHLORIDE LEVEL 104.0 MMOL/L (98-107); CREATININE FOR GFR 1.16 MG/DL (0.70-1.30); GLOMERULAR FILTRATION RATE 66.1 (>42); POTASSIUM SERUM 4.0 MMOL/L (3.5-5.1); SODIUM LEVEL 143.0 MMOL/L (136-145)
[2025-01-14] MEDS: NS 500 ML IV ONE ×2 (14:42→16:52)
[2025-01-14] MEDS: MORPHINE 2 MG/ML 1 ML VIAL IV ONE (14:44)
[2025-01-14] MEDS: DOXYCYCLINE HYCLATE 100 MG TABLET PO ONE (14:44)
[2025-01-14] MEDS: cefTRIAXone SOD 1 GM in DEXTROSE 5% (D5W) ADV/MINI-BAG 50 ML IV ONE (14:44)
[2025-01-14] MEDS ORDERED: ASPI81TA26 PO (14:59)
[2025-01-14] MEDS ORDERED: HOME MED LIST COMPLETE! XX SCH (15:00)
[2025-01-14] MEDS ORDERED: MAALOX 30 ML SUSP *UDC PO PRN (16:10)
[2025-01-14] MEDS ORDERED: MOM 30 ML SUSPENSION UDC PO PRN (16:10)
[2025-01-14] MEDS ORDERED: LEVALBUTEROL 1.25 MG 0.5ML CONCENTRATE NEB INH PRN (16:20)
[2025-01-14] MEDS: ACETAMINOPHEN 325 MG TAB PO PRN (16:52)
[2025-01-14 17:42] LABS: C REACTIVE PROTEIN QUANTITATIV 26.49 MG/DL (<1.0); CPK CREATINE PHOSPHOKINASE 2644.0 U/L (46-171)
[2025-01-14] MEDS: RIVAROXABAN 20MG TAB PO SCH (20:20)
[2025-01-14] MEDS: CALCIUM/VITAMIN D 500 MG TAB PO SCH (21:00)
[2025-01-14] MEDS: GABAPENTIN 100 MG CAP PO SCH (22:23)
[2025-01-14] MEDS: ATORVASTATIN 20 MG TAB PO SCH (22:23)
[2025-01-14] MEDS: amLODIPine 5 MG TAB PO SCH (22:24)
[2025-01-14] MEDS: guaiFENesin DM LIQ 10ML UD PO SCH (22:24)
[2025-01-14] MEDS: DOXYCYCLINE HYCLATE 100 MG TABLET PO SCH (22:24)
[2025-01-14] MEDS: VITAMIN D 1,000 INTERNATIONAL UNITS TABLET PO SCH (22:24)
[2025-01-15] MEDS: buPROPion **XL** 150 MG TABLET PO SCH (08:09)
[2025-01-15] MEDS: POTASSIUM CHLORIDE 10MEQ SR TABLET PO SCH (08:10)
[2025-01-15] MEDS: PARoxetine 20MG TABLET PO SCH (08:10)
[2025-01-15] MEDS: MEMANTINE 5 MG TABLET PO SCH (08:10)
[2025-01-15] MEDS: ASPIRIN 81 MG ENTERIC TABLET PO SCH (08:10)
[2025-01-15 08:15] LABS: BASO # 0.0 10^3/uL (0.0-0.2); BASO % 0.1 % (0.0-1.0); EOS # 0.1 10^3/uL (0.0-0.5); EOS % 1.3 % (0.0-3.0); LYMPH # 0.6 10^3/uL (1.5-5.0); LYMPH % 6.1 % (24.0-44.0); MONO # 0.8 10^3/uL (0.0-0.8); MONO % 8.1 % (2.0-8.0); NEUTROPHILS # 8.5 10^3/uL (1.5-8.5); NEUTROPHILS % 83.9 % (36.0-66.0); PLATELET COUNT, AUTOMATED 243 10^3/uL (150-450)
[2025-01-15 08:32] LABS: CALCIUM LEVEL 8.1 MG/DL (8.3-10.6); CARBON DIOXIDE LEVEL 28.0 MMOL/L (20-31); CHLORIDE LEVEL 107.0 MMOL/L (98-107); CREATININE FOR GFR 1.08 MG/DL (0.70-1.30); GLOMERULAR FILTRATION RATE 72.0 (>42); MAGNESIUM LEVEL 2.1 MG/DL (1.8-2.4); POTASSIUM SERUM 4.7 MMOL/L (3.5-5.1); SODIUM LEVEL 144.0 MMOL/L (136-145)
[2025-01-15] MEDS ORDERED: ISOVUE-370 76% 100 ML VIAL As Ordered ONE (11:31)
[2025-01-15 12:00] VITALS: BP 143/65; TEMP 98.1; O2SAT 95
[2025-01-15] MEDS: ANALGESIC BALM CRM 3 OZ TOP SCH (12:00)
[2025-01-15 13:31] LABS: ALT/SGPT 58.0 U/L (7.0-40); AST/SGOT 130.0 U/L (<34)
[2025-01-15 14:30] LABS: APPEARANCE, URINE HAZY (CLEAR); BACTERIA, URINE AUTO NEGATIVE (NEGATIVE); BILIRUBIN, URINE AUTO NEGATIVE (NEGATIVE); BLOOD, URINE BLOOD NEGATIVE (NEGATIVE); GLUCOSE, URINE (UA) AUTO NEGATIVE (NEGATIVE); KETONE, URINE AUTO NEGATIVE (NEGATIVE); LEUKOCYTE ESTERASE, URINE AUTO NEGATIVE (NEGATIVE); MUCUS, URINE SMALL (NEGATIVE); NITRITE, URINE AUTO NEGATIVE (NEGATIVE); PROTEIN, URINE AUTO 2+ mg/dL (NEGATIVE); RBC, URINE AUTO 0 /HPF (0-3); SPECIFIC GRAVITY URINE AUTO 1.041 (1.002-1.035); SQUAMOUS EPITHELIAL CELL UR AU 0 /HPF (0-6); UROBILINOGEN, URINE AUTO 0.2 mg/dL (0.0-2.0); WBC, URINE AUTO 4 /HPF (0-3)
[2025-01-15] MEDS: cefTRIAXone SOD 1 GM in DEXTROSE 5% (D5W) ADV/MINI-BAG 50 ML IV SCH (16:05)
[2025-01-15 21:59] VITALS: BP 164/71
[2025-01-16 07:43] LABS: BASO # 0.0 10^3/uL (0.0-0.2); BASO % 0.3 % (0.0-1.0); EOS # 0.3 10^3/uL (0.0-0.5); EOS % 3.2 % (0.0-3.0); LYMPH # 0.4 10^3/uL (1.5-5.0); LYMPH % 5.2 % (24.0-44.0); MONO # 0.6 10^3/uL (0.0-0.8); MONO % 7.9 % (2.0-8.0); NEUTROPHILS # 6.4 10^3/uL (1.5-8.5); NEUTROPHILS % 82.8 % (36.0-66.0); PLATELET COUNT, AUTOMATED 255 10^3/uL (150-450)
[2025-01-16 08:08] LABS: CALCIUM LEVEL 8.8 MG/DL (8.3-10.6); CARBON DIOXIDE LEVEL 31.0 MMOL/L (20-31); CHLORIDE LEVEL 103.0 MMOL/L (98-107); CREATININE FOR GFR 0.98 MG/DL (0.70-1.30); GLOMERULAR FILTRATION RATE 80.9 (>42); MAGNESIUM LEVEL 2.1 MG/DL (1.8-2.4); POTASSIUM SERUM 4.5 MMOL/L (3.5-5.1); SODIUM LEVEL 141.0 MMOL/L (136-145)
[2025-01-16] MEDS: FLUZONE HIGH DOSE (65+) 0.5 ML SYRINGE (25-26) IM.IMMUN ONE (09:00)
[2025-01-16] MEDS: PNEUMOC 21-VAL CONJ-DIP CRM/PF 0.5 ML SYRINGE IM.IMMUN ONE (09:00)
[2025-01-17 01:30] VITALS: BP 137/79; TEMP 98; O2SAT 97
[2025-01-17 17:48] LABS: URINE STREP PNEUMONIAE ANTIGEN Not Detected (Not Detected)
[2025-01-18 23:18] LABS: MYCOPLASMA PNEUMONIAE IGG <= 0.90 (<=0.90); MYCOPLASMA PNEUMONIAE IGM 141.0 U/mL (<770)
== END 2025-01-16 14:39 | DRG 194 ==
LOC: M ED 10:19 → EDBD 10:19 → UNDOADMIN 16:06 → M ED INP 16:06 → M PCU 16:15 → M ED INP 01-17 01:24 → UNDODISIN 01-17 02:12
PROVIDERS: ADMIT Student in an Organized Health Care Education/Training Program; ATTEND Student in an Organized Health Care Education/Training Program
DX: J18.9 Pneumonia, unspecified organism (principal); M62.82 Rhabdomyolysis; I50.22 Chronic systolic (congestive) heart failure; E78.5 Hyperlipidemia, unspecified; I11.0 Hypertensive heart disease with heart failure; I48.91 Unspecified atrial fibrillation; G47.33 Obstructive sleep apnea (adult) (pediatric); I25.10 Atherosclerotic heart disease of native coronary artery without angina pectoris; K21.9 Gastro-esophageal reflux disease without esophagitis; G89.29 Other chronic pain; M54.9 Dorsalgia, unspecified; F32.A Depression, unspecified; F41.9 Anxiety disorder, unspecified; D64.9 Anemia, unspecified; M25.562 Pain in left knee; R41.89 Other symptoms and signs involving cognitive functions and awareness; Z98.84 Bariatric surgery status; Z95.0 Presence of cardiac pacemaker; R29.6 Repeated falls; R73.03 Prediabetes; Z79.82 Long term (current) use of aspirin; Z79.899 Other long term (current) drug therapy; Z88.8 Allergy status to other drugs, medicaments and biological substances; Z85.46 Personal history of malignant neoplasm of prostate; Z92.21 Personal history of antineoplastic chemotherapy; Z92.3 Personal history of irradiation

== ENCOUNTER 2025-01-16 13:54 | Inpatient (IN) | payer MEDICARE ==
[~2025-01-16] VITALS: Ht 167.6 cm; Wt 126.6 kg
[2025-01-16] VITALS (8 sets, daily range): BP systolic 117–184; BP diastolic 53–92; TEMP 97.5–97.9; O2SAT 97–99
[~2025-01-16 13:54] MED LIST changes: +ASPI81TA26 PO
[2025-01-16] MEDS ORDERED: NITROGLYCERIN 0.4 MG SUBL TABLET SL PRN (14:15)
[2025-01-16] MEDS ORDERED: LEVALBUTEROL 1.25 MG 0.5ML CONCENTRATE NEB INH PRN (14:15)
[2025-01-16] MEDS ORDERED: ACETAMINOPHEN 500 MG TAB PO PRN (14:30)
[2025-01-16] MEDS ORDERED: MIRALAX *UNIT DOSE* 17 GM PACKET PO PRN (14:30)
[2025-01-16] MEDS ORDERED: BISACODYL 10 MG SUPP PR PRN (14:30)
[2025-01-16] MEDS ORDERED: ONDANSETRON 4MG ORAL DISINTEGRATING TAB PO PRN (14:30)
[2025-01-16] MEDS ORDERED: MAALOX 30 ML SUSP *UDC PO PRN (14:30)
[2025-01-16] MEDS ORDERED: BISACODYL 5 MG TAB PO PRN (14:30)
[2025-01-16] MEDS ORDERED: SIMETHICONE 80MG CHEW TAB PO PRN (14:30)
[2025-01-16] MEDS ORDERED: MOM 30 ML SUSPENSION UDC PO PRN (14:30)
[2025-01-16] MEDS ORDERED: guaiFENesin ER TABLET 600 MG TAB PO PRN (14:45)
[2025-01-16] MEDS: cefTRIAXone SOD 1 GM in DEXTROSE 5% (D5W) ADV/MINI-BAG 50 ML IV SCH (16:37)
[2025-01-16] MEDS: RIVAROXABAN 20MG TAB PO SCH (16:37)
[2025-01-16] MEDS: ANALGESIC BALM CRM 3 OZ TOP SCH (16:39)
[2025-01-16] MEDS: CALCIUM/VITAMIN D 500 MG TAB PO SCH (20:30)
[2025-01-16] MEDS: ATORVASTATIN 20 MG TAB PO SCH (20:30)
[2025-01-16] MEDS: amLODIPine 5 MG TAB PO SCH (20:31)
[2025-01-16] MEDS: GABAPENTIN 100 MG CAP PO SCH (20:31)
[2025-01-16] MEDS: DOXYCYCLINE HYCLATE 100 MG TABLET PO SCH (20:32)
[2025-01-16] MEDS: PANTOPRAZOLE 40MG VIAL IV ONE (23:19)
[2025-01-16 23:41] LABS: PLATELET COUNT, AUTOMATED 299 10^3/uL (150-450)
[2025-01-16 23:57] LABS: ALT/SGPT 57.0 U/L (7.0-40); AST/SGOT 74.0 U/L (<34); CALCIUM LEVEL 8.5 MG/DL (8.3-10.6); CARBON DIOXIDE LEVEL 24.0 MMOL/L (20-31); CHLORIDE LEVEL 103.0 MMOL/L (98-107); CREATININE FOR GFR 1.17 MG/DL (0.70-1.30); GLOMERULAR FILTRATION RATE 65.4 (>42); POTASSIUM SERUM 5.0 MMOL/L (3.5-5.1); SODIUM LEVEL 138.0 MMOL/L (136-145)
[2025-01-17] MEDS ORDERED: MEMANTINE 5 MG TABLET PO SCH (09:00)
[2025-01-17] MEDS ORDERED: POTASSIUM CHLORIDE 10MEQ SR TABLET PO SCH (09:00)
[2025-01-17] MEDS ORDERED: buPROPion **XL** 150 MG TABLET PO SCH (09:00)
[2025-01-17] MEDS ORDERED: PARoxetine 20MG TABLET PO SCH (09:00)
[2025-01-17] MEDS ORDERED: ASPIRIN 81 MG ENTERIC TABLET PO SCH (09:00)
== END 2025-01-17 01:25 | disposition short-term general hospital (02) | DRG 557 ==
LOC: M PM&R 14:40
PROVIDERS: ADMIT Physical Medicine & Rehabilitation; ATTEND Physical Medicine & Rehabilitation
DX: M62.82 Rhabdomyolysis (principal); J18.9 Pneumonia, unspecified organism; I50.22 Chronic systolic (congestive) heart failure; K92.1 Melena; R55 Syncope and collapse; R29.6 Repeated falls; R41.89 Other symptoms and signs involving cognitive functions and awareness; I10 Essential (primary) hypertension; I48.91 Unspecified atrial fibrillation; E78.5 Hyperlipidemia, unspecified; G47.33 Obstructive sleep apnea (adult) (pediatric); I25.10 Atherosclerotic heart disease of native coronary artery without angina pectoris; K21.9 Gastro-esophageal reflux disease without esophagitis; G89.29 Other chronic pain; M54.9 Dorsalgia, unspecified; R73.03 Prediabetes; F41.9 Anxiety disorder, unspecified; F32.9 Major depressive disorder, single episode, unspecified; Z95.0 Presence of cardiac pacemaker; Z85.46 Personal history of malignant neoplasm of prostate; Z98.84 Bariatric surgery status; Z92.21 Personal history of antineoplastic chemotherapy; Z92.3 Personal history of irradiation; Z79.01 Long term (current) use of anticoagulants; Z79.82 Long term (current) use of aspirin; Z79.899 Other long term (current) drug therapy; Z88.8 Allergy status to other drugs, medicaments and biological substances

== ENCOUNTER 2025-01-17 01:11 | Inpatient (IN) | payer MEDICARE ==
[~2025-01-17] VITALS: Ht 167.6 cm; Wt 125.1 kg
[2025-01-17] VITALS (15 sets, daily range): BP systolic 129–196; BP diastolic 54–84; TEMP 97.3–98.9; O2SAT 94–98
[2025-01-17] MEDS ORDERED: ACETAMINOPHEN 325 MG TAB PO PRN (01:40)
[2025-01-17] MEDS: PANTOPRAZOLE SODIUM 40 MG in DEXTROSE 5% (D5W) ADV/MINI-BAG 50 ML IV SCH (02:56)
[2025-01-17] MEDS ORDERED: ISOVUE-370 76% 100 ML VIAL As Ordered ONE (03:27)
[2025-01-17] MEDS: hydrALAZINE 20 MG/ML 1 ML VIAL IV ONE (04:33)
[2025-01-17] MEDS ORDERED: GLUCOSE 4 GM CHEW PO PRN (07:20)
[2025-01-17] MEDS ORDERED: GLUCAGON INJ 1 MG VIAL SC PRN (07:20)
[2025-01-17] MEDS ORDERED: DEXTROSE 50% 50 ML SYRINGE IV PRN (07:20)
[2025-01-17 07:30] LABS: BASO # 0.0 10^3/uL (0.0-0.2); BASO % 0.5 % (0.0-1.0); EOS # 0.1 10^3/uL (0.0-0.5); EOS % 1.5 % (0.0-3.0); LYMPH # 0.7 10^3/uL (1.5-5.0); LYMPH % 8.9 % (24.0-44.0); MONO # 0.7 10^3/uL (0.0-0.8); MONO % 8.9 % (2.0-8.0); NEUTROPHILS # 5.9 10^3/uL (1.5-8.5); NEUTROPHILS % 77.7 % (36.0-66.0); PLATELET COUNT, AUTOMATED 261 10^3/uL (150-450)
[2025-01-17] MEDS ORDERED: HOME MED LIST COMPLETE! XX SCH (08:00)
[2025-01-17 08:07] LABS: ALT/SGPT 52.0 U/L (7.0-40); AST/SGOT 62.0 U/L (<34); CALCIUM LEVEL 8.0 MG/DL (8.3-10.6); CARBON DIOXIDE LEVEL 27.0 MMOL/L (20-31); CHLORIDE LEVEL 107.0 MMOL/L (98-107); CREATININE FOR GFR 1.17 MG/DL (0.70-1.30); GLOMERULAR FILTRATION RATE 65.4 (>42); MAGNESIUM LEVEL 2.0 MG/DL (1.8-2.4); POTASSIUM SERUM 4.9 MMOL/L (3.5-5.1); SODIUM LEVEL 142.0 MMOL/L (136-145)
[2025-01-17 09:28] LABS: INR 1.24
[2025-01-17] MEDS: DOXYCYCLINE HYCLATE 100 MG in DEXTROSE 5% (D5W) MINI-BAG PLU 100 ML IV SCH (10:34)
[2025-01-17] MEDS ORDERED: cefTRIAXone SOD 1 GM in DEXTROSE 5% (D5W) ADV/MINI-BAG 50 ML IV SCH (16:00)
[2025-01-17] MEDS: **hydrALAZINE** 10 MG TAB PO ONE (20:11)
[2025-01-17] MEDS: ATORVASTATIN 20 MG TAB PO SCH (20:12)
[2025-01-17] MEDS: amLODIPine 5 MG TAB PO SCH (20:12)
[2025-01-17] MEDS: CEFPODOXIME PROXETIL 200 MG TABLET PO SCH (20:12)
[2025-01-17] MEDS: GABAPENTIN 100 MG CAP PO SCH (20:12)
[2025-01-18 04:48] VITALS: BP 190/72; TEMP 96.6; O2SAT 98
[2025-01-18] MEDS: **hydrALAZINE** 10 MG TAB PO ONE (05:41)
[2025-01-18 06:03] LABS: ALT/SGPT 47.0 U/L (7.0-40); AST/SGOT 49.0 U/L (<34); CALCIUM LEVEL 8.4 MG/DL (8.3-10.6); CARBON DIOXIDE LEVEL 29.0 MMOL/L (20-31); CHLORIDE LEVEL 107.0 MMOL/L (98-107); CREATININE FOR GFR 1.05 MG/DL (0.70-1.30); GLOMERULAR FILTRATION RATE 74.5 (>42); POTASSIUM SERUM 4.5 MMOL/L (3.5-5.1); SODIUM LEVEL 144.0 MMOL/L (136-145)
[2025-01-18 07:34] VITALS: BP 164/69; TEMP 97; O2SAT 96
[2025-01-18] MEDS: buPROPion **XL** 150 MG TABLET PO SCH (08:23)
[2025-01-18] MEDS: POTASSIUM CHLORIDE 10MEQ SR TABLET PO SCH (08:23)
[2025-01-18] MEDS: PARoxetine 20MG TABLET PO SCH (08:24)
[2025-01-18] MEDS: MEMANTINE 5 MG TABLET PO SCH (08:24)
[2025-01-18 11:57] VITALS: BP 164/79; TEMP 97.3; O2SAT 96
[2025-01-18 15:53] VITALS: BP 126/72; TEMP 97.6; O2SAT 92
[2025-01-18 19:41] VITALS: BP 163/74; TEMP 97.5; O2SAT 95
[2025-01-19] VITALS (7 sets, daily range): BP systolic 131–168; BP diastolic 60–75; TEMP 96.8–98.1; O2SAT 93–98
[2025-01-19 07:27] LABS: BASO # 0.0 10^3/uL (0.0-0.2); BASO % 0.3 % (0.0-1.0); EOS # 0.2 10^3/uL (0.0-0.5); EOS % 2.7 % (0.0-3.0); LYMPH # 0.6 10^3/uL (1.5-5.0); LYMPH % 6.2 % (24.0-44.0); MONO # 0.8 10^3/uL (0.0-0.8); MONO % 8.3 % (2.0-8.0); NEUTROPHILS # 7.3 10^3/uL (1.5-8.5); NEUTROPHILS % 80.6 % (36.0-66.0); PLATELET COUNT, AUTOMATED 282 10^3/uL (150-450)
[2025-01-19] MEDS ORDERED: LIDOCAINE 2% 100 MG/5 ML SDV (FOR ANES.) As Ordered ONE (07:32)
[2025-01-19 07:50] LABS: ALT/SGPT 36.0 U/L (7.0-40); AST/SGOT 38.0 U/L (<34); CALCIUM LEVEL 8.3 MG/DL (8.3-10.6); CARBON DIOXIDE LEVEL 29.0 MMOL/L (20-31); CHLORIDE LEVEL 107.0 MMOL/L (98-107); CREATININE FOR GFR 0.96 MG/DL (0.70-1.30); GLOMERULAR FILTRATION RATE 82.9 (>42); POTASSIUM SERUM 4.6 MMOL/L (3.5-5.1); SODIUM LEVEL 143.0 MMOL/L (136-145)
[2025-01-19] MEDS ORDERED: CETACAINE SPRAY 5 GM As Ordered ONE (08:25)
[2025-01-19] MEDS ORDERED: PHENYLephrine 500MCG 5ML (100MCG/ML) SYRINGE As Ordered ONE (08:59)
[2025-01-19] MEDS: SUCRALFATE SUSP 1GM/10ML UD PO SCH (16:25)
[2025-01-19] MEDS: FERRIC CARBOXYMALTOSE INJ 750 MG, VIAL MATE ADAPTER 1 EACH in NS 100 ML IV ONE (16:25)
[2025-01-19] MEDS: PANTOPRAZOLE 40MG TAB PO SCH (21:04)
[2025-01-20] VITALS (7 sets, daily range): BP systolic 140–194; BP diastolic 65–80; TEMP 97.2–98.2; O2SAT 94–98
[2025-01-20 05:43] LABS: BASO # 0.0 10^3/uL (0.0-0.2); BASO % 0.3 % (0.0-1.0); EOS # 0.3 10^3/uL (0.0-0.5); EOS % 3.2 % (0.0-3.0); LYMPH # 0.4 10^3/uL (1.5-5.0); LYMPH % 4.8 % (24.0-44.0); MONO # 0.8 10^3/uL (0.0-0.8); MONO % 9.7 % (2.0-8.0); NEUTROPHILS # 6.2 10^3/uL (1.5-8.5); NEUTROPHILS % 80.1 % (36.0-66.0); PLATELET COUNT, AUTOMATED 272 10^3/uL (150-450)
[2025-01-20 06:16] LABS: ALT/SGPT 30.0 U/L (7.0-40); AST/SGOT 28.0 U/L (<34); CALCIUM LEVEL 7.9 MG/DL (8.3-10.6); CARBON DIOXIDE LEVEL 28.0 MMOL/L (20-31); CHLORIDE LEVEL 108.0 MMOL/L (98-107); CREATININE FOR GFR 0.95 MG/DL (0.70-1.30); GLOMERULAR FILTRATION RATE 84.0 (>42); POTASSIUM SERUM 4.2 MMOL/L (3.5-5.1); SODIUM LEVEL 145.0 MMOL/L (136-145)
[2025-01-20] MEDS: FUROSEMIDE 40 MG/4 ML VIAL IV ONE (08:33)
[2025-01-20 12:23] LABS: PLATELET COUNT, AUTOMATED 361 10^3/uL (150-450)
[2025-01-20] MEDS: hydrALAZINE 20 MG/ML 1 ML VIAL IV PRN (17:16)
[2025-01-20 18:11] LABS: PLATELET COUNT, AUTOMATED 351 10^3/uL (150-450)
[2025-01-20] MEDS: amLODIPine 10 MG TAB PO SCH (20:44)
[2025-01-21 00:17] VITALS: BP 152/67; TEMP 97.6; O2SAT 96
[2025-01-21 00:22] LABS: PLATELET COUNT, AUTOMATED 337 10^3/uL (150-450)
[2025-01-21 04:10] VITALS: BP 173/75; TEMP 97.2; O2SAT 97
[2025-01-21 04:38] VITALS: BP 173/75
[2025-01-21 05:59] VITALS: BP 138/62
[2025-01-21 06:29] LABS: ALT/SGPT 29.0 U/L (7.0-40); AST/SGOT 28.0 U/L (<34); CALCIUM LEVEL 8.4 MG/DL (8.3-10.6); CARBON DIOXIDE LEVEL 29.0 MMOL/L (20-31); CHLORIDE LEVEL 103.0 MMOL/L (98-107); CREATININE FOR GFR 1.01 MG/DL (0.70-1.30); GLOMERULAR FILTRATION RATE 78.0 (>42); POTASSIUM SERUM 3.8 MMOL/L (3.5-5.1); SODIUM LEVEL 140.0 MMOL/L (136-145)
[2025-01-21 06:31] LABS: BASO # 0.0 10^3/uL (0.0-0.2); BASO % 0.4 % (0.0-1.0); EOS # 0.3 10^3/uL (0.0-0.5); EOS % 3.8 % (0.0-3.0); LYMPH # 0.4 10^3/uL (1.5-5.0); LYMPH % 5.6 % (24.0-44.0); MONO # 0.6 10^3/uL (0.0-0.8); MONO % 8.7 % (2.0-8.0); NEUTROPHILS # 5.4 10^3/uL (1.5-8.5); NEUTROPHILS % 78.8 % (36.0-66.0); PLATELET COUNT, AUTOMATED 358 10^3/uL (150-450)
[2025-01-21 08:51] VITALS: BP 160/72
[2025-01-21] MEDS ORDERED: SUCR1ORA20 PO (10:44)
[2025-01-21] MEDS ORDERED: AMLO1TAB24 PO (10:44)
[2025-01-21] MEDS ORDERED: PANT40TA29 PO (10:44)
[2025-01-21 12:00] VITALS: BP 151/67; O2SAT 97
== END 2025-01-21 15:34 | DRG 377 ==
LOC: OBSVTOIN 01:24 → M ED INP 01:24 → M PCU 01:25
PROVIDERS: ADMIT Student in an Organized Health Care Education/Training Program; ATTEND Student in an Organized Health Care Education/Training Program
PROC: 30233N1 Transfusion of Nonautologous Red Blood Cells into Peripheral Vein, Percutaneous Approach (ICD-10-PCS; 2025-01-17)
PROC: 0DB78ZX Excision of Stomach, Pylorus, Via Natural or Artificial Opening Endoscopic, Diagnostic (ICD-10-PCS; principal; 2025-01-19 08:30)
DX: K25.4 Chronic or unspecified gastric ulcer with hemorrhage (principal); J18.9 Pneumonia, unspecified organism; M62.82 Rhabdomyolysis; I50.22 Chronic systolic (congestive) heart failure; D62 Acute posthemorrhagic anemia; Z68.41 Body mass index [BMI] 40.0-44.9, adult; I11.0 Hypertensive heart disease with heart failure; I48.91 Unspecified atrial fibrillation; E78.5 Hyperlipidemia, unspecified; G47.33 Obstructive sleep apnea (adult) (pediatric); K21.9 Gastro-esophageal reflux disease without esophagitis; I25.10 Atherosclerotic heart disease of native coronary artery without angina pectoris; G89.29 Other chronic pain; M54.9 Dorsalgia, unspecified; R41.89 Other symptoms and signs involving cognitive functions and awareness; F41.9 Anxiety disorder, unspecified; F32.A Depression, unspecified; E86.1 Hypovolemia; R29.6 Repeated falls; R73.03 Prediabetes; D50.9 Iron deficiency anemia, unspecified; E55.9 Vitamin D deficiency, unspecified; D35.02 Benign neoplasm of left adrenal gland; I27.20 Pulmonary hypertension, unspecified; E66.813 Obesity, class 3; Z98.84 Bariatric surgery status; Z95.0 Presence of cardiac pacemaker; Z79.82 Long term (current) use of aspirin; Z95.5 Presence of coronary angioplasty implant and graft; Z79.899 Other long term (current) drug therapy; Z85.46 Personal history of malignant neoplasm of prostate; Z92.21 Personal history of antineoplastic chemotherapy; Z92.3 Personal history of irradiation; Z88.8 Allergy status to other drugs, medicaments and biological substances; Z90.49 Acquired absence of other specified parts of digestive tract

== ENCOUNTER 2025-01-21 12:37 | Inpatient (IN) | payer MEDICARE ==
[~2025-01-21] VITALS: Ht 167.6 cm; Wt 126.7 kg
[~2025-01-21 12:37] MED LIST changes: +SUCR1ORA20 PO
[2025-01-21] MEDS ORDERED: ONDANSETRON 4MG ORAL DISINTEGRATING TAB PO PRN (14:10)
[2025-01-21] MEDS ORDERED: MOM 30 ML SUSPENSION UDC PO PRN (14:10)
[2025-01-21] MEDS ORDERED: BISACODYL 10 MG SUPP PR PRN (14:10)
[2025-01-21] MEDS ORDERED: BISACODYL 5 MG TAB PO PRN (14:10)
[2025-01-21] MEDS ORDERED: MAALOX 30 ML SUSP *UDC PO PRN (14:10)
[2025-01-21] MEDS ORDERED: NITROGLYCERIN 0.4 MG SUBL TABLET SL PRN (14:10)
[2025-01-21] MEDS ORDERED: SIMETHICONE 80MG CHEW TAB PO PRN (14:10)
[2025-01-21 15:35] VITALS: BP 188/77; TEMP 97.5; O2SAT 97
[2025-01-21 16:50] VITALS: BP 137/64
[2025-01-21] MEDS ORDERED: **hydrALAZINE HCL** 25 MG TAB PO SCH (17:00)
[2025-01-21] MEDS: SUCRALFATE SUSP 1GM/10ML UD PO SCH (17:50)
[2025-01-21 20:00] VITALS: BP 156/68; TEMP 97.5; O2SAT 95
[2025-01-21] MEDS: ATORVASTATIN 20 MG TAB PO SCH (20:48)
[2025-01-21] MEDS: GABAPENTIN 100 MG CAP PO SCH (20:48)
[2025-01-21] MEDS: PANTOPRAZOLE 40MG TAB PO SCH (20:49)
[2025-01-21] MEDS: amLODIPine 5 MG TAB PO SCH (20:49)
[2025-01-22 04:00] VITALS: BP 170/69; TEMP 98.1; O2SAT 94
[2025-01-22 06:26] LABS: BASO # 0.0 10^3/uL (0.0-0.2); BASO % 0.4 % (0.0-1.0); EOS # 0.3 10^3/uL (0.0-0.5); EOS % 3.4 % (0.0-3.0); LYMPH # 0.4 10^3/uL (1.5-5.0); LYMPH % 5.1 % (24.0-44.0); MONO # 0.7 10^3/uL (0.0-0.8); MONO % 9.4 % (2.0-8.0); NEUTROPHILS # 6.0 10^3/uL (1.5-8.5); NEUTROPHILS % 78.0 % (36.0-66.0); PLATELET COUNT, AUTOMATED 343 10^3/uL (150-450)
[2025-01-22 06:47] LABS: ALT/SGPT 25.0 U/L (7.0-40); AST/SGOT 25.0 U/L (<34); CALCIUM LEVEL 8.0 MG/DL (8.3-10.6); CARBON DIOXIDE LEVEL 29.0 MMOL/L (20-31); CHLORIDE LEVEL 107.0 MMOL/L (98-107); CREATININE FOR GFR 0.91 MG/DL (0.70-1.30); GLOMERULAR FILTRATION RATE 88.4 (>42); POTASSIUM SERUM 3.8 MMOL/L (3.5-5.1); SODIUM LEVEL 143.0 MMOL/L (136-145)
[2025-01-22] MEDS: PARoxetine 20MG TABLET PO SCH (08:57)
[2025-01-22] MEDS: POTASSIUM CHLORIDE 10MEQ SR TABLET PO SCH (08:57)
[2025-01-22] MEDS: FERROUS SULFATE 325 MG TAB PO SCH (08:57)
[2025-01-22] MEDS: buPROPion **XL** 150 MG TABLET PO SCH (08:58)
[2025-01-22] MEDS: MEMANTINE 5 MG TABLET PO SCH (08:58)
[2025-01-22] MEDS: **hydrALAZINE HCL** 25 MG TAB PO PRN (10:56)
[2025-01-22 12:00] VITALS: BP 144/63; TEMP 97; O2SAT 96
[2025-01-22] MEDS: LACTIC ACID 12% LOTION 225 GM BTL EXT SCH (17:22)
[2025-01-22 20:00] VITALS: BP 148/66; TEMP 97.1; O2SAT 96
[2025-01-23 04:00] VITALS: BP 136/57; TEMP 97; O2SAT 97
[2025-01-23 12:16] VITALS: TEMP 97.2; O2SAT 98
[2025-01-23 12:52] VITALS: BP 148/63
[2025-01-23] MEDS: **hydrALAZINE HCL** 25 MG TAB PO SCH (17:04)
[2025-01-23 20:00] VITALS: BP 150/65; TEMP 97; O2SAT 99
[2025-01-24 04:00] VITALS: BP 170/70; TEMP 98.3; O2SAT 93
[2025-01-24 06:55] LABS: PLATELET COUNT, AUTOMATED 417 10^3/uL (150-450)
[2025-01-24] MEDS: LIDOCAINE 5% PATCH TD SCH (07:25)
[2025-01-24] MEDS: amLODIPine 10 MG TAB PO SCH (07:26)
[2025-01-24] MEDS: FUROSEMIDE 20 MG TAB PO SCH (07:27)
[2025-01-24] MEDS: FLUZONE HIGH DOSE (65+) 0.5 ML SYRINGE (25-26) IM.IMMUN ONE (07:29)
[2025-01-24 12:00] VITALS: BP 167/70; TEMP 97.6; O2SAT 99
[2025-01-24] MEDS: **hydrALAZINE** 50 MG TAB PO SCH (16:54)
[2025-01-24] MEDS: PNEUMOC 21-VAL CONJ-DIP CRM/PF 0.5 ML SYRINGE IM.IMMUN ONE (16:55)
[2025-01-24 19:30] VITALS: BP 133/63; TEMP 98; O2SAT 93
[2025-01-24 20:00] VITALS: BP 179/72
[2025-01-25 04:00] VITALS: BP 138/65; TEMP 96.9; O2SAT 94
[2025-01-25 08:26] VITALS: BP 142/50
[2025-01-25 09:29] LABS: PLATELET COUNT, AUTOMATED 430 10^3/uL (150-450)
[2025-01-25 11:37] VITALS: BP 137/60; TEMP 98.8; O2SAT 94
[2025-01-25 16:35] VITALS: BP 142/66
[2025-01-25 20:00] VITALS: BP 138/65; TEMP 97.5; O2SAT 93
[2025-01-26 04:00] VITALS: BP 139/67; TEMP 97; O2SAT 94
[2025-01-26 06:18] LABS: BASO # 0.0 10^3/uL (0.0-0.2); BASO % 0.3 % (0.0-1.0); EOS # 0.1 10^3/uL (0.0-0.5); EOS % 1.9 % (0.0-3.0); LYMPH # 0.5 10^3/uL (1.5-5.0); LYMPH % 6.4 % (24.0-44.0); MONO # 0.5 10^3/uL (0.0-0.8); MONO % 7.0 % (2.0-8.0); NEUTROPHILS # 6.0 10^3/uL (1.5-8.5); NEUTROPHILS % 83.1 % (36.0-66.0); PLATELET COUNT, AUTOMATED 403 10^3/uL (150-450)
[2025-01-26 07:08] VITALS: BP 142/60
[2025-01-26 12:00] VITALS: BP 117/58; TEMP 97.9; O2SAT 94
[2025-01-26] MEDS: RIVAROXABAN 20MG TAB PO SCH (17:35)
[2025-01-26 20:00] VITALS: BP 159/67; TEMP 97.4; O2SAT 98
[2025-01-27 04:00] VITALS: BP 162/74; TEMP 97.4; O2SAT 93
[2025-01-27 06:24] LABS: BASO # 0.0 10^3/uL (0.0-0.2); BASO % 0.3 % (0.0-1.0); EOS # 0.2 10^3/uL (0.0-0.5); EOS % 2.3 % (0.0-3.0); LYMPH # 0.5 10^3/uL (1.5-5.0); LYMPH % 6.6 % (24.0-44.0); MONO # 0.6 10^3/uL (0.0-0.8); MONO % 8.7 % (2.0-8.0); NEUTROPHILS # 6.0 10^3/uL (1.5-8.5); NEUTROPHILS % 81.0 % (36.0-66.0); PLATELET COUNT, AUTOMATED 399 10^3/uL (150-450)
[2025-01-27 12:00] VITALS: BP 129/58; TEMP 97.1; O2SAT 92
[2025-01-27 20:00] VITALS: BP 137/51; TEMP 97.3; O2SAT 100
[2025-01-27] MEDS: DICLOFENAC EPOLAMINE 1.3% PATCH TOP SCH (20:10)
[2025-01-28 04:00] VITALS: BP 166/63; TEMP 97; O2SAT 92
[2025-01-28 06:25] LABS: BASO # 0.0 10^3/uL (0.0-0.2); BASO % 0.4 % (0.0-1.0); EOS # 0.1 10^3/uL (0.0-0.5); EOS % 1.8 % (0.0-3.0); LYMPH # 0.4 10^3/uL (1.5-5.0); LYMPH % 6.1 % (24.0-44.0); MONO # 0.6 10^3/uL (0.0-0.8); MONO % 8.3 % (2.0-8.0); NEUTROPHILS # 5.7 10^3/uL (1.5-8.5); NEUTROPHILS % 82.8 % (36.0-66.0); PLATELET COUNT, AUTOMATED 373 10^3/uL (150-450)
[2025-01-28] MEDS: ACETAMINOPHEN 325 MG TAB PO PRN (07:27)
[2025-01-28 11:59] VITALS: BP 130/58; TEMP 96.8; O2SAT 97
[2025-01-28] MEDS: TRIAMCINOLONE ACETONIDE SUSP 40MG/ML 1ML VIAL IA ONE (13:54)
[2025-01-28] MEDS: LIDOCAINE 1% MDV 20 ML VIAL SC ONE (13:54)
[2025-01-28] MEDS ORDERED: PANT40TA29 PO (17:02)
[2025-01-28] MEDS ORDERED: FURO20TA2 PO (17:02)
[2025-01-28] MEDS ORDERED: HYDR50TA46 PO (17:02)
[2025-01-28] MEDS ORDERED: FERR1TAB8 PO (17:02)
[2025-01-28] MEDS ORDERED: AMLO1TAB25 PO (17:02)
[2025-01-28] MEDS ORDERED: SUCR1ORA20 PO (17:02)
[2025-01-28] MEDS ORDERED: XARE20TA PO (17:02)
[2025-01-28 20:00] VITALS: BP 132/60; TEMP 98.5; O2SAT 92
[2025-01-29 04:00] VITALS: BP 155/67; TEMP 97; O2SAT 98
[2025-01-29 07:37] LABS: BASO # 0.0 10^3/uL (0.0-0.2); BASO % 0.1 % (0.0-1.0); EOS # 0.0 10^3/uL (0.0-0.5); EOS % 0.1 % (0.0-3.0); LYMPH # 0.3 10^3/uL (1.5-5.0); LYMPH % 4.1 % (24.0-44.0); MONO # 0.2 10^3/uL (0.0-0.8); MONO % 2.5 % (2.0-8.0); NEUTROPHILS # 6.7 10^3/uL (1.5-8.5); NEUTROPHILS % 92.5 % (36.0-66.0); PLATELET COUNT, AUTOMATED 418 10^3/uL (150-450)
[2025-01-29 08:28] VITALS: BP 149/70
== END 2025-01-29 11:45 | disposition home health service (06) | DRG 558 ==
LOC: M PM&R 15:35
PROVIDERS: ADMIT Physical Medicine & Rehabilitation; ATTEND Physical Medicine & Rehabilitation
PROC: 3E0U33Z Introduction of Anti-inflammatory into Joints, Percutaneous Approach (ICD-10-PCS; principal; 2025-01-28)
DX: M62.82 Rhabdomyolysis (principal); I50.22 Chronic systolic (congestive) heart failure; D62 Acute posthemorrhagic anemia; Z68.42 Body mass index [BMI] 45.0-49.9, adult; R29.6 Repeated falls; I11.0 Hypertensive heart disease with heart failure; I48.91 Unspecified atrial fibrillation; E78.5 Hyperlipidemia, unspecified; G47.33 Obstructive sleep apnea (adult) (pediatric); I25.10 Atherosclerotic heart disease of native coronary artery without angina pectoris; K21.9 Gastro-esophageal reflux disease without esophagitis; G89.29 Other chronic pain; M54.9 Dorsalgia, unspecified; R41.89 Other symptoms and signs involving cognitive functions and awareness; D50.9 Iron deficiency anemia, unspecified; R73.03 Prediabetes; I27.20 Pulmonary hypertension, unspecified; F41.9 Anxiety disorder, unspecified; E66.01 Morbid (severe) obesity due to excess calories; M25.562 Pain in left knee; F32.A Depression, unspecified; G57.92 Unspecified mononeuropathy of left lower limb; Z74.1 Need for assistance with personal care; Z74.09 Other reduced mobility; Z98.84 Bariatric surgery status; Z95.0 Presence of cardiac pacemaker; Z95.5 Presence of coronary angioplasty implant and graft; Z79.01 Long term (current) use of anticoagulants; Z79.82 Long term (current) use of aspirin; Z79.899 Other long term (current) drug therapy; Z88.8 Allergy status to other drugs, medicaments and biological substances; Z92.3 Personal history of irradiation; Z90.49 Acquired absence of other specified parts of digestive tract; Z85.46 Personal history of malignant neoplasm of prostate